=== PATIENT | female | born 1945 | race American Indian/Alaskan Native ===

== ENCOUNTER 2016-08-21 00:05 | Emergency (ER) | payer MEDICARE ==
[2016-08-21] MEDS ORDERED: TYLENOL PO ONE (00:46)
--- NOTE | 2016-08-21 03:08 | Emergency Department Report ---
HPI - General Chief Complaint: Rectal Pain Time Seen by Provider: 08/21/16 02:49 - HPI HPI: Room 7 The patient is a 70-year-old female presenting with a chief complaint of constipation. Patient presents the emergency department she has not had a bowel movement in 2-3 days. Patient denies nausea or vomiting. Patient does complain of right-sided abdominal pain. Approximately 2 weeks ago the patient was admitted to this Hospital and treated for colitis per the daughter. The patient was sent home on pain medication as well as antibiotics. Family cannot recall patient was placed on a stool softener with the pain medication. Location: Gastrointestinal system Duration: 2-3 days Quality: Pain Severity: Moderate Modifying factors: [see above] Context: [see above] Mode of transportation: [not driving] ED Past Medical Hx - Past Medical History Previous Medical History?: Yes Hx Hypertension: Yes Hx CVA: Yes Hx Heart Attack/AMI: Yes Hx Diabetes: Yes (NIDDM) Hx Renal Disease: Yes (ESRD) Hx Headaches / Migraines: Yes Additional medical history: gastroparesis - Surgical History Hx Coronary Stent: Yes Additional Surgical History: Right AKA - Family History Family history: no significant - Social History Smoking Status: Former Smoker (none for over 10 years) Substance Use Type: None (denies illicit drug use) - Medications Home Medications: Home Medications Medication Instructions Recorded Confirmed Last Taken Type Clopidogrel [Plavix] 75 mg PO QDAY 04/21/13 08/03/16 10/06/14 08:00 History amLODIPine [Norvasc] 5 mg PO DAILY 04/21/13 08/03/16 10/06/14 08:00 History Labetalol HCl [Trandate TAB] 300 mg PO DAILY 06/03/13 08/03/16 10/06/14 21:00 History Cyanocobalamin (Vitamin B-12) 1,000 mcg PO QDAY 12/09/13 08/03/16 10/06/14 20: 00 History [Vitamin B-12] Escitalopram [Lexapro] 10 mg PO DAILY 03/16/14 08/03/16 09/07/14 History Lisinopril 20 mg PO DAILY 03/16/14 08/03/16 10/06/14 08:00 History Sevelamer Carbonate [Renvela] 1,600 mg PO TIDWM 09/05/14 08/03/1615 17: 00 History Famotidine [Pepcid] 20 mg PO BID 09/07/14 08/03/16 10/06/14 17:00 History AtorvaSTATin [Lipitor] 20 mg PO DAILY 09/28/14 08/03/16 10/06/14 20:00 History Renal Cap 1 tab PO DAILY 09/28/14 08/03/16 10/06/14 08:00 History Ferrous Gluconate [Fergon 325 MG 324 mg PO BID 08/03/16 08/03/16 Unknown History tab] Ferrous Gluconate [Fergon 325 MG 324 mg PO BID #60 tablet 08/06/16 Unknown Rx tab] Folic Acid/Vit B Comp W-C [Renal 1 cap PO QDAY capsule 08/06/16 Unknown Rx Caps] Levofloxacin [Levaquin TAB] 250 mg PO Q24HR #7 tablet 08/06/16 Unknown Rx metroNIDAZOLE [Flagyl TAB] 500 mg PO Q8HR #20 tablet 08/06/16 Unknown Rx traMADol [Ultram 50 MG tab] 50 mg PO Q6HR PRN #30 tablet 08/06/16 Unknown Rx Docusate Sodium [Colace] 100 mg PO BID #60 capsule 08/21/16 Unknown Rx Lactulose [Cephulac] 20 gm PO QDAY PRN #90 ml 08/21/16 Unknown Rx ED Review of Systems ROS: Stated complaint: CONSTITPATION Other details as noted in HPI Comment: All other systems reviewed and negative Constitutional: denies: chills, fever Eyes: denies: eye pain, eye discharge, vision change ENT: denies: ear pain, throat pain Respiratory: denies: cough, shortness of breath, wheezing Cardiovascular: denies: chest pain, palpitations Endocrine: no symptoms reported Gastrointestinal: abdominal pain, constipation. denies: nausea, vomiting, diarrhea Genitourinary: denies: urgency, dysuria, discharge Musculoskeletal: denies: back pain, joint swelling, arthralgia Skin: denies: rash, lesions Neurological: denies: headache, weakness, paresthesias Psychiatric: denies: anxiety, depression Hematological/Lymphatic: denies: easy bleeding, easy bruising Physical Exam - Physical Exam Vital Signs: Vital Signs 08/21/16 00:38 Temperature 98 F Pulse Rate 79 Respiratory 20 Rate Blood Pressure 169/59 O2 Sat by Pulse 96 Oximetry Physical Exam: GENERAL: The patient is well-developed well-nourished female lying on stretcher appearing to be in moderate discomfort. [] HEENT: Normocephalic. Atraumatic. Extraocular motions are intact. Patient has moist mucous membranes. NECK: Supple. Trachea midline CHEST/LUNGS: Clear to auscultation. There is no respiratory distress noted. HEART/CARDIOVASCULAR: Regular. There is no tachycardia. There is no gallop rub or murmur. ABDOMEN: Abdomen is soft, with mild discomfort to palpation in the right abdomen. There is no tenderness palpation in the left abdomen. There is no rebound or guarding. Patient has normal bowel sounds. There is no abdominal distention. SKIN: There is no rash. There is no edema. There is no diaphoresis. NEURO: The patient is awake, alert, and oriented. The patient is cooperative. The patient has normal speech MUSCULOSKELETAL: There is no evidence of acute injury. RECTAL: MODERATE to large SIZEd GLOBUS OF BROWN STOOL IN THE PATIENT'S DIAPER ED Course Vital Signs 08/21/16 00:38 Temperature 98 F Pulse Rate 79 Respiratory 20 Rate Blood Pressure 169/59 O2 Sat by Pulse 96 Oximetry - Reevaluation(s) Reevaluation #1: 08/21/16 04:33 Patient states she feels better after having had a bowel movement. Patient denies any pain at this time ED Medical Decision Making - Radiology Data Radiology results: report reviewed (CT abdomen and pelvis), image reviewed (CT abdomen and pelvis) CT abdomen and pelvis (read by radiologist)-there is no evidence of intestinal or urinary tract instruction. No ileus or enteritis. There is significant fecal debris throughout the colon including the rectum. Some bowel wall thickening of the of the distal descending colon and rectum is noted. Slight inflammatory change in this region is possible. Fecal impaction is suspected. - Differential Diagnosis constipation, SBO, Critical care attestation.: If time is entered above; I have spent that time in minutes in the direct care of this critically ill patient, excluding procedure time. ED Disposition Clinical Impression: Constipation Disposition: DC-01 TO HOME OR SELFCARE Is pt being admited?: No Does the pt Need Aspirin: No Condition: Stable Instructions: Constipation (ED) Additional Instructions: Return to the emergency department immediately should you develop worsening symptoms, fever, inability to tolerate food or liquid or any other concerns. Prescriptions: Docusate Sodium [Colace] 100 mg PO BID #60 capsule Lactulose [Cephulac] 20 gm PO QDAY PRN #90 ml PRN Reason: Constipation Referrals: PRIMARY CARE, [Primary Care Provider] - 3-5 Days ARTUR BLOOM MD [Staff Physician] - 3-5 Days (Dr. Bloom is a nutrition services assistant. Please follow up with him for further evaluation) Time of Disposition: 04:41
--- NOTE | 2016-08-21 03:36 | Cat Scan Report ---
FINAL REPORT PROCEDURE: CT ABDOMEN PELVIS WO CON TECHNIQUE: Computerized axial tomography of the abdomen and pelvis was performed without intravenous contrast. This study is performed without intravascular contrast material and its sensitivity for abdominal and pelvic pathology, including neoplasms, inflammation, abscess, free fluid, thrombosis, arterial dissection and infarction, is reduced compared with a contrast enhanced study. HISTORY: right-sided abdominal pain, constipation COMPARISON: No prior studies are available for comparison. FINDINGS: Visualized lower thorax: Slight left lower lung infiltrate/atelectasis with mild bilateral lower lung effusions.. Liver: The liver size is normal. There are few small calcifications within the liver.. Spleen: The spleen size is normal. The attenuation is normal. Single small calcification in the upper spleen is identified. Granulomatous change is suspected.. Gallbladder and biliary system: The gallbladder is absent. No dilatation of the biliary ductal system. Pancreas: Normal. Adrenals: Normal. Kidneys: Both kidneys have a normal size. No hydronephrosis. There is a 3 millimeters stone in the lateral left renal cortex.. GI tract: The stomach is normal. The small bowel has a normal appearance. A small hiatal hernia is noted. No ileus or enteritis. The cecum and appendix region are normal. Moderate fecal debris throughout the colon. There is moderate fecal debris within the rectum. Fecal impaction is suspected. There is some thickening of the bowel wall involving the distal sigmoid colon is well as the rectum. This may be related to inflammatory change in this region. Recheck imaging after clinical therapy for this acute process is recommended.. Lymph nodes and mesentery: Normal. Vasculature: Moderate atherosclerosis of the aorta and all branching vessels.. Bladder: Normal. Reproductive organs: Normal. Peritoneum: No free fluid. Musculoskeletal structures: Moderate degenerative changes of the lower lumbar spine.. Other: None. IMPRESSION: There is no evidence of intestinal or urinary tract obstruction. No ileus or enteritis. There is significant fecal debris throughout the colon including the rectum. Some bowel wall thickening of the distal descending colon and rectum is noted. Slight inflammatory change in this region is possible. Fecal impaction is suspected..
[2016-08-21] MEDS ORDERED: CEPHULAC PO ONE (04:29)
[2016-08-21 04:42] VITALS: BP 142/56
[2016-08-21] MEDS ORDERED: ZOFRAN ONE (04:57)
[2016-08-21] MEDS ORDERED: ZOFRAN IV ONE (05:05)
== END 2016-08-21 06:31 | disposition home or self-care (01) ==
LOC: ED 00:05
DX: K59.00 Constipation, unspecified (principal); I12.0 Hypertensive chronic kidney disease with stage 5 chronic kidney disease or end stage renal disease; E11.22 Type 2 diabetes mellitus with diabetic chronic kidney disease; N18.6 End stage renal disease; G43.909 Migraine, unspecified, not intractable, without status migrainosus; I25.2 Old myocardial infarction; Z86.73 Personal history of transient ischemic attack (TIA), and cerebral infarction without residual deficits; Z95.1 Presence of aortocoronary bypass graft; Z87.891 Personal history of nicotine dependence; Z79.02 Long term (current) use of antithrombotics/antiplatelets
CPT/HCPCS: 74176; 96374; 99284; J2405

== ENCOUNTER 2017-09-30 06:04 | Emergency (ER) | payer MEDICARE ==
--- NOTE | 2017-09-30 07:20 | Emergency Department Report ---
ED General Adult HPI - General Chief complaint: Extremity Injury, Upper Stated complaint: HYPERTENSION Time Seen by Provider: 09/30/17 07:10 Source: patient, EMS (ems notes not available at time of chart dictation), RN notes reviewed, old records reviewed Mode of arrival: Stretcher Limitations: Physical Limitation - History of Present Illness Initial comments: Nephrology: [facility] nephrology Past medical history: Peripheral vascular disease, right above-knee amputation, hypertension, dyslipidemia, stroke with right-sided deficits, heart disease with stents 2, end-stage renal disease on dialysis, type 2 diabetes, typically in a wheelchair This is a 71-year-old female, right-hand dominant, unknown to this provider previously, who presents to the ER with a complaint of nontraumatic left hand pain and wrist pain. She indicates the pain started yesterday. She indicates she gets worse when she wheels her wheelchair around. The pain does not radiate anywhere. It is achy and sharp. She is due for dialysis today. She denies headache, neck pain, chest pain, abdominal pain, shortness of breath. She also denies abdominal pain -: Sudden Location: left, upper extremity Radiation: non-radiation Quality: aching Consistency: other Improves with: other Worsens with: other Associated Symptoms: malaise, weakness (chronic). denies: confusion, chest pain , cough, diaphoresis, fever/chills, headaches, loss of appetite, nausea/vomiting , rash, seizure, shortness of breath, syncope - Related Data Home Medications Medication Instructions Recorded Confirmed Last Taken Clopidogrel [Plavix] 75 mg PO QDAY 04/21/13 08/03/16 10/06/14 08:00 amLODIPine [Norvasc] 5 mg PO DAILY 04/21/13 08/03/16 10/06/14 08:00 Labetalol HCl [Trandate TAB] 300 mg PO DAILY 06/03/13 08/03/16 10/06/14 21:00 Cyanocobalamin (Vitamin B-12) 1,000 mcg PO QDAY 12/09/13 08/03/16 10/06/14 20:00 [Vitamin B-12] Escitalopram [Lexapro] 10 mg PO DAILY 03/16/14 08/03/16 09/07/14 Lisinopril 20 mg PO DAILY 03/16/14 08/03/1610/06/15 08:00 Sevelamer Carbonate [Renvela] 1,600 mg PO TIDWM 09/05/14 08/03/16 10/06/14 17:00 Famotidine [Pepcid] 20 mg PO BID 09/07/14 08/03/16 10/06/14 17:00 AtorvaSTATin [Lipitor] 20 mg PO DAILY 09/28/14 08/03/16 10/06/14 20:00 Renal Cap 1 tab PO DAILY 09/28/14 08/03/16 10/06/14 08:00 Ferrous Gluconate [Fergon 325 MG 324 mg PO BID 08/03/16 08/03/16 Unknown tab] Previous Rx's Medication Instructions Recorded Last Taken Type Ferrous Gluconate [Fergon 325 MG 324 mg PO BID #60 tablet 08/06/16 Unknown Rx tab] Folic Acid/Vit B Comp W-C [Renal 1 cap PO QDAY capsule 08/06/16 Unknown Rx Caps] Levofloxacin [Levaquin TAB] 250 mg PO Q24HR #7 tablet 08/06/16 Unknown Rx metroNIDAZOLE [Flagyl TAB] 500 mg PO Q8HR #20 tablet 08/06/16 Unknown Rx traMADol [Ultram 50 MG tab] 50 mg PO Q6HR PRN #30 tablet 08/06/16 Unknown Rx Docusate Sodium [Colace] 100 mg PO BID #60 capsule 08/21/16 Unknown Rx Lactulose [Cephulac] 20 gm PO QDAY PRN #90 ml 08/21/16 Unknown Rx Ondansetron [Zofran Odt] 4 mg PO Q8HR #12 tab.rapdis 08/21/16 Unknown Rx Acetaminophen [Tylenol Arthritis] 650 mg PO Q6HR PRN #30 tablet.er 09/30/17 Unknown Rx Allergies Allergy/AdvReac Type Severity Reaction Status Date / Time No Known Allergies Allergy Verified 06/14/13 10:48 ED Review of Systems ROS: Stated complaint: HYPERTENSION Other details as noted in HPI Constitutional: denies: fever Eyes: denies: eye discharge ENT: denies: epistaxis Respiratory: denies: cough Cardiovascular: denies: chest pain Gastrointestinal: denies: abdominal pain Genitourinary: denies: dysuria Musculoskeletal: arthralgia, myalgia Neurological: weakness ED Past Medical Hx - Past Medical History Previous Medical History?: Yes Hx Hypertension: Yes Hx CVA: Yes Hx Heart Attack/AMI: Yes Hx Congestive Heart Failure: No Hx Diabetes: Yes (NIDDM) Hx Deep Vein Thrombosis: No Hx Pulmonary Embolism: No Hx GERD: No Hx Liver Disease: No Hx Renal Disease: Yes (ESRD) Hx Sickle Cell Disease: No Hx Arthritis: No Hx Headaches / Migraines: Yes Hx Seizures: No Hx Kidney Stones: No Hx Psychiatric Treatment: No Hx Asthma: No Hx COPD: No Hx Tuberculosis: No Hx Dementia: No Hx HIV: No Additional medical history: gastroparesis - Surgical History Hx Coronary Stent: Yes Hx Open Heart Surgery: No Hx Pacemaker: No Hx Internal Defibrillator: No Hx Cholecystectomy: No Hx Appendectomy: No Hx Breast Surgery: No Additional Surgical History: Right AKA - Social History Smoking Status: Former Smoker Substance Use Type: None - Medications Home Medications: Home Medications Medication Instructions Recorded Confirmed Last Taken Type Clopidogrel [Plavix] 75 mg PO QDAY 04/21/13 08/03/16 10/06/14 08:00 History amLODIPine [Norvasc] 5 mg PO DAILY 04/21/13 08/03/16 10/06/14 08:00 History Labetalol HCl [Trandate TAB] 300 mg PO DAILY 06/03/13 08/03/16 10/06/14 21:00 History Cyanocobalamin (Vitamin B-12) 1,000 mcg PO QDAY 12/09/13 08/03/16 10/06/14 20: 00 History [Vitamin B-12] Escitalopram [Lexapro] 10 mg PO DAILY 03/16/14 08/03/16 09/07/14 History Lisinopril 20 mg PO DAILY 03/16/14 08/03/16 10/06/14 08:00 History Sevelamer Carbonate [Renvela] 1,600 mg PO TIDWM 09/05/14 08/03/16 10/06/14 17: 00 History Famotidine [Pepcid] 20 mg PO BID 09/07/14 08/03/16 10/06/14 17:00 History AtorvaSTATin [Lipitor] 20 mg PO DAILY 09/28/14 08/03/16 10/06/14 20:00 History Renal Cap 1 tab PO DAILY 09/28/14 08/03/16 10/06/14 08:00 History Ferrous Gluconate [Fergon 325 MG 324 mg PO BID 08/03/16 08/03/16 Unknown History tab] Ferrous Gluconate [Fergon 325 MG 324 mg PO BID #60 tablet 08/06/16 Unknown Rx tab] Folic Acid/Vit B Comp W-C [Renal 1 cap PO QDAY capsule 08/06/16 Unknown Rx Caps] Levofloxacin [Levaquin TAB] 250 mg PO Q24HR #7 tablet 08/06/16 Unknown Rx metroNIDAZOLE [Flagyl TAB] 500 mg PO Q8HR #20 tablet 08/06/16 Unknown Rx traMADol [Ultram 50 MG tab] 50 mg PO Q6HR PRN #30 tablet 08/06/16 Unknown Rx Docusate Sodium [Colace] 100 mg PO BID #60 capsule 08/21/16 Unknown Rx Lactulose [Cephulac] 20 gm PO QDAY PRN #90 ml 08/21/16 Unknown Rx Ondansetron [Zofran Odt] 4 mg PO Q8HR #12 tab.rapdis 08/21/16 Unknown Rx Acetaminophen [Tylenol Arthritis] 650 mg PO Q6HR PRN #30 tablet.er 09/30/17 Unknown Rx ED Physical Exam - General Limitations: Physical Limitation General appearance: alert, in no apparent distress - Head Head exam: Present: atraumatic, normocephalic - Eye Eye exam: Present: normal appearance, EOMI - ENT ENT exam: Present: normal exam, normal orophraynx, mucous membranes moist, normal external ear exam - Neck Neck exam: Present: normal inspection, full ROM. Absent: tenderness, meningismus - Respiratory Respiratory exam: Present: normal lung sounds bilaterally. Absent: respiratory distress - Cardiovascular Cardiovascular Exam: Present: regular rate, normal rhythm, normal heart sounds. Absent: bradycardia, tachycardia, irregular rhythm, systolic murmur, diastolic murmur, rubs, gallop - GI/Abdominal GI/Abdominal exam: Present: soft. Absent: distended, tenderness, guarding, rebound, rigid, pulsatile mass - Extremities Exam Extremities exam: Present: normal inspection, tenderness (sensation is intact to light touch in the bilateral deltoid, median, radial, ulnar distribution. There is no humerus tenderness, there is no elbow tenderness, and there is no forearm tenderness. The volar aspect of the left wrist is tender. There is pain with passive range of motion of the left wrist. Thumb opposition is intact , limited medical function is intact, finger flexors, finger extensors are intact.), other (2+ pulses noted in the bilateral upper extremities. There is an upper extremity AV fistula, with no redness, pus, streaking. The right lower extremity is status post above-knee application. The left lower extremity has 2+ edema in the lower extremity.). Absent: calf tenderness - Back Exam Back exam: Present: normal inspection. Absent: tenderness, CVA tenderness (R), paraspinal tenderness, vertebral tenderness - Neurological Exam Neurological exam: Present: alert, other (there is no facial droop. The tongue is midline. Extraocular movements are intact bilaterally. 5 out of 5 strength bilateral upper extremities, left lower extremity, right lower extremity stump also has 5 out of 5 strength.) - Psychiatric Psychiatric exam: Present: normal affect, normal mood - Skin Skin exam: Present: warm, dry, intact, normal color. Absent: rash ED Course Vital Signs 09/30/17 09/30/17 09/30/17 06:10 06:12 06:15 Temperature 98.2 F Pulse Rate 64 Respiratory 18 Rate Blood Pressure 169/55 169/55 Blood Pressure [Left] O2 Sat by Pulse 94 95 94 Oximetry 09/30/17 09/30/17 09/30/17 06:26 08:13 09:15 Temperature Pulse Rate 66 Respiratory 18 16 16 Rate Blood Pressure Blood Pressure 152/57 [Left] O2 Sat by Pulse 95 97 Oximetry - Reevaluation(s) Reevaluation #1: 09/30/17 07:55 Differential diagnosis, including but not limited to: Arthritis, tendinitis, fracture, dislocation, overuse syndrome, end-stage renal disease, hyperkalemia Assessment and plan: 71-year-old female, [id number] presenting with left wrist tenderness, and the context of wheelchair use. This is most likely a tendinitis. She is due for dialysis today. She has no other complaints. She is afebrile with reassuring vital signs. We will give her pain medication, obtain plain films of the wrist and hand, and obtain a basic metabolic panel to check potassium. We will reassess. Reevaluation #2: 09/30/17 09:53 X-ray of the wrist and hand negative for acute disease/fracture. Soft tissue swelling is noted. The physical examination is not consistent with compartment syndrome or cellulitis. I have discussed this with her private rn document improvement specialist, Dr. Romero, who indicates the patient can follow up for outpatient dialysis later on today, he will call the dialysis center and get her on the list for dialysis. ED Medical Decision Making - Lab Data Result diagrams: 09/30/17 08:12 Critical care attestation.: If time is entered above; I have spent that time in minutes in the direct care of this critically ill patient, excluding procedure time. ED Disposition Clinical Impression: End stage renal disease on dialysis, Left wrist pain Disposition: TO HOME OR SELFCARE Is pt being admited?: No Does the pt Need Aspirin: No Condition: Stable Instructions: Chronic Kidney Disease (ED) Additional Instructions: Keep the left wrist in a splint. Apply range of motion to the left upper extremity as tolerated. The patient should use the left hand as she can physically tolerated. Rest, and avoid heavy lifting and avoid strenuous physical activity. Follow-up with the primary care doctor or orthopedist within the next 2 weeks for the left hand and wrist pain. Continue outpatient medications and outpatient dialysis. Return to the ER right away with new pain , worsened pain, migration of pain, fevers, chills, lethargy, irritability, projectile vomiting, change in mental status, confusion, inability to tolerate feeds. Referrals: PRIMARY CARE, [Primary Care Provider] - 3-5 Days LANCE MONCADA MD [Staff Physician] - 3-5 Days MICHELA ROMERO MD [Staff Physician] - 3-5 Days
[2017-09-30] MEDS ORDERED: TYLENOL PO ONE (07:56)
--- NOTE | 2017-09-30 08:52 | XRay Report ---
LEFT WRIST, 2 VIEWS: LEFT HAND, 2 VIEWS: HISTORY: Hand pain, wrist pain. Osteopenia is evident. No evidence for fracture, dislocation or erosive joint pathology. Minor osteoarthritic changes are noted. There is mild soft tissue swelling at the level of the wrist. IMPRESSION: Osteopenia. Soft tissue swelling. Minor degenerative changes.
[2017-09-30 09:11] LABS: Calcium 8.6 mg/dL (8.4-10.2)
[2017-09-30 11:43] VITALS: BP 158/86
== END 2017-09-30 10:45 | disposition home or self-care (01) ==
LOC: ED 06:04
DX: M25.532 Pain in left wrist (principal); I13.11 Hypertensive heart and chronic kidney disease without heart failure, with stage 5 chronic kidney disease, or end stage renal disease; N18.6 End stage renal disease; E11.22 Type 2 diabetes mellitus with diabetic chronic kidney disease; Z99.2 Dependence on renal dialysis; G43.909 Migraine, unspecified, not intractable, without status migrainosus; E78.5 Hyperlipidemia, unspecified; Z89.611 Acquired absence of right leg above knee; Z87.891 Personal history of nicotine dependence
CPT/HCPCS: 36415; 80048; 99284

== ENCOUNTER 2017-10-09 11:44 | Inpatient (IN) | payer MEDICARE ==
[2017-10-09 12:58] LABS: Basophils # (Auto) 0.1 K/mm3 (0.0-0.1); Basophils % (Auto) 1.2 % (0.0-1.8); Eosinophils # (Auto) 0.1 K/mm3 (0.0-0.4); Eosinophils % (Auto) 1.5 % (0.0-4.3); Hematocrit 32.3 % (30.3-42.9); Hemoglobin 10.9 gm/dl (10.1-14.3); Lymphocytes # (Auto) 0.7 K/mm3 (1.2-5.4); Lymphocytes % (Auto) 15.9 % (13.4-35.0); Mean Corpuscular HGB Conc 34 % (30-34); Mean Corpuscular Hemoglobin 32 pg (28-32); Mean Corpuscular Volume 93 fl (79-97); Monocytes # (Auto) 0.4 K/mm3 (0.0-0.8); Monocytes % (Auto) 8.4 % (0.0-7.3); Platelet Count 147 K/mm3 (140-440); Red Blood Count 3.46 M/mm3 (3.65-5.03); Red Cell Distribution Width 15.9 % (13.2-15.2)
[2017-10-09 13:08] LABS: INR 0.99 (0.87-1.13)
[2017-10-09 13:23] LABS: Albumin 3.8 g/dL (3.9-5); Calcium 8.9 mg/dL (8.4-10.2)
[2017-10-09 13:49] LABS: Chol/HDL Ratio 1.83 %
--- NOTE | 2017-10-09 14:03 | Cat Scan Report ---
CT head without contrast: Weakness. Axial images demonstrates an area of diffuse encephalomalacia extending from the left frontal area to the posterior parietal region. There is mild enlargement of the peripheral sulci. The intracranial findings are otherwise unremarkable. The visualized bony structures are unremarkable. A small right ethmoid polyp is identified. The visualized sinuses are otherwise unremarkable. These findings are all unchanged compared to exams dating back to August 2014. Impression: Left encephalomalacia consistent with prior infarction. No acute findings.
--- NOTE | 2017-10-09 14:11 | Emergency Department Report ---
ED General Adult HPI - General Chief complaint: Weakness Stated complaint: NAUSEA/WEAK Time Seen by Provider: 10/09/17 12:11 Source: patient, EMS (ems notes not available at time of chart dictation), RN notes reviewed, old records reviewed Mode of arrival: Stretcher Limitations: Altered Mental Status, Physical Limitation - History of Present Illness Initial comments: This is a 71-year-old female. Please see my note detailing the patient's past medical history from 09/30/2017. She is sent to the ER from her dialysis clinic for evaluation of nausea and vomiting. As per verbal report from Elizabeth nurse practitioner director of sports performance, patient was plugged up to dialysis, vomited 2, given Phenergan, did not stop vomiting, and was sent to the ER for further evaluation. Upon arrival to the ER, the patient is sleepy, and only complains of having a dry mouth. She has no other complaints. She cannot tell me her last known well time, exacerbating or relieving factors, or radiation. -: unknown Severity scale (0 -10): 0 Quality: other Consistency: other Improves with: other Worsens with: other Associated Symptoms: confusion, nausea/vomiting, weakness, other - Related Data Home Medications Medication Instructions Recorded Confirmed Last Taken Clopidogrel [Plavix] 75 mg PO QDAY 04/21/13 10/09/17 10/06/14 08:00 Cyanocobalamin (Vitamin B-12) 1,000 mcg PO QDAY 12/09/13 10/09/17 10/06/14 20:00 [Vitamin B-12] Escitalopram [Lexapro] 10 mg PO DAILY 03/16/14 10/09/17 09/07/14 Sevelamer Carbonate [Renvela] 800 mg PO TIDWM 09/05/14 10/09/17 10/06/14 17:00 Famotidine [Pepcid] 20 mg PO BID 09/07/14 10/09/17 10/06/14 17:00 AtorvaSTATin [Lipitor] 20 mg PO DAILY 09/28/14 10/09/17 10/06/14 20:00 B Complex 11/Folic/C/Biot/Zinc 1 each PO DAILY 10/09/17 10/09/17 Unknown [Dialyvite with Zinc Tablet] Cinacalcet [Sensipar] 30 mg PO HS 10/09/17 10/09/17 Unknown Ergocalciferol [Vitamin D2] 1 cap PO QWEEK 10/09/17 10/09/17 Unknown HYDROcodone/APAP 7.5-325 [Staples 1 each PO Q6HR PRN 10/09/17 10/09/17 Unknown 7.5/325] Lisinopril [Zestril] 10 mg PO QDAY 10/09/17 10/09/17 Unknown Nephrocaps Softgel 1 each PO DAILY 10/09/17 10/09/17 Unknown Ondansetron [Zofran TAB] 4 mg PO Q6H PRN 10/09/17 10/09/17 Unknown Polyethylene Glycol 3350 17 gm PO PRN PRN 10/09/17 10/09/17 Unknown [Smoothlax] traMADol [Ultram 50 MG tab] 50 mg PO Q4H PRN 10/09/17 10/09/17 Unknown Previous Rx's Medication Instructions Recorded Last Taken Type Acetaminophen [Tylenol Arthritis] 650 mg PO Q6HR PRN #30 tablet.er 09/30/17 Unknown Rx Allergies Allergy/AdvReac Type Severity Reaction Status Date / Time No Known Allergies Allergy Verified 06/14/13 10:48 ED Review of Systems ROS: Stated complaint: NAUSEA/WEAK Other details as noted in HPI Comment: Unobtainable due to pts medical conditions ED Past Medical Hx - Past Medical History Hx Hypertension: Yes Hx CVA: Yes Hx Heart Attack/AMI: Yes Hx Congestive Heart Failure: No Hx Diabetes: Yes (NIDDM) Hx Deep Vein Thrombosis: No Hx Pulmonary Embolism: No Hx GERD: No Hx Liver Disease: No Hx Renal Disease: Yes (ESRD) Hx Sickle Cell Disease: No Hx Arthritis: No Hx Headaches / Migraines: Yes Hx Seizures: No Hx Kidney Stones: No Hx Psychiatric Treatment: No Hx Asthma: No Hx COPD: No Hx Tuberculosis: No Hx Dementia: No Hx HIV: No Additional medical history: gastroparesis - Surgical History Hx Coronary Stent: Yes Hx Open Heart Surgery: No Hx Pacemaker: No Hx Internal Defibrillator: No Hx Cholecystectomy: No Hx Appendectomy: No Hx Breast Surgery: No Additional Surgical History: Right AKA - Social History Smoking Status: Former Smoker Substance Use Type: None - Medications Home Medications: Home Medications Medication Instructions Recorded Confirmed Last Taken Type Clopidogrel [Plavix] 75 mg PO QDAY 04/21/13 10/09/17 10/06/14 08:00 History Cyanocobalamin (Vitamin B-12) 1,000 mcg PO QDAY 12/09/13 10/09/17 10/06/14 20: 00 History [Vitamin B-12] Escitalopram [Lexapro] 10 mg PO DAILY 03/16/14 10/09/17 09/07/14 History Sevelamer Carbonate [Renvela] 800 mg PO TIDWM 09/05/14 10/09/17 10/06/14 17:00 History Famotidine [Pepcid] 20 mg PO BID 09/07/14 10/09/17 10/06/14 17:00 History AtorvaSTATin [Lipitor] 20 mg PO DAILY 09/28/14 10/09/17 10/06/14 20:00 History Acetaminophen [Tylenol Arthritis] 650 mg PO Q6HR PRN #30 tablet.er 09/30/17 Unknown Rx B Complex 11/Folic/C/Biot/Zinc 1 each PO DAILY 10/09/17 10/09/17 Unknown History [Dialyvite with Zinc Tablet] Cinacalcet [Sensipar] 30 mg PO HS 10/09/17 10/09/17 Unknown History Ergocalciferol [Vitamin D2] 1 cap PO QWEEK 10/09/17 10/09/17 Unknown History HYDROcodone/APAP 7.5-325 [Staples 1 each PO Q6HR PRN 10/09/17 10/09/17 Unknown History 7.5/325] Lisinopril [Zestril] 10 mg PO QDAY 10/09/17 10/09/17 Unknown History Nephrocaps Softgel 1 each PO DAILY 10/09/17 10/09/17 Unknown History Ondansetron [Zofran TAB] 4 mg PO Q6H PRN 10/09/17 10/09/17 Unknown History Polyethylene Glycol 3350 17 gm PO PRN PRN 10/09/17 10/09/17 Unknown History [Smoothlax] traMADol [Ultram 50 MG tab] 50 mg PO Q4H PRN 10/09/17 10/09/17 Unknown History ED Physical Exam - General Limitations: Altered Mental Status General appearance: lethargic - Head Head exam: Present: atraumatic, normocephalic - Eye Eye exam: Present: normal appearance, EOMI - ENT ENT exam: Present: normal exam, normal orophraynx, mucous membranes moist, normal external ear exam - Neck Neck exam: Present: normal inspection, full ROM. Absent: tenderness, meningismus - Respiratory Respiratory exam: Present: decreased breath sounds. Absent: respiratory distress, wheezes, rales, rhonchi, stridor - Cardiovascular Cardiovascular Exam: Present: regular rate, normal rhythm, normal heart sounds, systolic murmur. Absent: bradycardia, tachycardia, irregular rhythm, diastolic murmur, rubs, gallop - GI/Abdominal GI/Abdominal exam: Present: soft. Absent: distended, tenderness, guarding, rebound, rigid, pulsatile mass - Extremities Exam Extremities exam: Present: normal inspection, pedal edema, other (2+ pulses noted in the bilateral upper, lower extremities. There is an upper extremity AV graft with no redness, pus or streaking and an appropriate thrill. Right lower extremity is status post above amputation). Absent: tenderness, calf tenderness - Back Exam Back exam: Present: normal inspection. Absent: tenderness, paraspinal tenderness - Neurological Exam Neurological exam: Present: altered, other (patient moves 4 extremities to command. Sensation is intact to light touch in the bilateral upper, lower extremities. Remainder of neurologic examination is limited secondary to patient's inability to cooperate with the exam.) - Psychiatric Psychiatric exam: Present: normal affect, normal mood - Skin Skin exam: Present: warm, dry, intact, normal color. Absent: rash ED Course Vital Signs 10/09/17 10/09/17 10/09/17 12:06 12:15 12:30 Temperature 98.6 F Pulse Rate 71 Respiratory 20 Rate Blood Pressure 180/65 184/64 Blood Pressure 185/54 [Left] O2 Sat by Pulse 97 95 96 Oximetry 10/09/17 10/09/17 10/09/17 13:01 13:24 13:26 Temperature 98.3 F 98.3 F Pulse Rate Respiratory Rate Blood Pressure 182/62 Blood Pressure [Left] O2 Sat by Pulse 96 Oximetry 10/09/17 10/09/17 10/09/17 13:57 14:01 14:15 Temperature Pulse Rate Respiratory Rate Blood Pressure 182/62 162/59 162/59 Blood Pressure [Left] O2 Sat by Pulse 97 98 93 Oximetry 10/09/17 10/09/17 10/09/17 16:02 16:15 16:31 Temperature Pulse Rate Respiratory Rate Blood Pressure 162/59 143/54 153/55 Blood Pressure [Left] O2 Sat by Pulse 100 94 94 Oximetry 10/09/17 10/09/17 10/09/17 16:45 17:01 17:15 Temperature Pulse Rate Respiratory Rate Blood Pressure 150/52 165/52 165/53 Blood Pressure [Left] O2 Sat by Pulse 95 95 96 Oximetry 10/09/17 10/09/17 17:23 17:25 Temperature 98.6 F Pulse Rate Respiratory 18 Rate Blood Pressure Blood Pressure [Left] O2 Sat by Pulse 100 Oximetry - Reevaluation(s) Reevaluation #1: 10/09/17 14:12 Differential diagnosis, including but not limited to: Intracranial lesion, pneumonia, urinary tract infection, intra-abdominal lesion, medication side effects Assessment and plan: 71-year-old female currently with altered mental status, who was sent to the ER for antecedent nausea and vomiting during dialysis. She is alert to name, place and month but is very sleepy. Her mental status has dramatically changed from my prior evaluation of this patient [address] scan of the brain is negative, urinalysis is pending, x-ray of the chest is unremarkable. Noncontrast CT scan of the abdomen and pelvis is pending. Nephrology on board, have discussed with Elizabeth, whose nurse practitioner working with Dr. Romero. I highly suspect that the primary etiology of the patient's somnolence is the Phenergan that was given to her prior to my arrival. A noncontrast CT scan of the abdomen and pelvis is pending, elevated troponin is appreciated, it is at baseline when compared to prior values, it is most likely secondary to her underlying renal insufficiency. The EKG is morphologically unchanged from prior. Reevaluation #2: 10/09/17 15:43 Patient was still sleepy but arousable. Her CT scan does not demonstrate any significant disease or pathology. Chronic findings noted. Suspect toxic encephalopathy from Phenergan versus dialysis disequilibrium syndrome. Dr. Feliz accepted the patient to the medical service for persistent encephalopathy. Patient was on a charcoal candidate as we do not know when she had the Phenergan, and she is very sleepy and therefore an aspiration risk. ED Medical Decision Making - Lab Data Result diagrams: 10/09/17 12:39 10/09/17 12:39 Vital Signs 10/09/17 10/09/17 10/09/17 12:06 12:15 12:30 Temperature 98.6 F Pulse Rate 71 Respiratory 20 Rate Blood Pressure 180/65 184/64 Blood Pressure 185/54 [Left] O2 Sat by Pulse 97 95 96 Oximetry 10/09/17 10/09/17 10/09/17 13:01 13:24 13:26 Temperature 98.3 F 98.3 F Pulse Rate Respiratory Rate Blood Pressure 182/62 Blood Pressure [Left] O2 Sat by Pulse 96 Oximetry Lab Results 10/09/17 10/09/17 10/09/17 Range/Units 12:39 12:39 12:39 WBC 4.7 (4.5-11.0) K/mm3 RBC 3.46 L (3.65-5.03) M/mm3 Hgb 10.9 (10.1-14.3) gm/dl Hct 32.3 (30.3-42.9) % MCV 93 (79-97) fl MCH 32 (28-32) pg MCHC 34 (30-34) % RDW 15.9 H (13.2-15.2) % Plt Count 147 (140-440) K/mm3 Lymph % (Auto) 15.9 (13.4-35.0) % [place] % (Auto) 8.4 H (0.0-7.3) % Eos % (Auto) 1.5 (0.0-4.3) % Baso % (Auto) 1.2 (0.0-1.8) % Lymph # 0.7 L (1.2-5.4) K/mm3 [place] # 0.4 (0.0-0.8) K/mm3 Eos # 0.1 (0.0-0.4) K/mm3 Baso # 0.1 (0.0-0.1) K/mm3 Seg Neutrophils % 73.0 H (40.0-70.0) % Seg Neutrophils # 3.4 (1.8-7.7) K/mm3 PT 13.6 (12.2-14.9) Sec. INR 0.99 (0.87-1.13) Sodium 136 L (137-145) mmol/L Potassium 4.2 (3.6-5.0) mmol/L Chloride 97.9 L (98-107) mmol/L Carbon Dioxide 20 L (22-30) mmol/L Anion Gap 22 mmol/L BUN 20 H (7-17) mg/dL Creatinine 4.8 H (0.7-1.2) mg/dL Estimated GFR 11 ml/min BUN/Creatinine Ratio 4 % Glucose 91 (65-100) mg/dL Calcium 8.9 (8.4-10.2) mg/dL Magnesium 2.00 (1.7-2.3) mg/dL Total Bilirubin 0.40 (0.1-1.2) mg/dL AST 18 (5-40) units/L ALT 11 (7-56) units/L Alkaline Phosphatase 261 H (35-129) units/L Total Creatine Kinase 91 (30-135) units/L Troponin T 0.215 H* (0.00-0.029) ng/mL Total Protein 6.9 (6.3-8.2) g/dL Albumin 3.8 L (3.9-5) g/dL Albumin/Globulin Ratio 1.2 % Triglycerides 101 (2-149) mg/dL Cholesterol 123 (50-199) mg/dL LDL Cholesterol Direct 44 L (50-130) mg/dL HDL Cholesterol 67 H (40-59) mg/dL Cholesterol/HDL Ratio 1.83 % TSH (0.270-4.200) mlU/mL 10/09/17 Range/Units 12:39 WBC (4.5-11.0) K/mm3 RBC (3.65-5.03) M/mm3 Hgb (10.1-14.3) gm/dl Hct (30.3-42.9) % MCV (79-97) fl MCH (28-32) pg MCHC (30-34) % RDW (13.2-15.2) % Plt Count (140-440) K/mm3 Lymph % (Auto) (13.4-35.0) % [place] % (Auto) (0.0-7.3) % Eos % (Auto) (0.0-4.3) % Baso % (Auto) (0.0-1.8) % Lymph # (1.2-5.4) K/mm3 [place] # (0.0-0.8) K/mm3 Eos # (0.0-0.4) K/mm3 Baso # (0.0-0.1) K/mm3 Seg Neutrophils % (40.0-70.0) % Seg Neutrophils # (1.8-7.7) K/mm3 PT (12.2-14.9) Sec. INR (0.87-1.13) Sodium (137-145) mmol/L Potassium (3.6-5.0) mmol/L Chloride (98-107) mmol/L Carbon Dioxide (22-30) mmol/L Anion Gap mmol/L BUN (7-17) mg/dL Creatinine (0.7-1.2) mg/dL Estimated GFR ml/min BUN/Creatinine Ratio % Glucose (65-100) mg/dL Calcium (8.4-10.2) mg/dL Magnesium (1.7-2.3) mg/dL Total Bilirubin (0.1-1.2) mg/dL AST (5-40) units/L ALT (7-56) units/L Alkaline Phosphatase (35-129) units/L Total Creatine Kinase (30-135) units/L Troponin T (0.00-0.029) ng/mL Total Protein (6.3-8.2) g/dL Albumin (3.9-5) g/dL Albumin/Globulin Ratio % Triglycerides (2-149) mg/dL Cholesterol (50-199) mg/dL LDL Cholesterol Direct (50-130) mg/dL HDL Cholesterol (40-59) mg/dL Cholesterol/HDL Ratio % TSH 0.921 (0.270-4.200) mlU/mL - EKG Data -: EKG Interpreted by Me EKG shows normal: sinus rhythm - EKG Data When compared to previous EKG there are: no significant change 10/09/17 14:11 Sinus, 72 bpm, left axis deviation, QTC within normal limits, prolonged IL interval, poor R-wave progression, abnormal EKG, not an ST elevation myocardial infarction, appears unchanged from prior from July 2016 - Radiology Data Radiology results: report reviewed, image reviewed interpreted by me: X-ray of the chest shows cardiomegaly and pulmonary vascular congestion. May be related to portable technique. No obvious infiltrate Noncontrast CT scan of the brain shows prior infarction with no acute findings Patient: SAVI ARROYO MR#: [id number] : 1945 Acct:[id number] Age/Sex: 71 / F ADM Date: 10/09/17 Loc: ED Attending Dr: Ordering Physician: FRANCISCO JAVIER RESENDIZ MD Date of Service: 10/09/17 Procedure(s): CT abdomen pelvis wo con Accession Number(s): [id number] cc: FRANCISCO JAVIER RESENDIZ MD CT chest and abdomen without contrast: Nausea vomiting, confusion. Transverse images are obtained of the low chest to the ischium. Coronal and sagittal reformatted images included. Comparison made to prior exam in August 2016. Patchy opacities are identified at both lung bases with small bilateral effusions. These findings are similar to prior exam. Scattered calcifications are present in the liver and spleen. The splenic length is 12.4 cm and the overall volume appears somewhat increased. No focal lesion noted. Splenic length may be slightly greater than previous study. The pancreatic head is difficult to fully assess but appears grossly normal. The gallbladder has been removed. Extensive vascular calcification is noted in the aorta, mesenteric and pancreatic vasculature. The renal arteries appear generally spared. A small calculus is noted in the inferior right kidney which moved from the superior to the lower pole compared to prior exam. Small calculus is noted in the inferior left kidney. There is no evidence of hydronephrosis and no renal masses. There is a small umbilical hernia containing mesenteric fat. The unopacified small bowel is generally unremarkable. Scattered fecal matter is present throughout the non-distended colon. The rectum however is gaseously distended. The renae-rectal thickening noted on prior examination is less prevalent on the current study. No focal inflammatory changes or abnormal fluid collections are identified. The reproductive organs are been removed. There are no destructive bone lesions noted however the bones are demineralized with diffuse discogenic narrowing at multiple levels with collapse at L4-5. Impressions: 1. Chronic effusion/patchy bibasilar opacities. 2. Evidence of prior granulomatous infection of the liver and spleen. Mild splenic enlargement of the spleen. 3. No evidence of bowel obstruction or inflammation. Gaseous distention of the rectum. 4. Nonobstructing tiny renal calculi. Critical care attestation.: If time is entered above; I have spent that time in minutes in the direct care of this critically ill patient, excluding procedure time. ED Disposition Clinical Impression: End stage renal disease on dialysis, Dialysis disequilibrium syndrome Disposition: OP ADMIT IP TO THIS HOSP Is pt being admited?: Yes Condition: Fair
--- NOTE | 2017-10-09 14:41 | XRay Report ---
FINAL REPORT EXAM: XR CHEST 1V AP HISTORY: Weakness, NAUSEA, SOB TECHNIQUE: Frontal portable examination of the chest PRIORS: None FINDINGS: Nonspecific slight elevation of left diaphragm. Atherosclerotic calcification in aorta. Degenerative change in the regional skeleton. No pneumothorax. Cardiac silhouette size slightly enlarged possibly with mild vascular congestion. Bilateral lateral lung base pleural thickening may be scar or small effusions. Slight patchy opacity in lower left lung may be scar, tracking fluid, edema, or pneumonitis. IMPRESSION: Slight cardiomegaly possibly with mild vascular congestion Pleural thickening may be scar or small bilateral pleural effusions Lower left lung opacity may be scar, tracking fluid, or mild edema. Differential includes pneumonitis
--- NOTE | 2017-10-09 15:22 | Cat Scan Report ---
CT chest and abdomen without contrast: Nausea vomiting, confusion. Transverse images are obtained of the low chest to the ischium. Coronal and sagittal reformatted images included. Comparison made to prior exam in August 2016. Patchy opacities are identified at both lung bases with small bilateral effusions. These findings are similar to prior exam. Scattered calcifications are present in the liver and spleen. The splenic length is 12.4 cm and the overall volume appears somewhat increased. No focal lesion noted. Splenic length may be slightly greater than previous study. The pancreatic head is difficult to fully assess but appears grossly normal. The gallbladder has been removed. Extensive vascular calcification is noted in the aorta, mesenteric and pancreatic vasculature. The renal arteries appear generally spared. A small calculus is noted in the inferior right kidney which moved from the superior to the lower pole compared to prior exam. Small calculus is noted in the inferior left kidney. There is no evidence of hydronephrosis and no renal masses. There is a small umbilical hernia containing mesenteric fat. The unopacified small bowel is generally unremarkable. Scattered fecal matter is present throughout the non-distended colon. The rectum however is gaseously distended. The renae-rectal thickening noted on prior examination is less prevalent on the current study. No focal inflammatory changes or abnormal fluid collections are identified. The reproductive organs are been removed. There are no destructive bone lesions noted however the bones are demineralized with diffuse discogenic narrowing at multiple levels with collapse at L4-5. Impressions: 1. Chronic effusion/patchy bibasilar opacities. 2. Evidence of prior granulomatous infection of the liver and spleen. Mild splenic enlargement of the spleen. 3. No evidence of bowel obstruction or inflammation. Gaseous distention of the rectum. 4. Nonobstructing tiny renal calculi.
--- NOTE | 2017-10-09 16:01 | History and Physical Report ---
History of Present Illness Chief complaint: Confusion History of present illness: 71 YO Female with ESRD on HD(M,W,F), CVA, VT, DM, Migraine QUINONEZ, CAD S/P Stent Placement, HTN, Gastroparesis presents to ED for evaluation. Pt is unable to provide detailed history. Pt history provided by EMS, as well as dialysis clinic staff. Pt was in her usual state of health upon waking from sleep this morning. Pt went to her scheduled dialysis appointment. Pt experienced acute onset of confusion, nausea, and vomiting, after dialysis. EMS was notified, and upon arrival the patient was found to be lethargic. Pt transported to [facility] for further evaluation. Pt seen and evaluated in ED and found to have Encephalopathy as well as Dialysis Disequilibrium Syndrome. Pt admitted to medical floor. No reports of fever, chills, CP, palpitations, trauma, BRBPR, unintentional weight loss, night sweats, or recent ill contacts. Past History Past Medical History: acute VT, CAD, diabetes, ESRD, hyperlipidemia, migraines, stroke Past Surgical History: Other (Jeremias Kline) Social history: single Family history: diabetes. denies: hypertension Medications and Allergies Allergies Allergy/AdvReac Type Severity Reaction Status Date / Time No Known Allergies Allergy Verified 06/14/13 10:48 Home Medications Medication Instructions Recorded Confirmed Last Taken Type Clopidogrel [Plavix] 75 mg PO QDAY 04/21/13 08/03/16 10/06/14 08:00 History amLODIPine [Norvasc] 5 mg PO DAILY 04/21/13 08/03/16 10/06/14 08:00 History Labetalol HCl [Trandate TAB] 300 mg PO DAILY 06/03/13 08/03/16 10/06/14 21:00 History Cyanocobalamin (Vitamin B-12) 1,000 mcg PO QDAY 12/09/13 08/03/16 10/06/14 20: 00 History [Vitamin B-12] Escitalopram [Lexapro] 10 mg PO DAILY 03/16/14 08/03/16 09/07/14 History Lisinopril 20 mg PO DAILY 03/16/14 08/03/16 10/06/14 08:00 History Sevelamer Carbonate [Renvela] 1,600 mg PO TIDWM 09/05/14 08/03/16 10/06/14 17: 00 History Famotidine [Pepcid] 20 mg PO BID 09/07/14 08/03/16 10/06/14 17:00 History AtorvaSTATin [Lipitor] 20 mg PO DAILY 09/28/14 08/03/16 10/06/14 20:00 History Renal Cap 1 tab PO DAILY 09/28/14 08/03/16 10/06/14 08:00 History Ferrous Gluconate [Fergon 325 MG 324 mg PO BID 08/03/16 08/03/16 Unknown History tab] Ferrous Gluconate [Fergon 325 MG 324 mg PO BID #60 tablet 08/06/16 Unknown Rx tab] Folic Acid/Vit B Comp W-C [Renal 1 cap PO QDAY capsule 08/06/16 Unknown Rx Caps] levoFLOXacin [Levaquin TAB] 250 mg PO Q24HR #7 tablet 08/06/16 Unknown Rx metroNIDAZOLE [Flagyl TAB] 500 mg PO Q8HR #20 tablet 08/06/16 Unknown Rx traMADol [Ultram 50 MG tab] 50 mg PO Q6HR PRN #30 tablet 08/06/16 Unknown Rx Docusate Sodium [Colace] 100 mg PO BID #60 capsule 08/21/16 Unknown Rx Lactulose [Cephulac] 20 gm PO QDAY PRN #90 ml 08/21/16 Unknown Rx Ondansetron [Zofran Odt] 4 mg PO Q8HR #12 tab.rapdis 08/21/16 Unknown Rx Acetaminophen [Tylenol Arthritis] 650 mg PO Q6HR PRN #30 tablet.er 09/30/17 Unknown Rx Review of Systems ROS unobtainable: due to mental status Exam - Constitutional Vitals: Temp Pulse Resp BP Pulse Ox 98.3 F 71 20 182/62 96 10/09/17 13:26 10/09/17 12:06 10/09/17 12:06 10/09/17 13:01 10/09/17 13:01 General appearance: Present: mild distress, obese - EENT Eyes: Present: PERRL, miosis ENT: hearing intact, clear oral mucosa - Neck Neck: Present: supple, normal ROM - Respiratory Respiratory effort: normal Respiratory: bilateral: CTA - Cardiovascular Heart Sounds: Present: S1 & S2. Absent: rub, click - Extremities Extremities: pulses symmetrical, No edema - Abdominal General gastrointestinal: Present: soft, non-tender, non-distended, normal bowel sounds Female genitourinary: Present: normal - Integumentary Integumentary: Present: clear, warm, dry - Musculoskeletal Musculoskeletal: generalized weakness - Psychiatric Psychiatric: no intact judgment & insight, no memory intact - Neurologic Neurologic: no gait normal Results - Labs CBC & Chem 7: 10/09/17 12:39 10/09/17 12:39 Labs: Abnormal lab results 10/09/17 10/09/17 10/09/17 Range/Units 12:39 12:39 14:09 RBC 3.46 L (3.65-5.03) M/mm3 RDW 15.9 H (13.2-15.2) % [place] % (Auto) 8.4 H (0.0-7.3) % Lymph # 0.7 L (1.2-5.4) K/mm3 Seg Neutrophils % 73.0 H (40.0-70.0) % Sodium 136 L (137-145) mmol/L Chloride 97.9 L (98-107) mmol/L Carbon Dioxide 20 L (22-30) mmol/L BUN 20 H (7-17) mg/dL Creatinine 4.8 H (0.7-1.2) mg/dL Alkaline Phosphatase 261 H (35-129) units/L Troponin T 0.215 H* (0.00-0.029) ng/mL Albumin 3.8 L (3.9-5) g/dL LDL Cholesterol Direct 44 L (50-130) mg/dL HDL Cholesterol 67 H (40-59) mg/dL Salicylates < 0.3 L (2.8-20.0) mg/dL Acetaminophen (10.0-30.0) ug/mL 10/09/17 Range/Units 14:09 RBC (3.65-5.03) M/mm3 RDW (13.2-15.2) % [place] % (Auto) (0.0-7.3) % Lymph # (1.2-5.4) K/mm3 Seg Neutrophils % (40.0-70.0) % Sodium (137-145) mmol/L Chloride (98-107) mmol/L Carbon Dioxide (22-30) mmol/L BUN (7-17) mg/dL Creatinine (0.7-1.2) mg/dL Alkaline Phosphatase (35-129) units/L Troponin T (0.00-0.029) ng/mL Albumin (3.9-5) g/dL LDL Cholesterol Direct (50-130) mg/dL HDL Cholesterol (40-59) mg/dL Salicylates (2.8-20.0) mg/dL Acetaminophen < 5.0 L (10.0-30.0) ug/mL Assessment and Plan - Patient Problems (1) ESRD (end stage renal disease) on dialysis Current Visit: Yes Status: Acute Plan to address problem: Nephrology consulted, avoid nephrotoxic agents, monitor uop q shift, CMP, dialysis as per renal team. (2) Dialysis disequilibrium syndrome Current Visit: Yes Status: Acute Plan to address problem: Nephrology consulted in ED, dialysis as per renal team, supportive care. (3) Diabetes Current Visit: Yes Status: Acute Plan to address problem: ADA diet, insulin, accu check (4) HTN (hypertension) Current Visit: Yes Status: Acute Qualifiers: Hypertension type: essential hypertension Qualified Code(s): I10 - Essential (primary) hypertension Plan to address problem: monitor bp q shift, continue medical management. (5) DVT prophylaxis Current Visit: Yes Status: Acute Plan to address problem: SCD to BLE while in bed.
[2017-10-09] MEDS ORDERED: PROVENTIL IH PRN (16:21)
[2017-10-09] MEDS ORDERED: TYLENOL PO PRN (16:21)
[2017-10-09] MEDS ORDERED: ZOFRAN IV PRN (16:21)
[2017-10-09] MEDS ORDERED: SODIUM CHLORIDE FLUSH SYRINGE 10 ML IV PRN (16:21)
[2017-10-09] MEDS: SODIUM CHLORIDE FLUSH SYRINGE 10 ML IV SCH (22:49)
--- NOTE | 2017-10-10 09:26 | Consultation ---
History of Present Illness - Reason for Consult Consult date: 10/10/17 end stage renal disease - History of Present Illness Mrs. Skinner is a 71yo female with ESRD on HD MWF who presented to the ED from dialysis with intractable nausea/vomiting. Patient intially [place] [facility] [place] However, appx 1.5h into treatment, patient began vomiting, change in mental status noted. Treatment was discontinued. EMS was called and patient was transferred to ED. Presently, she has no complaints. She tolerated po intake this AM. She denies abdominal pain, diarrhea, fever. Past History Past Medical History: acute PA, CAD, diabetes, ESRD, hyperlipidemia, migraines, stroke Past Surgical History: Other (Jeremias Kline) Social history: single Family history: diabetes. denies: hypertension Medications and Allergies Allergies Allergy/AdvReac Type Severity Reaction Status Date / Time No Known Allergies Allergy Verified 06/14/13 10:48 Home Medications Medication Instructions Recorded Confirmed Last Taken Type Clopidogrel [Plavix] 75 mg PO QDAY 04/21/13 10/09/17 10/06/14 08:00 History Cyanocobalamin (Vitamin B-12) 1,000 mcg PO QDAY 12/09/13 10/09/17 10/06/14 20: 00 History [Vitamin B-12] Escitalopram [Lexapro] 10 mg PO DAILY 03/16/14 10/09/17 09/07/14 History Sevelamer Carbonate [Renvela] 800 mg PO TIDWM 09/05/14 10/09/17 10/06/14 17:00 History Famotidine [Pepcid] 20 mg PO BID 09/07/14 10/09/17 10/06/14 17:00 History AtorvaSTATin [Lipitor] 20 mg PO DAILY 09/28/14 10/09/17 10/06/14 20:00 History Acetaminophen [Tylenol Arthritis] 650 mg PO Q6HR PRN #30 tablet.er 09/30/17 Unknown Rx B Complex 11/Folic/C/Biot/Zinc 1 each PO DAILY 10/09/17 10/09/17 Unknown History [Dialyvite with Zinc Tablet] Cinacalcet [Sensipar] 30 mg PO HS 10/09/17 10/09/17 Unknown History Ergocalciferol [Vitamin D2] 1 cap PO QWEEK 10/09/17 10/09/17 Unknown History HYDROcodone/APAP 7.5-325 [[place] 1 each PO Q6HR PRN 10/09/17 10/09/17 Unknown History 7.5/325] Lisinopril [Zestril] 10 mg PO QDAY 10/09/17 10/09/17 Unknown History Nephrocaps Softgel 1 each PO DAILY 10/09/17 10/09/17 Unknown History Ondansetron [Zofran TAB] 4 mg PO Q6H PRN 10/09/17 10/09/17 Unknown History Polyethylene Glycol 3350 17 gm PO PRN PRN 10/09/17 10/09/17 Unknown History [Smoothlax] traMADol [Ultram 50 MG tab] 50 mg PO Q4H PRN 10/09/17 10/09/17 Unknown History Active Meds: Active Medications Acetaminophen (Tylenol) 650 mg PO Q4H PRN PRN Reason: Pain MILD(1-3)/Fever >100.5/QUINONEZ Albuterol (Proventil) 2.5 mg IH Q4HRT PRN PRN Reason: Shortness Of Breath Ondansetron HCl (Zofran) 4 mg IV Q8H PRN PRN Reason: Nausea And Vomiting Sodium Chloride (Sodium Chloride Flush Syringe 10 Ml) 10 ml IV BID ANNI Last Admin: 10/09/17 22:49 Dose: 10 ml Sodium Chloride (Sodium Chloride Flush Syringe 10 Ml) 10 ml IV PRN PRN PRN Reason: LINE FLUSH Exam - Vital Signs Vital signs: Vital Signs Temp Pulse Resp BP Pulse Ox 98.6 F 71 20 185/54 97 10/09/17 12:06 10/09/17 12:06 10/09/17 12:06 10/09/17 12:06 10/09/17 12:06 - General Appearance General appearance: well-developed, well-nourished EENT: ATNC Respiratory: Decreased Breath Sounds Heart: regular, S1S2 Gastrointestinal: Present: normal. Absent: tenderness, distended Integumentary: warm and dry Neurologic: other (alert, oriented) Musculoskeletal: Present: other (no edema to LLE) Psychiatric: cooperative Results - Lab Results 10/09/17 12:39 10/09/17 12:39 Most recent lab results Calcium 8.9 mg/dL (8.4-10.2) 10/09/17 12:39 Magnesium 2.00 mg/dL (1.7-2.3) 10/09/17 12:39 Assessment and Plan Impression: * End stage renal disease * Nausea/vomiting - resolved * Type II DM * Hypertension * Anemia secondary to ESRD * Secondary hyperparathyroidism Plan: * Hemodialysis today as patient only completed a partial treatment yesterday- UF as tolerated * Resume MWF schedule tomorrow * Symptomatic management * Renal diet * Epogen TIW prn * Stable for d/c from a renal standpoint after HD today
[2017-10-10] MEDS: SODIUM CHLORIDE FLUSH SYRINGE 10 ML IV SCH ×2 (09:47→22:26)
[2017-10-10] MEDS ORDERED: ZOFRAN PO PRN (09:53)
[2017-10-10] MEDS ORDERED: NON-FORMULARY (Acetaminophen [Tylenol Arthritis] 650 MG) PO PRN (09:53)
[2017-10-10] MEDS ORDERED: MIRALAX 3350 PO PRN ×2 (09:53→11:41)
[2017-10-10] MEDS ORDERED: NORCO 7.5/325 PO PRN (09:53)
--- NOTE | 2017-10-10 09:53 | Progress Note ---
Assessment and Plan /Delirium - likely from dehydration, mental status at baseline now /End stage renal disease - HD per renal /Nausea/vomiting [place] viral gastroenteritis- resolved /Type II DM - SSI as needed /Hypertension, cont to monitor BP /Anemia secondary to ESRD - stable H and h Radiological study; CT head brain: Left encephalomalacia consistent with prior infarction. No acute findings. CT abdomen/pelvis: 1. Chronic effusion/patchy bibasilar opacities. 2. Evidence of prior granulomatous infection of the liver and spleen. Mild splenic enlargement of the spleen. 3. No evidence of bowel obstruction or inflammation. Gaseous distention of the rectum. 4. Nonobstructing tiny renal calculi. CXR: Slight cardiomegaly possibly with mild vascular congestion. Pleural thickening may be scar or small bilateral pleural effusions. Lower left lung opacity may be scar, tracking fluid, or mild edema. Differential includes pneumonitis Subjective Date of service: 10/10/17 Interval history: Pt seen and examined at HD denies any chest pain SOB, no further N/V appears lethargic Objective - Constitutional Vitals: Vital Signs - 12hr 10/09/17 10/09/17 10/09/17 22:00 22:01 22:11 Temperature Pulse Rate 66 79 77 Respiratory 17 16 Rate Respiratory 18 Rate [denies pain] Blood Pressure 128/76 128/76 O2 Sat by Pulse Oximetry 10/10/17 10/10/17 10/10/17 00:27 00:31 02:15 Temperature 98.4 F Pulse Rate 100 H 68 Respiratory 17 16 Rate Respiratory Rate [denies pain] Blood Pressure 161/54 O2 Sat by Pulse 100 97 95 Oximetry 10/10/17 07:38 Temperature 98.5 F Pulse Rate 68 Respiratory 20 Rate Respiratory Rate [denies pain] Blood Pressure 183/58 O2 Sat by Pulse 95 Oximetry General appearance: Present: no acute distress, well-nourished - EENT Eyes: PERRL, EOM intact ENT: hearing intact, clear oral mucosa Ears: bilateral: normal - Neck Neck: supple, normal ROM - Respiratory Respiratory effort: normal Respiratory: bilateral: CTA - Cardiovascular Rhythm: regular Heart Sounds: Present: S1 & S2. Absent: gallop, rub Extremities: pulses intact, No edema, Full ROM - Gastrointestinal General gastrointestinal: Present: soft, non-tender, non-distended, normal bowel sounds - Integumentary Integumentary: clear, warm, dry - Musculoskeletal Musculoskeletal: other (right AKA) - Neurologic Neurologic: moves all extremities - Psychiatric Psychiatric: cooperative - Labs CBC & Chem 7: 10/10/17 18:13 10/10/17 18:13 Labs: Abnormal lab results 10/09/17 10/09/17 10/09/17 Range/Units 12:39 12:39 14:09 RBC 3.46 L (3.65-5.03) M/mm3 RDW 15.9 H (13.2-15.2) % [place] % (Auto) 8.4 H (0.0-7.3) % Lymph # 0.7 L (1.2-5.4) K/mm3 Seg Neutrophils % 73.0 H (40.0-70.0) % Sodium 136 L (137-145) mmol/L Chloride 97.9 L (98-107) mmol/L Carbon Dioxide 20 L (22-30) mmol/L BUN 20 H (7-17) mg/dL Creatinine 4.8 H (0.7-1.2) mg/dL Alkaline Phosphatase 261 H (35-129) units/L Troponin T 0.215 H* (0.00-0.029) ng/mL Albumin 3.8 L (3.9-5) g/dL LDL Cholesterol Direct 44 L (50-130) mg/dL HDL Cholesterol 67 H (40-59) mg/dL Salicylates < 0.3 L (2.8-20.0) mg/dL Acetaminophen (10.0-30.0) ug/mL 10/09/17 Range/Units 14:09 RBC (3.65-5.03) M/mm3 RDW (13.2-15.2) % [place] % (Auto) (0.0-7.3) % Lymph # (1.2-5.4) K/mm3 Seg Neutrophils % (40.0-70.0) % Sodium (137-145) mmol/L Chloride (98-107) mmol/L Carbon Dioxide (22-30) mmol/L BUN (7-17) mg/dL Creatinine (0.7-1.2) mg/dL Alkaline Phosphatase (35-129) units/L Troponin T (0.00-0.029) ng/mL Albumin (3.9-5) g/dL LDL Cholesterol Direct (50-130) mg/dL HDL Cholesterol (40-59) mg/dL Salicylates (2.8-20.0) mg/dL Acetaminophen < 5.0 L (10.0-30.0) ug/mL
[2017-10-10] MEDS ORDERED: NACL 0.9% 100 ML IV PRN (09:57)
[2017-10-10] MEDS ORDERED: NON-FORMULARY (Cyanocobalamin (Vitamin B-12) [Vitamin B-12] 1,000 MCG) PO SCH (10:00)
[2017-10-10] MEDS ORDERED: NON-FORMULARY (B Complex 11/Folic/C/Biot/Zinc [Dialyvite With Zinc Tablet] 1 EACH) PO SCH (10:00)
[2017-10-10] MEDS ORDERED: NEPHROCAPS PO SCH (10:00)
[2017-10-10] MEDS ORDERED: VANCOMYCIN 1,750 MG in NACL 0.9% 500 ML 500 ML IV ONE (12:30)
[2017-10-10] MEDS ORDERED: VANCOMYCIN/NS 1 GM/250 ML 1 GM/250 ML BAG IV SCH (13:00)
[2017-10-10] MEDS: Renal Caps PO SCH (15:33)
[2017-10-10] MEDS: APRESOLINE PO SCH ×2 (15:33→22:26)
[2017-10-10] MEDS: PLAVIX PO SCH (15:33)
[2017-10-10] MEDS: RENVELA PO SCH ×2 (15:34→17:15)
[2017-10-10] MEDS: PEPCID PO SCH (15:34)
[2017-10-10] MEDS: LEXAPRO PO SCH (15:34)
[2017-10-10] MEDS ORDERED: NACL 0.9 (PRIMING MACHINE ONLY DIALYSIS) MC ONE (16:14)
[2017-10-10 19:01] LABS: Hematocrit 31.4 % (30.3-42.9); Hemoglobin 10.8 gm/dl (10.1-14.3); Mean Corpuscular HGB Conc 35 % (30-34); Mean Corpuscular Hemoglobin 32 pg (28-32); Mean Corpuscular Volume 93 fl (79-97); Platelet Count 152 K/mm3 (140-440); Red Blood Count 3.38 M/mm3 (3.65-5.03); Red Cell Distribution Width 15.9 % (13.2-15.2)
[2017-10-10 19:22] LABS: Calcium 8.5 mg/dL (8.4-10.2)
[2017-10-10] MEDS ORDERED: LOVENOX SUB-Q SCH ×2 (22:00)
[2017-10-10] MEDS ORDERED: SENSIPAR PO SCH (22:00)
[2017-10-11] MEDS: APRESOLINE PO SCH ×3 (05:24→14:05)
[2017-10-11] MEDS ORDERED: APRESOLINE PO SCH (07:38)
[2017-10-11] MEDS ORDERED: ALBURX 25% (ALBUMIN) IV PRN (07:45)
[2017-10-11] MEDS ORDERED: HEPARIN 10,000 UNITS/10 ML IV PRN (07:45)
[2017-10-11] MEDS ORDERED: NACL 0.9% 100 ML IV PRN (07:45)
--- NOTE | 2017-10-11 07:45 | Progress Note ---
Assessment and Plan Impression: * End stage renal disease * Nausea/vomiting - resolved * Type II DM * Hypertension * Anemia secondary to ESRD * Secondary hyperparathyroidism Plan: * Patient is s/p partial treatment yesterday * Resume MWF schedule today - UF as tolerated * Symptomatic management * Renal diet * Epogen TIW prn * Stable for d/c from a renal standpoint after HD today Subjective Date of service: 10/11/17 Interval history: Patient has no complaints today. Eating breakfast. Objective - Vital Signs Vital signs: Vital Signs - 12hr 10/10/17 10/10/17 10/11/17 20:42 22:00 02:54 Temperature 98.7 F 99.0 F Pulse Rate 70 72 Respiratory 20 20 20 Rate Respiratory Rate [Right Arm ] Blood Pressure 175/55 181/56 O2 Sat by Pulse 94 96 Oximetry 10/11/17 10/11/17 10/11/17 04:29 05:24 05:25 Temperature Pulse Rate 73 Respiratory 0 L Rate Respiratory 20 Rate [Right Arm ] Blood Pressure O2 Sat by Pulse Oximetry 10/11/17 06:24 Temperature Pulse Rate Respiratory 20 Rate Respiratory Rate [Right Arm ] Blood Pressure O2 Sat by Pulse Oximetry - General Appearance General appearance: well-developed, well-nourished Respiratory: Present: Clear to Ascultation Cardiology: regular, S1S2 Gastrointestinal: normal, no tenderness, no distended Integumentary: no rash, warm and dry Musculoskeletal: other (no edema) Psychiatric: cooperative - Lab 10/10/17 18:13 10/10/17 18:13 Most recent lab results Calcium 8.5 mg/dL (8.4-10.2) 10/10/17 18:13 Magnesium 2.00 mg/dL (1.7-2.3) 10/09/17 12:39
[2017-10-11] MEDS: LEXAPRO PO SCH ×2 (08:35→10:00)
[2017-10-11] MEDS: PLAVIX PO SCH ×2 (08:35→10:00)
[2017-10-11] MEDS: RENVELA PO SCH ×3 (08:35→16:58)
[2017-10-11] MEDS: VITAMIN B-12 PO SCH ×2 (08:35→10:00)
[2017-10-11] MEDS: Renal Caps PO SCH ×2 (08:35→10:00)
[2017-10-11] MEDS: SODIUM CHLORIDE FLUSH SYRINGE 10 ML IV SCH ×2 (08:36→10:00)
[2017-10-11] MEDS: ALLBEE WITH C PO SCH ×2 (08:36→10:00)
[2017-10-11] MEDS: PEPCID PO SCH ×2 (08:36→10:00)
[2017-10-11] MEDS ORDERED: NORVASC PO SCH (10:00)
--- NOTE | 2017-10-11 13:56 | Discharge Summary ---
Providers - Providers Date of Admission: 10/09/17 16:21 Attending physician: GUERA MIKE 10/09/17 Consult to Physician [CONS] Stat Comment: CHET NOTIFIED 1400 Consulting Provider: MICHELA JONES Physician Instructions: Reason For Exam: Weakness Primary care physician: SODA FOUNTAIN MANAGER Hospitalization Condition: Fair Hospital course: Mrs. Skinner is a 71yo female with ESRD on HD MWF who presented to the ED from dialysis with intractable nausea/vomiting. [place] [facility] [place], appx 1.5h into treatment, patient began vomiting, change in mental status noted. Treatment was discontinued. EMS was called and patient was transferred to ED. Discharge diagnosis: /Delirium - likely from dehydration, mental status at baseline now /End stage renal disease - HD per renal /Nausea/vomiting [place] viral gastroenteritis- resolved /Type II DM - SSI as needed /Hypertension, cont to monitor BP /Anemia secondary to ESRD - stable H and h Radiological study; CT head brain: Left encephalomalacia consistent with prior infarction. No acute findings. CT abdomen/pelvis: 1. Chronic effusion/patchy bibasilar opacities. 2. Evidence of prior granulomatous infection of the liver and spleen. Mild splenic enlargement of the spleen. 3. No evidence of bowel obstruction or inflammation. Gaseous distention of the rectum. 4. Nonobstructing tiny renal calculi. CXR: Slight cardiomegaly possibly with mild vascular congestion. Pleural thickening may be scar or small bilateral pleural effusions. Lower left lung opacity may be scar, tracking fluid, or mild edema. Differential includes pneumonitis Physical exam; General appearance: Present: no acute distress, well-nourished - EENT Eyes: PERRL, EOM intact ENT: hearing intact, clear oral mucosa Ears: bilateral: normal - Neck Neck: supple, normal ROM - Respiratory Respiratory effort: normal Respiratory: bilateral: CTA - Cardiovascular Rhythm: regular Heart Sounds: Present: S1 & S2. Absent: gallop, rub Extremities: pulses intact, No edema, Full ROM - Gastrointestinal General gastrointestinal: Present: soft, non-tender, non-distended, normal bowel sounds - Integumentary Integumentary: clear, warm, dry - Musculoskeletal Musculoskeletal: other (right AKA) - Neurologic Neurologic: moves all extremities - Psychiatric Psychiatric: cooperative Disposition: DC/TX-06 HOME UNDER HOME [facility] Time spent for discharge: 34 minutes Exam - Constitutional Vitals: Temp Pulse Resp BP Pulse Ox 98.4 F 67 18 121/53 93 10/11/17 09:28 10/11/17 13:00 10/11/17 09:28 10/11/17 13:00 10/11/17 07:41 Plan Activity: up only with assistance Weight Bearing Status: Non-Weight Bearing Diet: renal Follow up with: PRIMARY CARE, [Primary Care Provider] - 3-5 Days Prescriptions: amLODIPine [Norvasc] 10 mg PO QDAY #30 tablet
[2017-10-11 16:05] VITALS: BP 164/61
--- NOTE | 2017-10-14 15:13 | Query-Infection ---
"Vivi Ernandez___Ayan Date:__10/14/2017 Jewelry Engraver/CDS:__Krystina/Kristen Phone#:_[phone] Exercise your independent professional judgment when responding to this query. Questions asked do not imply a particular answer is desired or expected. We greatly appreciate your clarification on this issue. Clinical Documentation States: 72 Year old female was admitted on 10/09/2017 for acute onset of confusion, nausea, and vomiting, after dialysis. EMS was notified, and upon arrival the patient was found to be lethargic. Pt transported to [facility] for further evaluation. Pt seen and evaluated in ED and found to have Encephalopathy as well as Dialysis Disequilibrium Syndrome. Clinical findings show: (please check applicable parameters) WBC (10/10): 3.9 Temp (10/10): 100.3 [place] (10/10): 100 RR (10/09): 25 Infection, known /suspected, with some of the following indicators; Specify the infection: 3 General parameters [ ] Fever (core temp >38.30C or 100.40F) [ ] Hypothermia (core temp <36C) [X] Heart rate >90 bpm [X] Tachypnea: >20 bpm or pCO2 < 32 mmHg [X] Altered mental status [ ] Significant edema / +ve fluid balance (>20 ml/kg 24 h) [ ] Hyperglycemia (Bl. glucose >110 mg/dl) w/o diabetes Inflammatory parameters [ ] Leukocytosis (white blood cell count >12,000/l) [X] Leukopenia (white blood cell count <4,000/l) [ ] Bandemia (immature WBC > 10%) [ ] Leucocyte Left Shift [ ] Plasma procalcitonin>2 SD above the normal value Hemodynamic and tissue perfusion parameters [ ] Arterial hypotension(SBP <90 mmHg, MAP <70 mmHg,or a SBP drop >40 mmHg in adults) [ ] Hyperlactatemia (>3 mmol/l) [ ] Anion Gap (> 11mEG/l) [ ] Decreased capillary refill or mottling Organ dysfunction parameters [ ] Arterial hypoxemia (PaO2/FIO2 <300) [ ] Creatinine increase =0.5 mg/dl [ ] Acute oliguria (urine output <0.5 ml | kg |h or 45 mM/l for at least 2 hrs) [ ] Coagulation abnormalities (INR >1.5 or activated partial thromboplastin time >60 s) [ ] Ileus (absent cordell wel sounds) [ ] Thrombocytopenia (platelet count <100,000/l) [ ] Hyperbilirubinemia (plasma total bilirubin >4 mg/dl) According to the clinical indications above, can Bacteremia be further specified? If so, please indicate below and in your Progress Notes and/ or Discharge Summary. Indicate if the condition was present on admission. PHYSICIAN RESPONSE: [ ] Sepsis [ ] Severe Sepsis [ ] Septic Shock [ ] Septicemia [ ] Sepsis now resolved [ x] SIRS due to non-infectious cause with organ dysfunction [ ] SIRS due to non-infectious cause without organ dysfunction [ ] Other: [ ] Comment/Explanation: Present on Admission: [x ] Yes (Y) [ ] Clinically undeterminable (W) [ ] No (N) [ ] Ruled Out Please also document response in your Progress Notes and/or Discharge Summary and indicate if the condition was present on admission Notes: SIRS/ SIRS WITH ORGAN DYSFUNCTION Systemic inflammatory response syndrome (SIRS) generally refers to the systemic response to trauma/means or other insult such as Acute Myocardial Infarction, Acute Pancreatitis, and Major Surgery with symptoms including fever, tachycardia , tachypnea, and leukocytosis (1). BACTEREMIA Presence of viable bacteria in the circulating blood (2). This term is reserved for patients that do not manifest above SIRS response. SEPTICEMIA Generally refers to a systemic disease associated with the presence of pathological microorganisms or toxins in the blood, which can include bacteria, viruses, fungi or other organisms (1). SEPSIS Generally refers to SIRS due infection (1). SEVERE SEPSIS Generally refers to sepsis associated with acute organ dysfunction (1). SEPTIC SHOCK Generally refers to circulatory failure associated with severe sepsis (2), and defined as hypotension or hypoperfusion despite adequate fluid resuscitation (1 hour) (3). REFERENCES: 1. [place] [employer]/Society of Critical Care Medicine Consensus Conference. Definitions for sepsis and organ failure and guidelines for the use of innovative therapies in sepsis. Critical Care Med 1992;20:864 - 74. 2. Constantine y MM, Mahsa MP, Corey LINDSAY, Memo E, Goran D, Lit D, Gómez J, [place] SM , Justen JL, Carolee G; International Sepsis Definitions Conference. 2001 SCCM/ESICM/ACCP/ATS/SIS International Sepsis Definitions Conference. Intensive Care Med. 2002;29(4):530-8. Epub 2002May 15. Review. PubMed PMID:[id number] 3. ICD-9-CM Official Guidelines for Coding and Reporting 4. Medscape Drugs, Diseases and Procedures references 5. [employer] Textbook of Internal Medicine. 18th Edition MTDD"
[2017-10-17] MEDS ORDERED: VITAMIN D2 PO SCH (10:00)
== END 2017-10-11 19:30 | disposition home health service (06) | DRG 391 ==
LOC: ED 11:44 → 2B-ACE 16:21
PROVIDERS: ADMIT Internal Medicine; ATTEND Internal Medicine
PROC: 5A1D70Z Performance of Urinary Filtration, Intermittent, Less than 6 Hours Per Day (ICD-10-PCS; principal; 2017-10-10)
PROC: 5A1D70Z Performance of Urinary Filtration, Intermittent, Less than 6 Hours Per Day (ICD-10-PCS; 2017-10-11)
DX: A08.4 Viral intestinal infection, unspecified (principal); N18.6 End stage renal disease; N25.81 Secondary hyperparathyroidism of renal origin; I12.0 Hypertensive chronic kidney disease with stage 5 chronic kidney disease or end stage renal disease; E87.8 Other disorders of electrolyte and fluid balance, not elsewhere classified; R41.0 Disorientation, unspecified; E86.0 Dehydration; I25.10 Atherosclerotic heart disease of native coronary artery without angina pectoris; G43.909 Migraine, unspecified, not intractable, without status migrainosus; D63.1 Anemia in chronic kidney disease; E11.22 Type 2 diabetes mellitus with diabetic chronic kidney disease; I25.2 Old myocardial infarction; Z89.611 Acquired absence of right leg above knee; Z83.3 Family history of diabetes mellitus; Z79.899 Other long term (current) drug therapy; Z95.5 Presence of coronary angioplasty implant and graft; I69.398 Other sequelae of cerebral infarction; G93.89 Other specified disorders of brain
CPT/HCPCS: 36415; 51701; 70450; 71045; 74176; 80048; 80053; 80061; 80320; 82140; 82550; 82962; 83735; 84443; 84484; 85025; 85027; 85610; 87040; 93005; 93010; A9270-GY; G0480; J1650; J2405; J3370; J7030; J7040

== ENCOUNTER 2018-04-18 06:00 | Inpatient (IN) | payer MEDICARE, OTHER ==
[2018-04-18] MEDS ORDERED: NITRO-BID 2% TP ONE (06:40)
[2018-04-18 07:12] LABS: Basophils % (Auto) 0.5 % (0.0-1.8); Eosinophils # (Auto) 0.2 K/mm3 (0.0-0.4); Eosinophils % (Auto) 4.5 % (0.0-4.3); Hematocrit 36.8 % (30.3-42.9); Hemoglobin 12.4 gm/dl (10.1-14.3); Lymphocytes # (Auto) 1.3 K/mm3 (1.2-5.4); Lymphocytes % (Auto) 28.8 % (13.4-35.0); Mean Corpuscular HGB Conc 34 % (30-34); Mean Corpuscular Volume 94 fl (79-97); Monocytes # (Auto) 0.4 K/mm3 (0.0-0.8); Platelet Count 134 K/mm3 (140-440); Red Blood Count 3.92 M/mm3 (3.65-5.03); Red Cell Distribution Width 17.4 % (13.2-15.2)
--- NOTE | 2018-04-18 07:14 | XRay Report ---
PROCEDURE: XR CHEST 1V AP TECHNIQUE: A portable upright view the chest was obtained. HISTORY: Shortness of breath COMPARISONS: None FINDINGS: The heart size is at the upper limits of normal. The lungs are not overtly congested. There is inters titial prominence in both lungs which may be on a chronic basis. There are no localizable infiltrates or effusions. The skeletal structures revealed generalized osteoporosis with a dextroscoliosis of th e dorsal spine. IMPRESSION: Chronic lung changes. No acute process in the chest.. This document is electronically signed by Shahzad Kirkland MD., April 18 2018 07:12:17 AM ET
[2018-04-18 07:22] LABS: INR 0.98 (0.87-1.13); Partial Thromboplastin Time 24.7 Sec. (24.2-36.6)
[2018-04-18 07:28] LABS: Calcium 9.3 mg/dL (8.4-10.2)
[2018-04-18 07:28] LABS: Creatine Kinase MB 2.7 ng/mL (0.0-4.0)
[2018-04-18 07:30] LABS: Alanine Aminotransferase 6 units/L (7-56); Albumin 3.8 g/dL (3.9-5)
[2018-04-18 07:59] LABS: Bilirubin,Direct < 0.2 mg/dL (0-0.2)
--- NOTE | 2018-04-18 08:17 | Emergency Department Report ---
ED General Adult HPI - General Chief complaint: Upper Respiratory Infection Stated complaint: DIFFICULTY IN BREATHING Time Seen by Provider: 04/18/18 06:28 Source: patient, EMS Mode of arrival: Stretcher Limitations: Physical Limitation - History of Present Illness Initial comments: This is a 72-year-old female who has been coughing for the past few weeks. She went to her primary care physician. According to a family member that there was "a little something" on a chest x-ray resulting in a prescription for doxycycline. The patient continues. She does not complain of chest pain. There is been no documented fever. She does not complain of chills. Today is her dialysis day. She is a rather poor historian. She knows that she is in the hospital today but doesn't know why she came. The family member also is a poor historian. -: week(s) Consistency: intermittent Improves with: none Worsens with: none Associated Symptoms: denies other symptoms - Related Data Home Medications Medication Instructions Recorded Confirmed Last Taken Clopidogrel [Plavix] 75 mg PO QDAY 04/21/13 10/25/17 10/06/14 08:00 Cyanocobalamin (Vitamin B-12) 1,000 mcg PO QDAY 12/09/13 10/25/17 10/06/14 20:00 [Vitamin B-12] Escitalopram [Lexapro] 10 mg PO DAILY 03/16/14 10/25/17 09/07/14 Sevelamer Carbonate [Renvela] 800 mg PO TIDWM 09/05/14 10/25/17 10/06/14 17:00 Famotidine [Pepcid] 20 mg PO BID 09/07/14 10/25/17 10/06/14 17:00 AtorvaSTATin [Lipitor] 20 mg PO DAILY 09/28/14 10/25/17 10/06/14 20:00 B Complex 11/Folic/C/Biot/Zinc 1 each PO DAILY 10/09/17 10/25/17 Unknown [Dialyvite with Zinc Tablet] Cinacalcet [Sensipar] 30 mg PO HS 10/09/17 10/25/17 Unknown Ergocalciferol [Vitamin D2] 1 cap PO QWEEK 10/09/17 10/25/17 Unknown HYDROcodone/APAP 7.5-325 [[place] 1 each PO Q6HR PRN 10/09/17 10/25/17 Unknown 7.5-325 mg TAB] Nephrocaps Softgel 1 each PO DAILY 10/09/17 10/25/17 Unknown Ondansetron [Zofran TAB] 4 mg PO Q6H PRN 10/09/17 10/25/17 Unknown Polyethylene Glycol 3350 17 gm PO PRN PRN 10/09/17 10/25/17 Unknown [Smoothlax] Previous Rx's Medication Instructions Recorded Last Taken Type Acetaminophen [Tylenol Arthritis] 650 mg PO Q6HR PRN #30 tablet.er 09/30/17 Unknown Rx amLODIPine [Norvasc] 10 mg PO QDAY #30 tablet 10/11/17 Unknown Rx cephALEXin [Keflex] 500 mg PO Q12HR #14 cap 10/28/17 Unknown Rx Allergies Allergy/AdvReac Type Severity Reaction Status Date / Time No Known Allergies Allergy Verified 06/14/13 10:48 ED Review of Systems ROS: Stated complaint: DIFFICULTY IN BREATHING Other details as noted in HPI Comment: All other systems reviewed and negative (patient is however a poor historian) ED Past Medical Hx - Past Medical History Hx Hypertension: Yes Hx CVA: Yes Hx Heart Attack/AMI: Yes Hx Congestive Heart Failure: No Hx Diabetes: Yes (NIDDM, not currently on medication) Hx Deep Vein Thrombosis: No Hx Pulmonary Embolism: No Hx GERD: No Hx Liver Disease: No Hx Renal Disease: Yes (ESRD) Hx Sickle Cell Disease: No Hx Arthritis: No Hx Headaches / Migraines: Yes Hx Seizures: No Hx Kidney Stones: No Hx Psychiatric Treatment: No Hx Asthma: No Hx COPD: No Hx Tuberculosis: No Hx Dementia: No Hx HIV: No Additional medical history: gastroparesis - Surgical History Past Surgical History?: Yes Hx Coronary Stent: Yes Hx Open Heart Surgery: No Hx Pacemaker: No Hx Internal Defibrillator: No Hx Cholecystectomy: No Hx Appendectomy: No Hx Breast Surgery: No Additional Surgical History: Right AKA - Social History Smoking Status: Former Smoker Substance Use Type: Alcohol - Medications Home Medications: Home Medications Medication Instructions Recorded Confirmed Last Taken Type Clopidogrel [Plavix] 75 mg PO QDAY 04/21/13 10/25/17 10/06/14 08:00 History Cyanocobalamin (Vitamin B-12) 1,000 mcg PO QDAY 12/09/13 10/25/1715 20:00 History [Vitamin B-12] Escitalopram [Lexapro] 10 mg PO DAILY 03/16/14 10/25/17 09/07/14 History Sevelamer Carbonate [Renvela] 800 mg PO TIDWM 09/05/14 10/25/17 10/06/14 17:00 History Famotidine [Pepcid] 20 mg PO BID 09/07/14 10/25/17 10/06/14 17:00 History AtorvaSTATin [Lipitor] 20 mg PO DAILY 09/28/14 10/25/17 10/06/14 20:00 History Acetaminophen [Tylenol Arthritis] 650 mg PO Q6HR PRN #30 tablet.er 09/30/17 10/25/17 Unknown Rx B Complex 11/Folic/C/Biot/Zinc 1 each PO DAILY 10/09/17 10/25/17 Unknown History [Dialyvite with Zinc Tablet] Cinacalcet [Sensipar] 30 mg PO HS 10/09/17 10/25/17 Unknown History Ergocalciferol [Vitamin D2] 1 cap PO QWEEK 10/09/17 10/25/17 Unknown History HYDROcodone/APAP 7.5-325 [[place] 1 each PO Q6HR PRN 10/09/17 10/25/17 Unknown History 7.5-325 mg TAB] Nephrocaps Softgel 1 each PO DAILY 10/09/17 10/25/17 Unknown History Ondansetron [Zofran TAB] 4 mg PO Q6H PRN 10/09/17 10/25/17 Unknown History Polyethylene Glycol 3350 17 gm PO PRN PRN 10/09/17 10/25/17 Unknown History [Smoothlax] amLODIPine [Norvasc] 10 mg PO QDAY #30 tablet 10/11/17 10/25/17 Unknown Rx cephALEXin [Keflex] 500 mg PO Q12HR #14 cap 10/28/17 Unknown Rx ED Physical Exam - General Limitations: Physical Limitation General appearance: other (somewhat chronically ill-appearing) - Head Head exam: Present: atraumatic, normocephalic - Eye Eye exam: Present: normal appearance. Absent: scleral icterus - ENT ENT exam: Present: mucous membranes moist - Neck Neck exam: Present: normal inspection - Respiratory Respiratory exam: Present: normal lung sounds bilaterally. Absent: respiratory distress - Cardiovascular Cardiovascular Exam: Present: regular rate, normal rhythm. Absent: systolic murmur, diastolic murmur, rubs, gallop - GI/Abdominal GI/Abdominal exam: Present: soft, normal bowel sounds. Absent: distended, tenderness, guarding, rebound, rigid - Extremities Exam Extremities exam: Present: other (right AKA). Absent: pedal edema, calf tenderness - Back Exam Back exam: Present: normal inspection - Neurological Exam Neurological exam: Present: alert, oriented X3, CN II-XII intact. Absent: motor sensory deficit - Psychiatric Psychiatric exam: Present: normal affect, normal mood - Skin Skin exam: Present: warm, dry, intact, normal color. Absent: rash ED Course Vital Signs 04/18/18 04/18/18 04/18/18 06:06 06:15 06:36 Temperature 98.4 F 98.4 F Pulse Rate 88 80 Respiratory 18 15 16 Rate Blood Pressure 179/61 Blood Pressure 224/73 [Left] O2 Sat by Pulse 100 95 96 Oximetry 04/18/18 07:08 Temperature Pulse Rate 74 Respiratory Rate Blood Pressure 182/59 Blood Pressure [Left] O2 Sat by Pulse Oximetry - Reevaluation(s) Reevaluation #1: Patient with a potassium 5.5 and poorly controlled hypertension. She will be a dmitted for further management by the hospitalist service. Nephrology paged. I don't think she needs acute chemical reduction of this potassium at this time. Dialysis would be preferred. 04/18/18 08:22 ED Medical Decision Making - Lab Data Result diagrams: 04/18/18 06:39 04/18/18 06:39 Laboratory Results - last 24 hr 04/18/18 04/18/18 04/18/18 06:39 06:39 06:49 WBC 4.6 RBC 3.92 Hgb 12.4 Hct 36.8 MCV 94 MCH 32 MCHC 34 RDW 17.4 H Plt Count 134 L Lymph % (Auto) 28.8 [place] % (Auto) 9.0 H Eos % (Auto) 4.5 H Baso % (Auto) 0.5 Lymph # 1.3 [place] # 0.4 Eos # 0.2 Baso # 0.0 Seg Neutrophils % 57.2 Seg Neutrophils # 2.6 PT 13.6 INR 0.98 APTT 24.7 Sodium 135 L Potassium 5.5 H Chloride 96.1 L Carbon Dioxide 22 Anion Gap 22 BUN 52 H Creatinine 7.4 H Estimated GFR 7 BUN/Creatinine Ratio 7 Glucose 88 POC Glucose Lactic Acid Calcium 9.3 Phosphorus Magnesium Total Bilirubin Direct Bilirubin Indirect Bilirubin AST ALT Alkaline Phosphatase Total Creatine Kinase CK-MB (CK-2) CK-MB (CK-2) Rel Index Troponin T Total Protein Albumin Albumin/Globulin Ratio 04/18/18 04/18/18 04/18/18 06:49 06:49 06:49 WBC RBC Hgb Hct MCV MCH MCHC RDW Plt Count Lymph % (Auto) [place] % (Auto) Eos % (Auto) Baso % (Auto) Lymph # [place] # Eos # Baso # Seg Neutrophils % Seg Neutrophils # PT INR APTT Sodium Potassium Chloride Carbon Dioxide Anion Gap BUN Creatinine Estimated GFR BUN/Creatinine Ratio Glucose POC Glucose Lactic Acid 0.80 Calcium Phosphorus Magnesium 2.10 Total Bilirubin 0.30 Direct Bilirubin < 0.2 Indirect Bilirubin 0.1 AST 9 ALT 6 L Alkaline Phosphatase 185 H Total Creatine Kinase 77 CK-MB (CK-2) 2.7 CK-MB (CK-2) Rel Index 3.5 Troponin T 0.182 H* Total Protein 6.9 Albumin 3.8 L Albumin/Globulin Ratio 1.2 04/18/18 04/18/18 06:49 07:06 WBC RBC Hgb Hct MCV MCH MCHC RDW Plt Count Lymph % (Auto) [place] % (Auto) Eos % (Auto) Baso % (Auto) Lymph # [place] # Eos # Baso # Seg Neutrophils % Seg Neutrophils # PT INR APTT Sodium Potassium Chloride Carbon Dioxide Anion Gap BUN Creatinine Estimated GFR BUN/Creatinine Ratio Glucose POC Glucose 82 Lactic Acid Calcium Phosphorus 6.30 H Magnesium Total Bilirubin Direct Bilirubin Indirect Bilirubin AST ALT Alkaline Phosphatase Total Creatine Kinase CK-MB (CK-2) CK-MB (CK-2) Rel Index Troponin T Total Protein Albumin Albumin/Globulin Ratio - EKG Data -: EKG Interpreted by Ct EKG shows normal: sinus rhythm - EKG Data Interpretation: other (T wave is peaked but not severe. Left axis deviation. Poor R-wave progression.) - Radiology Data Radiology results: report reviewed (chest x-ray shows chronic changes no acute process) Critical care attestation.: If time is entered above; I have spent that time in minutes in the direct care of this critically ill patient, excluding procedure time. ED Disposition Clinical Impression: End-stage renal disease needing dialysis, Hyperkalemia, Cough Cardiomyopathy Qualifiers: Cardiomyopathy type: unspecified Qualified Code(s): I42.9 - Cardiomyopathy, unspecified Disposition: 09 OP ADMIT IP TO THIS HOSP Is pt being admited?: Yes Does the pt Need Aspirin: Yes Condition: Stable Referrals: NAMAN PHILLIPS MD [Primary Care Provider] - 3-5 Days Time of Disposition: 08:25
[2018-04-18 08:18] LABS: Chol/HDL Ratio 1.88 %
[2018-04-18] MEDS ORDERED: BABY ASPIRIN PO ONE (08:25)
--- NOTE | 2018-04-18 09:37 | History and Physical Report ---
History of Present Illness Date of examination: 04/18/18 Chief complaint: Cough History of present illness: Patient is a 72 yo woman from [facility] with a plethora of severe co-morbidities including ESRD on HD MWF, malfunctioning HD access, syncope, type 2 DM, AOCD, colitis, p. Afb, peripheral vascular disease status post right AKA, hypertension, dyslipidemia, stroke with a right-sided deficits, coronary artery disease status post cardiac stent 2 years ago, kitchen tolic heart failure and chronically elevated troponin (usually around 0.2) who presents to [facility] ED with unproductive cough x 1 week, report of being seen at [facility]. Patient is a poor historian and doesn't know why she is here and doesn't know the current year. She will answers some questions. No family present at this time. The cough started about 2 weeks ago, she went to doctor and was given Doxycycline. The cough is documented as intermittent, without aggravating, relieving factors. PMH: as hpi, also migraine headaches, gastroparesis PSH: Multiple Fistulograms, RUE AV fistula, Cardiac stent>10 years ago, R AKA, SH: former smoker/quit >1year ago, no ETOH, no illegal drugs FH: DM, hypertension ROS: Constitutional: denies: fever ENT: denies: throat or neck pain Respiratory: denies: shortness of breath, +cough Cardiovascular: denies: chest pain Endocrine: denies unexplained weight loss or gain Gastrointestinal: denies: abdominal pain, nausea Genitourinary: denies: dysuria Rectal: denies no incontinence, no bleeding, no itching, no discharge Musculoskeletal: denies swelling, myaglia, muscle weakness Skin: denies: rash Neurological: denies: headache Hematological/Lymphatic: denies: easy bleeding or easy bruising Allergic/Immunologic: no urticaria, no allergic rhinitis, no anaphylaxis Psych: denies sadness or hopelessness, SI/HI Medications and Allergies Allergies Allergy/AdvReac Type Severity Reaction Status Date / Time No Known Allergies Allergy Verified 06/14/13 10:48 Home Medications Medication Instructions Recorded Confirmed Last Taken Type Clopidogrel [Plavix] 75 mg PO QDAY 04/21/13 04/18/18 04/17/18 09:00 History Escitalopram [Lexapro] 10 mg PO DAILY 01/04/18/18 04/17/18 09:00 History Sevelamer Carbonate [Renvela] 800 mg PO TIDWM 09/05/14 04/18/18 04/17/18 09:00 History AtorvaSTATin [Lipitor] 20 mg PO DAILY 09/28/14 04/18/18 04/17/18 09:00 History Ergocalciferol [Vitamin D2] 1 cap PO QWEEK 10/09/17 04/18/18 04/17/18 09:00 History Nephrocaps Softgel 1 each PO DAILY 10/09/17 04/18/18 04/17/18 09:00 History Docusate Sodium [Colace CAP] 100 mg PO BID 04/18/18 04/18/18 04/17/18 09:00 History Ferrous Gluconate 324 mg PO DAILY 04/18/18 04/18/18 04/17/18 09:00 History Labetalol HCl 300 mg PO DAILY 04/18/18 04/18/18 04/17/18 09:00 History Loratadine 10 mg PO DAILY 04/18/18 04/18/18 04/17/18 09:00 History Olmesartan (Nf) [Benicar (Nf)] 20 mg PO QDAY 04/18/18 04/18/18 04/17/18 09:00 History amLODIPine [Norvasc] 5 mg PO QDAY 04/18/18 04/18/18 04/17/18 09:00 History guaiFENesin [Guaifenesin] 1,200 mg PO Q12HR PRN 04/18/18 04/18/18 04/17/18 09:00 History Exam - Physical Exam Narrative exam: Gen: chronic disable, NAD, Awake, Orientated x 2, knows that she is in the hospital, knows name but told me she was 62yo (she is 72 yo), did not know the year HEENT: NCAT, EOMI, PERRL, OP Clear Neck: supple, no adenopathy, no thyromegaly, no JVD CVS/Heart: RRR, normal S1S2, pulses present bilaterally Chest/Lungs: CTA B, Symmetrical chest expansion, good air entry bilaterally GI/Abdomen: soft, NTND, good bowel sounds, no guarding or rebound /Bladder: no suprapubic tenderness, no CVA or paraspinal tenderness Extermity/Skin: right AKA, no left leg edema MSK: FROM x 2, right sided weakness Neuro: CN 2-12 grossly intact, no new focal deficits Psych: calm but confused - Constitutional Vitals: Temp Pulse Resp BP Pulse Ox 98.4 F 74 16 182/59 96 04/18/18 06:15 04/18/18 07:08 04/18/18 06:36 04/18/18 07:08 04/18/18 06:36 Results - Labs CBC & Chem 7: 04/18/18 06:39 04/18/18 06:39 Labs: Abnormal lab results 04/18/18 04/18/18 04/18/18 Range/Units 06:39 06:39 06:49 RDW 17.4 H (13.2-15.2) % Plt Count 134 L (140-440) K/mm3 [place] % (Auto) 9.0 H (0.0-7.3) % Eos % (Auto) 4.5 H (0.0-4.3) % Sodium 135 L (137-145) mmol/L Potassium 5.5 H (3.6-5.0) mmol/L Chloride 96.1 L (98-107) mmol/L BUN 52 H (7-17) mg/dL Creatinine 7.4 H (0.7-1.2) mg/dL Phosphorus (2.5-4.5) mg/dL ALT 6 L (7-56) units/L Alkaline Phosphatase 185 H (35-129) units/L Troponin T (0.00-0.029) ng/mL NT-Pro-B Natriuret Pep 24949 H (0-900) pg/mL Albumin 3.8 L (3.9-5) g/dL LDL Cholesterol Direct (50-130) mg/dL HDL Cholesterol (40-59) mg/dL 04/18/18 04/18/18 Range/Units 06:49 06:49 RDW (13.2-15.2) % Plt Count (140-440) K/mm3 [place] % (Auto) (0.0-7.3) % Eos % (Auto) (0.0-4.3) % Sodium (137-145) mmol/L Potassium (3.6-5.0) mmol/L Chloride (98-107) mmol/L BUN (7-17) mg/dL Creatinine (0.7-1.2) mg/dL Phosphorus 6.30 H (2.5-4.5) mg/dL ALT (7-56) units/L Alkaline Phosphatase (35-129) units/L Troponin T 0.182 H* (0.00-0.029) ng/mL NT-Pro-B Natriuret Pep (0-900) pg/mL Albumin (3.9-5) g/dL LDL Cholesterol Direct 44 L (50-130) mg/dL HDL Cholesterol 62 H (40-59) mg/dL Assessment and Plan Patient is a 72 yo woman with a plethora of severe co-morbidities including ESRD on HD MWF, malfunctioning HD access, syncope, C.diffe, type 2 DM, AOCD, co litis, p. Afb, peripheral vascular disease status post right AKA, hypertension, dyslipidemia, stroke with a right-sided deficits, coronary artery disease status post cardiac stent 2 years ago, diastolic heart failure and chronically elevated troponin (usually around 0.2) who presents to [facility] ED with severe unproductive cough x 1 week, report of being seen at [facility]. Patient is a poor historian and doesn't know why she is here and doesn't know the current year. No family present at this time. The cough started about 2 weeks ago, she went to doctor and was given Doxycycline. The cough is documented as intermittent, without aggravating, relieving factors. I spoke with daughter, Denise [phone]. The cough started 1 month ago, she went to see PCP in [facility] practice, thought it was the Lisinopril causing cough but the cough remained and got worse/more repetitive, Denise was sick 2.5 weeks ago (patient lives with daugther), They were back to see PCP and was given Doxycyline and Tessalon pearles on 04/08/18, flonase did not work, tessalon pearles did not help, she was given something for GERD which did not help the cough which throughout the day. She went back PCP, April 11, 2018 and maybe something on cxr, then sent to [facility] ED and gave her hydroc odone cough med that helped but the albuterol that was given did NOT. Patient [facility] but no reported illness there per daughter. * plt 134, na 135, k 5.5, Cr 7.4, Troponin 0.182, pro-BNP 11290 * pCXR Impression: Chronic lung changes, no acute process in the chest -URI: treat with Claritin and Flonase, antussive, consulted Pulmonology -ESRD: needs Hemodialysis, consult Nephrology -AMS, I do not know her baseline mental status, acute unspecified encephalopathy -Malignant Hypertension 224/73: treat with IV hydralazine -Hyperkalemia, mild K 5.5: treat with HD -DM type 2: ssi, ada diet -Chronic diastolic heart failure: treat with ultrafiltration during HD -Mild thrombocytopenia: monitor cbc closely -DVT prophylaxis: scd and sq heparin, watch plt count closely
[2018-04-18] MEDS ORDERED: D50W (25GM) Syringe IV PRN (10:10)
[2018-04-18] MEDS ORDERED: ROBITUSSIN AC PO PRN (10:11)
[2018-04-18] MEDS ORDERED: ZOFRAN IV PRN (10:13)
[2018-04-18] MEDS ORDERED: TYLENOL PO PRN (10:13)
[2018-04-18] MEDS: PROTONIX PO SCH (11:55)
[2018-04-18] MEDS: CLARITIN PO SCH (11:55)
[2018-04-18] MEDS: HumaLOG SUB-Q SCH ×3 (12:00→23:18)
[2018-04-18] MEDS: FLONASE NS SCH (12:00)
[2018-04-18] MEDS ORDERED: NACL 0.9% 100 ML IV PRN (13:11)
--- NOTE | 2018-04-18 13:11 | Consultation ---
History of Present Illness - History of Present Illness Thank you for the consultation ! Patient was evaluated today My assessment and plan are as follows; End-stage renal disease: Currently on maintenance hemodialysis, patient will r eceive her hemodialysis treatment today Anemia and end-stage renal disease: To monitor and follow, hemoglobin currently stable at 12.4 Hypertension. Needs close monitoring. Follow-up hemodialysis Secondary hyperparathyroidism: Check phosphorus and PTH level periodically Mild thrombocytopenia. Platelet count 234,000, to monitor and follow Mild hyponatremia, likely resulting from volume overload Mild hyperkalemia. Patient will require renal replacement therapy Multiple underlying comorbidities including end-stage renal disease, syncope, diabetes, colitis, atrial fibrillation, peripheral vascular disease, status post right AKA, hypertension, hyperlipidemia, stroke, right-sided weakness, cardiac stent, diastolic heart failure Admitted with nonproductive cough also seen and supervised on hemodialysis We will continue to follow and make recommendations from renal standpoint. Thank you for the consultation Author: Sachin Romero M.D. [facility] ([facility]3] Nephrology, [address] [place] [address] Tel; [phone] Source of information: From current chart, old records Patient very poor historian History of present illness Patient is a 72-year-old -[place] female who has been admitted here, with dry cough which has been present for past few weeks and was seen by primary care physician, and was given prescription of doxycycline, patient has no history of any fever chills nausea vomiting. She is also due for her dialysis today she is an extremely poor historian Most of the information was often from patient's current chart Past medical history significant for End-stage renal disease Anemia and end-stage renal disease Secondary hyperparathyroidism Constipation Vitamin D deficiency Cardiomyopathy Syncope Above-knee amputation Stroke Right-sided deficit Former tobacco abuse Current allergies: Reviewed Home medication/ present medication: Reviewed Social history/family history: Reviewed Review of systems Limited patient being very poor historian does complain of cough without any fever chills nausea vomiting Physical examination Vitals: Reviewed General: No acute distress HEENT: Oral mucosa moist no pallor or icterus Neck: Supple without any JVD thyromegaly or nodular mass Chest: Clear to auscultation Heart: Regular rate and rhythm S1-S2 heard no S3-S4 Abdomen: Soft nontender, bowel sounds present no renal bruit no suprapubic masses no CVA tenderness noted Extremity: Minimal edema dry skin no peripheral cyanosis Endocrine: Thyroid not enlarged Psychiatric: No agitation and aggression noted Musculoskeletal: No joint effusion noted Labs and x-rays: Reviewed from this admission Medications and Allergies Allergies Allergy/AdvReac Type Severity Reaction Status Date / Time No Known Allergies Allergy Verified 06/14/13 10:48 Home Medications Medication Instructions Recorded Confirmed Last Taken Type Clopidogrel [Plavix] 75 mg PO QDAY 04/21/13 04/18/18 04/17/18 09:00 History Escitalopram [Lexapro] 10 mg PO DAILY 03/16/14 04/18/18 04/17/18 09:00 History Sevelamer Carbonate [Renvela] 800 mg PO TIDWM 09/05/14 04/18/18 04/17/18 09:00 History AtorvaSTATin [Lipitor] 20 mg PO DAILY 09/28/14 04/18/18 04/17/18 09:00 History Ergocalciferol [Vitamin D2] 1 cap PO QWEEK 10/09/17 04/18/18 04/17/18 09:00 History Nephrocaps Softgel 1 each PO DAILY 10/09/17 04/18/18 04/17/18 09:00 History Docusate Sodium [Colace CAP] 100 mg PO BID 04/18/18 04/18/18 04/17/18 09:00 History Ferrous Gluconate 324 mg PO DAILY 04/18/18 04/18/18 04/17/18 09:00 History Labetalol HCl 300 mg PO DAILY 04/18/18 04/18/18 04/17/18 09:00 History Loratadine 10 mg PO DAILY 04/18/18 04/18/18 04/17/18 09:00 History Olmesartan (Nf) [Benicar (Nf)] 20 mg PO QDAY 04/18/18 04/18/18 04/17/18 09:00 History amLODIPine [Norvasc] 5 mg PO QDAY 04/18/18 04/18/18 04/17/18 09:00 History guaiFENesin [Guaifenesin] 1,200 mg PO Q12HR PRN 04/18/18 04/18/18 04/17/18 09:00 History Active Meds: Active Medications Acetaminophen (Tylenol) 650 mg PO Q6H PRN PRN Reason: Non Cardiac Pain or Temp>100.5 Benzonatate (Tessalon Perles) 100 mg PO Q8HR [facility] Dextrose (D50w (25gm) Syringe) 50 ml IV PRN PRN PRN Reason: Hypoglycemia Fluticasone Propionate (Flonase) 100 mcg NS QDAY [facility] Last Admin: 04/18/18 12:00 Dose: 100 mcg Documented by: Heparin Sodium (Porcine) (Heparin) 5,000 unit SUB-Q Q12HR [facility] Insulin Human Lispro (Humalog) 0 unit SUB-Q ACHS [facility]; Protocol Loratadine (Claritin) 10 mg PO QDAY [facility] Last Admin: 04/18/18 11:55 Dose: 10 mg Documented by: Ondansetron HCl (Zofran) 4 mg IV Q4H PRN PRN Reason: Nausea And Vomiting Pantoprazole Sodium (Protonix) 40 mg PO QDAY [facility] Last Admin: 04/18/18 11:55 Dose: 40 mg Documented by: Pseudoephedrine/Acetam/Chlorphenir (Robitussin Ac) 10 ml PO Q4H PRN PRN Reason: Cough Exam - Vital Signs Vital signs: Vital Signs Temp Pulse Resp BP Pulse Ox 98.4 F 88 18 224/73 100 04/18/18 06:06 04/18/18 06:06 04/18/18 06:06 04/18/18 06:06 04/18/18 06:06 Results - Lab Results 04/18/18 06:39 04/18/18 06:39 Most recent lab results Calcium 9.3 mg/dL (8.4-10.2) 04/18/18 06:39 Phosphorus 6.30 mg/dL (2.5-4.5) H 04/18/18 06:49 Magnesium 2.10 mg/dL (1.7-2.3) 04/18/18 06:49
[2018-04-18] MEDS: TESSALON PERLES PO SCH ×2 (13:41→21:09)
--- NOTE | 2018-04-18 17:22 | Consultation ---
History of Present Illness Consult date: 04/18/18 Requesting physician: AVRIL ACOSTA Reason for consult: cough History of present illness: All history obtained from chart. 72 y/o female with ESRD on HD who has had a cough for approximately 1 month. Not productive per report. Most of history was obtained from daughter who the attending spoke to. Patient has been treated for acid reflux, post nasal drip and attempt was made at treating cough variant asthma but only albuterol was given and no inhaled steroid. Admitted now for cough. CXR is stable. No fever. Medications have been reviewed and patient was on an jere inhibitor but this was stopped as well. Still no improvement in the cough. Past History Past Medical History: other (Please see HPI) Past Surgical History: Other (Please see HPI) Medications and Allergies Allergies Allergy/AdvReac Type Severity Reaction Status Date / Time No Known Allergies Allergy Verified 06/14/13 10:48 Home Medications Medication Instructions Recorded Confirmed Last Taken Type Clopidogrel [Plavix] 75 mg PO QDAY 04/21/13 04/18/18 04/17/18 09:00 History Escitalopram [Lexapro] 10 mg PO DAILY 03/16/14 04/18/18 04/17/18 09:00 History Sevelamer Carbonate [Renvela] 800 mg PO TIDWM 09/05/14 04/18/18 04/17/18 09:00 History AtorvaSTATin [Lipitor] 20 mg PO DAILY 09/28/14 04/18/18 04/17/18 09:00 History Ergocalciferol [Vitamin D2] 1 cap PO QWEEK 10/09/17 04/18/18 04/17/18 09:00 History Nephrocaps Softgel 1 each PO DAILY 10/09/17 04/18/18 04/17/18 09:00 History Docusate Sodium [Colace CAP] 100 mg PO BID 04/18/18 04/18/18 04/17/18 09:00 History Ferrous Gluconate 324 mg PO DAILY 04/18/18 04/18/18 04/17/18 09:00 History Labetalol HCl 300 mg PO DAILY 04/18/18 04/18/18 04/17/18 09:00 History Loratadine 10 mg PO DAILY 04/18/18 04/18/18 04/17/18 09:00 History Olmesartan (Nf) [Benicar (Nf)] 20 mg PO QDAY 04/18/18 04/18/18 04/17/18 09:00 History amLODIPine [Norvasc] 5 mg PO QDAY 04/18/18 04/18/18 04/17/18 09:00 History guaiFENesin [Guaifenesin] 1,200 mg PO Q12HR PRN 04/18/18 04/18/18 04/17/18 09:00 History Active Meds: Active Medications Acetaminophen (Tylenol) 650 mg PO Q6H PRN PRN Reason: Non Cardiac Pain or Temp>100.5 Benzonatate (Tessalon Perles) 100 mg PO Q8HR [facility] Last Admin: 04/18/18 13:41 Dose: Not Given Documented by: Dextrose (D50w (25gm) Syringe) 50 ml IV PRN PRN PRN Reason: Hypoglycemia Fluticasone Propionate (Flonase) 100 mcg NS QDAY [facility] Last Admin: 04/18/18 12:00 Dose: 100 mcg Documented by: Heparin Sodium (Porcine) (Heparin) 5,000 unit SUB-Q Q12HR [facility] Sodium Chloride (Nacl 0.9%) 100 mls @ 999 mls/hr IV JUAN CARLOS PRN PRN Reason: Hypotension Insulin Human Lispro (Humalog) 0 unit SUB-Q [facility]; Protocol Last Admin: 04/18/18 17:09 Dose: Not Given Documented by: Loratadine (Claritin) 10 mg PO QDAY [facility] Last Admin: 04/18/18 11:55 Dose: 10 mg Documented by: Ondansetron HCl (Zofran) 4 mg IV Q4H PRN PRN Reason: Nausea And Vomiting Pantoprazole Sodium (Protonix) 40 mg PO QDAY [facility] Last Admin: 04/18/18 11:55 Dose: 40 mg Documented by: Pseudoephedrine/Acetam/Chlorphenir (Robitussin Ac) 10 ml PO Q4H PRN PRN Reason: Cough Review of Systems All systems: negative Physical Examination Vital signs: Vital Signs Temp Pulse Resp BP Pulse Ox 98.4 F 88 18 224/73 100 04/18/18 06:06 04/18/18 06:06 04/18/18 06:06 04/18/18 06:06 04/18/18 06:06 General appearance: no acute distress, alert Ascultation: Bilateral: clear Results - Laboratory Findings CBC and BMP: 04/18/18 06:39 04/18/18 06:39 PT/INR, D-dimer PT 13.6 Sec. (12.2-14.9) 04/18/18 06:49 INR 0.98 (0.87-1.13) 04/18/18 06:49 Abnormal lab findings: Abnormal Labs 04/18/18 04/18/18 04/18/18 06:39 06:39 06:49 RDW 17.4 H Plt Count 134 L [place] % (Auto) 9.0 H Eos % (Auto) 4.5 H Sodium 135 L Potassium 5.5 H Chloride 96.1 L BUN 52 H Creatinine 7.4 H Phosphorus ALT 6 L Alkaline Phosphatase 185 H Troponin T NT-Pro-B Natriuret Pep 27722 H Albumin 3.8 L LDL Cholesterol Direct HDL Cholesterol 04/18/18 04/18/18 06:49 06:49 RDW Plt Count [place] % (Auto) Eos % (Auto) Sodium Potassium Chloride BUN Creatinine Phosphorus 6.30 H ALT Alkaline Phosphatase Troponin T 0.182 H* NT-Pro-B Natriuret Pep Albumin LDL Cholesterol Direct 44 L HDL Cholesterol 62 H - Diagnostic Findings Chest x-ray: image reviewed (as stated in hPI) Assessment and Plan 72 y/o female with cough. Chronic cough usually last more than 6 weeks so she is just at the cusp of this. She was exposed to some one with a URI and may have had one herself and sometimes it can take that cough about 6 weeks to go away. I agree with the current outpatient regimens that were tried with the exception of the cough vari ant asthma, but I wonder the duration of each therapy. With GERD and Post Nasal Drip as well as Cough variant asthma, you need at least 2 solid weeks of therapy in order to determine if failure from those meds. In the interim would suggest the following. 1. Place back on PPI therapy orally, 40mg PO BID. Discharge on this. 2. Resume flonase therapy but would do one spray each nostril BID and discharge on this. 3. Would start patient on Symbicort 80 2 puffs BID and discharge patient on this. 4. She should abstain from Mint candies, chocolate, coffee and spicy foods if she endulges in any of these things. 5. She should complete the above regimen for 2 weeks and follow up in our office to see if cough has improved or has gone away completely. 6. If no improvement, could consider a short course of oral steroid vs bronchoscopy vs both. Thanks for the consult. Will set up follow up in our office for post discharge. The above medical therapies can be started now or at discharge. Symbicort is not on formulary but Pulmicort and Brovana BID would suffice. Will sign off, call if questions.
[2018-04-18 20:45] LABS: Hepatitis B Surface Antigen Non-Reactive (Negative); Hepatitis C Virus Antibody Non-Reactive (NonReactive)
[2018-04-19] MEDS: TESSALON PERLES PO SCH ×2 (05:31→14:01)
[2018-04-19 08:19] VITALS: BP 181/63
--- NOTE | 2018-04-19 10:00 | Progress Note ---
Assessment and Plan Assessment and plan: Patient is a 72 yo woman with a plethora of severe co-morbidities including ESRD on HD MWF, malfunctioning HD access, syncope, C.diffe, type 2 DM, AOCD, colitis, p. Afb, peripheral vascular disease status post right AKA, hypertension, dyslipidemia, stroke with a right-sided deficits, coronary artery disease status post cardiac stent 2 years ago, diastolic heart failure and chronically elevated troponin (usually around 0.2) who presents to [facility] ED with severe unproductive cough x 1 week, report of being seen at [facility]. Patient is a poor historian and doesn't know why she is here and doesn't know the current year. No family present at this time. The cough started about 2 weeks ago, she went to doctor and was given Doxycycline. The cough is documented as intermittent, without aggravating, relieving factors. I spoke with daughter, Denise [phone]. The cough started 1 month ago, she went to see PCP in [facility], thought it was the Lisinopril causing cough but the cough remained and got worse/more repetitive, Denise was sick 2.5 weeks ago (patient lives with michellether), They were back to see PCP and was given Doxycyline and Tessalon pearles on 04/08/18, flonase did not work, tessalon pearles did not help, she was given something for GERD which did not help the cough which throughout the day. She went back PCP, April 11, 2018 and maybe something on cxr, then sent to [facility] ED and gave her hydrocodone cough med that helped but the albuterol that was given did NOT. [facility] but no reported illness there per daught er. * plt 134, na 135, k 5.5, Cr 7.4, Troponin 0.182, pro-BNP 92944 * pCXR Impression: Chronic lung changes, no acute process in the chest -URI: treat with Claritin and Flonase, antussive, consulted Pulmonology -ESRD: needs Hemodialysis, consult Nephrology -AMS, I do not know her baseline mental status, acute unspecified e ncephalopathy, poa -Malignant Hypertension 224/73: treat with IV hydralazine -Hyperkalemia, mild K 5.5: treat with HD -DM type 2: ssi, ada diet -Chronic diastolic heart failure: treat with ultrafiltration during HD -Mild thrombocytopenia: monitor cbc closely -DVT prophylaxis: scd and sq heparin, watch plt count closely Home today with the following Dr. Lopez, pulmonary recommendations: "Chronic cough usually last more than 6 weeks so she is just at the cusp of this. She was exposed to some one with a URI and may have had one herself and sometimes it can take that cough about 6 weeks to go away. I agree with the current outpatient regimens that were tried with the exception of the cough variant asthma, but I wonder the duration of each therapy. With GERD and Post Nasal Drip as well as Cough variant asthma, you need at least 2 solid weeks of therapy in order to determine if failure from those meds. In the interim would suggest the following. 1. Place back on PPI therapy orally, 40mg PO BID. Discharge on this. 2. Resume flonase therapy but would do one spray each nostril BID and discharge on this. 3. Would start patient on Symbicort 80 2 puffs BID and discharge patient on this. 4. She should abstain from Mint candies, chocolate, coffee and spicy foods if she endulges in any of these things. 5. She should complete the above regimen for 2 weeks and follow up in our office to see if cough has improved or has gone away completely. 6. If no improvement, could consider a short course of oral steroid vs bronchoscopy vs both. Thanks for the consult. Will set up follow up in our office for post discharge. The above medical therapies can be started now or at discharge. Symbicort is not on formulary but Pulmicort and Brovana BID would suffice. Will sign off, call if questions." History Interval history: Patient was seen and examined. Follow-up on current diagnosis of cough and AMS, which has resolved. Overnight uneventful. Patient denies any chest pain, shortness breath, nausea/vomiting or severe headaches. Imaging, nursing note, chart, labs and old chart reviewed. Discussed with patient. Hospitalist Physical - Physical exam Narrative exam: Gen: chronic disable, NAD, Awake, Orientated x 3 HEENT: NCAT, EOMI, PERRL, OP Clear Neck: supple, no adenopathy, no thyromegaly, no JVD CVS/Heart: RRR, normal S1S2, pulses present bilaterally Chest/Lungs: CTA B, Symmetrical chest expansion, good air entry bilaterally GI/Abdomen: soft, NTND, good bowel sounds, no guarding or rebound /Bladder: no suprapubic tenderness, no CVA or paraspinal tenderness Extermity/Skin: right AKA, no left leg edema MSK: FROM x 2, right sided weakness Neuro: CN 2-12 grossly intact, no new focal deficits Psych: calm - Constitutional Vitals: Temp Pulse Resp BP Pulse Ox 97.7 F 69 20 181/63 98 04/19/18 07:11 04/19/18 07:11 04/19/18 08:38 04/19/18 07:11 04/19/18 08:38 Results - Labs CBC & Chem 7: 04/18/18 06:39 04/18/18 06:39 Labs: Laboratory Last Values WBC 4.6 K/mm3 (4.5-11.0) 04/18/18 06:39 RBC 3.92 M/mm3 (3.65-5.03) 04/18/18 06:39 Hgb 12.4 gm/dl (10.1-14.3) 04/18/18 06:39 Hct 36.8 % (30.3-42.9) 04/18/18 06:39 MCV 94 fl (79-97) 04/18/18 06:39 MCH 32 pg (28-32) 04/18/18 06:39 MCHC 34 % (30-34) 04/18/18 06:39 RDW 17.4 % (13.2-15.2) H 04/18/18 06:39 Plt Count 134 K/mm3 (140-440) L 04/18/18 06:39 Lymph % (Auto) 28.8 % (13.4-35.0) 04/18/18 06:39 [place] % (Auto) 9.0 % (0.0-7.3) H 04/18/18 06:39 Eos % (Auto) 4.5 % (0.0-4.3) H 04/18/18 06:39 Baso % (Auto) 0.5 % (0.0-1.8) 04/18/18 06:39 Lymph # 1.3 K/mm3 (1.2-5.4) 04/18/18 06:39 [place] # 0.4 K/mm3 (0.0-0.8) 04/18/18 06:39 Eos # 0.2 K/mm3 (0.0-0.4) 04/18/18 06:39 Baso # 0.0 K/mm3 (0.0-0.1) 04/18/18 06:39 Seg Neutrophils % 57.2 % (40.0-70.0) 04/18/18 06:39 Seg Neutrophils # 2.6 K/mm3 (1.8-7.7) 04/18/18 06:39 PT 13.6 Sec. (12.2-14.9) 04/18/18 06:49 INR 0.98 (0.87-1.13) 04/18/18 06:49 APTT 24.7 Sec. (24.2-36.6) 04/18/18 06:49 Sodium 135 mmol/L (137-145) L 04/18/18 06:39 Potassium 5.5 mmol/L (3.6-5.0) H 04/18/18 06:39 Chloride 96.1 mmol/L (98-107) L 04/18/18 06:39 Carbon Dioxide 22 mmol/L (22-30) 04/18/18 06:39 Anion Gap 22 mmol/L 04/18/18 06:39 BUN 52 mg/dL (7-17) H 04/18/18 06:39 Creatinine 7.4 mg/dL (0.7-1.2) H 04/18/18 06:39 Estimated GFR 7 ml/min 04/18/18 06:39 BUN/Creatinine Ratio 7 % 04/18/18 06:39 Glucose 88 mg/dL (65-100) 04/18/18 06:39 POC Glucose 70 (70-105) 04/19/18 07:15 Hemoglobin A1c 5.0 % (4-6) 04/19/18 04:52 Lactic Acid 0.80 mmol/L (0.7-2.0) 04/18/18 06:49 Calcium 9.3 mg/dL (8.4-10.2) 04/18/18 06:39 Phosphorus 6.30 mg/dL (2.5-4.5) H 04/18/18 06:49 Magnesium 2.10 mg/dL (1.7-2.3) 04/18/18 06:49 Total Bilirubin 0.30 mg/dL (0.1-1.2) 04/18/18 06:49 Direct Bilirubin < 0.2 mg/dL (0-0.2) 04/18/18 06:49 Indirect Bilirubin 0.1 mg/dL 04/18/18 06:49 AST 9 units/L (5-40) 04/18/18 06:49 ALT 6 units/L (7-56) L 04/18/18 06:49 Alkaline Phosphatase 185 units/L (35-129) H 04/18/18 06:49 Total Creatine Kinase 77 units/L (30-135) 04/18/18 06:49 CK-MB (CK-2) 2.7 ng/mL (0.0-4.0) 04/18/18 06:49 CK-MB (CK-2) Rel Index 3.5 (0-4) 04/18/18 06:49 Troponin T 0.182 ng/mL (0.00-0.029) H* 04/18/18 06:49 NT-Pro-B Natriuret Pep 33597 pg/mL (0-900) H 04/18/18 06:49 Total Protein 6.9 g/dL (6.3-8.2) 04/18/18 06:49 Albumin 3.8 g/dL (3.9-5) L 04/18/18 06:49 Albumin/Globulin Ratio 1.2 % 04/18/18 06:49 Triglycerides 76 mg/dL (2-149) 04/18/18 06:49 Cholesterol 117 mg/dL (50-199) 04/18/18 06:49 LDL Cholesterol Direct 44 mg/dL (50-130) L 04/18/18 06:49 HDL Cholesterol 62 mg/dL (40-59) H 04/18/18 06:49 Cholesterol/HDL Ratio 1.88 % 04/18/18 06:49 Hepatitis A IgM Ab Non-reactive (NonReactive) 04/18/18 19:21 Hep Bs Antigen Non-reactive (Negative) 04/18/18 19:21 Hep B Core IgM Ab Non-reactive (NonReactive) 04/18/18 19:21 Hepatitis C Antibody Non-reactive (NonReactive) 04/18/18 19:21 Blood Type O POSITIVE 04/18/18 06:49 Antibody Screen Negative 04/18/18 06:49
--- NOTE | 2018-04-19 10:06 | Discharge Summary ---
Providers - Providers Date of Admission: 04/18/18 08:26 Date of discharge: 04/19/18 Attending physician: AVRIL ACOSTA 04/18/18 08:27 Consult to Physician [CONS] Urgent Comment: Consulting Provider: MIRYAM ARIZA Physician Instructions: Reason For Exam: end-stage renal needs dialysis 04/18/18 09:52 Consult to Physician [CONS] Routine Comment: Consulting Provider: MIRYAM ARIZA Physician Instructions: Reason For Exam: ESRD needs HD today, pt known to you Primary care physician: NAMAN PHILLIPS Hospitalization Condition: Stable Hospital course: Patient is a 72 yo woman with a plethora of severe co-morbidities including ESRD on HD MWF, malfunctioning HD access, syncope, C.diffe, type 2 DM, AOCD, colitis, p. Afb, peripheral vascular disease status post right AKA, hypertension, dyslipidemia, stroke with a right-sided deficits, coronary artery disease status post cardiac stent 2 years ago, diastolic heart failure and chronically elevated troponin (usually around 0.2) who presents to [facility] ED with severe unproductive cough x 1 week, report of being seen at [facility]. Patient is a poor historian and doesn't know why she is here and doesn't know the current year. No family present at this time. The cough started about 2 weeks ago, she went to doctor and was given Doxycycline. The cough is documented as intermittent, without aggravating, relieving factors. I spoke with daughter, Denise [phone]. The cough started 1 month ago, she went to see PCP in [facility] practice, thought it was the Lisinopril causing cough but the cough remained and got worse/more repetitive, Denise was sick 2.5 weeks ago (patient lives with daugther), They were back to see PCP and was given Doxycyline and Tessalon pearles on 04/08/18, flonase did not work, tessalon pearles did not help, she was given something for GERD which did not help the cough which throughout the day. She went back PCP, April 11, 2018 and maybe something on cxr, then sent to [facility] ED and gave her hydrocodone cough med that helped but the albuterol that was given did NOT. Patient [facility] to [facility] but no reported illness there per daughter. * plt 134, na 135, k 5.5, Cr 7.4, Troponin 0.182, pro-BNP 12426 * pCXR Impression: Chronic lung changes, no acute process in the chest -URI: treat with Claritin and Flonase, antussive, consulted Pulmonology -ESRD: needs Hemodialysis, consult Nephrology -AMS, I do not know her baseline mental status, acute unspecified encephalopathy, poa -Malignant Hypertension 224/73: treat with IV hydralazine -Hyperkalemia, mild K 5.5: treat with HD -DM type 2: ssi, ada diet -Chronic diastolic heart failure: treat with ultrafiltration during HD -Mild thrombocytopenia: monitor cbc closely -DVT prophylaxis: scd and sq heparin, watch plt count closely Home today with the following Dr. Lopez, pulmonary recommendations: "Chronic cough usually last more than 6 weeks so she is just at the cusp of this. She was exposed to some one with a URI and may have had one herself and sometimes it can take that cough about 6 weeks to go away. I agree with the current outpatient regimens that were tried with the exception of the cough variant asthma, but I wonder the duration of each therapy. With GERD and Post Nasal Drip as well as Cough variant asthma, you need at least 2 solid weeks of therapy in order to determine if failure from those meds. In the interim would suggest the following. 1. Place back on PPI therapy orally, 40mg PO BID. Discharge on this. 2. Resume flonase therapy but would do one spray each nostril BID and discharge on this. 3. Would start patient on Symbicort 80 2 puffs BID and discharge patient on this. 4. She should abstain from Mint candies, chocolate, coffee and spicy foods if she endulges in any of these things. 5. She should complete the above regimen for 2 weeks and follow up in our office to see if cough has improved or has gone away completely. 6. If no improvement, could consider a short course of oral steroid vs bronchoscopy vs both. Thanks for the consult. Will set up follow up in our office for post discharge. The above medical therapies can be started now or at discharge. Symbicort is not on formulary but Pulmicort and Brovana BID would suffice. Will sign off, call if questions." Disposition: DC-01 TO HOME OR SELFCARE Time spent for discharge: 34 minutes Core Measure Documentation - Palliative Care Palliative Care/ Comfort Measures: Not Applicable - Core Measures Any of the following diagnoses?: none - VTE Discharge Requirements Deep Vein Thrombosis/Pulmonary Embolism Present on Admission: No Has pt received <5 days of overlap therapy or INR<2.0: No Anticoagulant overlap therapy prescribed at discharge: No Contraindication No Overlap Therapy order at DC: Not Indicated Exam - Physical Exam Narrative exam: Gen: chronic disable, NAD, Awake, Orientated x 3 HEENT: NCAT, EOMI, PERRL, OP Clear Neck: supple, no adenopathy, no thyromegaly, no JVD CVS/Heart: RRR, normal S1S2, pulses present bilaterally Chest/Lungs: CTA B, Symmetrical chest expansion, good air entry bilaterally GI/Abdomen: soft, NTND, good bowel sounds, no guarding or rebound /Bladder: no suprapubic tenderness, no CVA or paraspinal tenderness Extermity/Skin: right AKA, no left leg edema MSK: FROM x 2, right sided weakness Neuro: CN 2-12 grossly intact, no new focal deficits Psych: calm - Constitutional Vitals: Temp Pulse Resp BP Pulse Ox 97.7 F 69 20 181/63 98 04/19/18 07:11 04/19/18 07:11 04/19/18 08:38 04/19/18 07:11 04/19/18 08:38 Plan Activity: other (no strenous activity unless cleared by PCP) Diet: renal Follow up with: NAMAN PHILLIPS MD [Primary Care Provider] - 3-5 Days MIRYAM ARIZA MD [Staff Physician] - 7 Days KATHRYN ANDERSEN MD [Staff Physician] - 14 Days Forms: Accompanied Note Prescriptions: Arformoterol Nebu [Brovana Nebu] 15 mcg IH Q12HR #30 neb Budesonide [Pulmicort Flexhaler] 1 puff IH BID #1 aer.pow.ba Fluticasone [Flonase] 1 inhalation NS BID 15 Days #1 bottle guaiFENesin/CODEINE [Robitussin AC] 10 ml PO Q4H PRN 5 Days #15 oral.liqd PRN Reason: Cough Loratadine [Claritin] 10 mg PO QDAY #15 tablet Pantoprazole [Protonix TAB] 40 mg PO BID 15 Days #30 tablet
[2018-04-19] MEDS ORDERED: HEPARIN SUB-Q SCH (11:00)
[2018-04-19] MEDS: FLONASE NS SCH (11:07)
[2018-04-19] MEDS: HumaLOG SUB-Q SCH ×2 (11:07→14:02)
[2018-04-19] MEDS: PROTONIX PO SCH (11:07)
[2018-04-19] MEDS: CLARITIN PO SCH (11:07)
[2018-04-19 11:51] LABS: Calcium 9.3 mg/dL (8.4-10.2)
[2018-04-19] MEDS ORDERED: PNEUMOVAX 23 IM ONE (12:00)
--- NOTE | 2018-04-19 12:30 | Progress Note ---
Assessment and Plan Impression * End-stage renal disease on maintenance hemodialysis * Cough * Hypertension * Peripheral vascular disease * Anemia secondary to ESRD * Dementia Recommendations * Patient had uneventful hemodialysis yesterday * Continue dialysis on MWF scheduled for now * Agree with keeping her off JULI inhibitor due to cough * Procrit with dialysis per protocol * Binders with meals * Adjust diet and meds for ESRD state * No IV, BP already punctured her access arm * Patient stable for discharge from renal standpoint Subjective Date of service: 04/19/18 Interval history: Patient is comfortable this morning. Denies any shortness of breath. No nausea or vomiting. Objective - Vital Signs Vital signs: Vital Signs - 12hr 04/19/18 04/19/18 04/19/18 02:52 07:11 08:38 Temperature 98.7 F 97.7 F Pulse Rate 67 69 Respiratory 20 20 20 Rate Blood Pressure 138/47 181/63 O2 Sat by Pulse 99 100 98 Oximetry - General Appearance General appearance: well-developed, well-nourished, appears stated age EENT: PERRL, mucous membranes moist Neck: no JVD, no thyromegaly, no carotid bruit, supple Respiratory: Present: Clear to Ascultation Cardiology: regular, normal heart rate, S1S2, no murmurs Gastrointestinal: normal, normoactive bowel sounds Integumentary: other (right above-knee amputation. AV fistula right upper arm. Good bruit and thrill.) - Lab 04/18/18 06:39 04/19/18 10:50 Most recent lab results Calcium 9.3 mg/dL (8.4-10.2) 04/19/18 10:50 Phosphorus 6.30 mg/dL (2.5-4.5) H 04/18/18 06:49 Magnesium 2.10 mg/dL (1.7-2.3) 04/18/18 06:49 Medications & Allergies - Medications Allergies/Adverse Reactions: Allergies No Known Allergies Allergy (Verified 06/14/13 10:48) Home Medications: Home Medications Medication Instructions Recorded Confirmed Last Taken Type Clopidogrel [Plavix] 75 mg PO QDAY 04/21/13 04/18/18 04/17/18 09:00 History Escitalopram [Lexapro] 10 mg PO DAILY 03/16/14 04/18/18 04/17/18 09:00 History Sevelamer Carbonate [Renvela] 800 mg PO TIDWM 09/05/14 04/18/18 04/17/18 09:00 History AtorvaSTATin [Lipitor] 20 mg PO DAILY 09/28/14 04/18/18 04/17/18 09:00 History Ergocalciferol [Vitamin D2] 1 cap PO QWEEK 10/09/17 04/18/18 04/17/18 09:00 History Nephrocaps Softgel 1 each PO DAILY 10/09/17 04/18/18 04/17/18 09:00 History Docusate Sodium [Colace CAP] 100 mg PO BID 04/18/18 04/18/18 04/17/18 09:00 History Ferrous Gluconate 324 mg PO DAILY 04/18/18 04/18/18 04/17/18 09:00 History Labetalol HCl 300 mg PO DAILY 04/18/18 04/18/18 04/17/18 09:00 History Loratadine 10 mg PO DAILY 04/18/18 04/18/18 04/17/18 09:00 History Olmesartan (Nf) [Benicar] 20 mg PO QDAY 04/18/18 04/18/18 04/17/18 09:00 History amLODIPine [Norvasc] 5 mg PO QDAY 04/18/18 04/18/18 04/17/18 09:00 History guaiFENesin [Guaifenesin ER] 1,200 mg PO Q12HR PRN 04/18/18 04/18/18 04/17/18 09:00 History Acetaminophen [Acetaminophen TAB] 650 mg PO Q6H PRN #10 tablet 04/19/18 Unknown Rx Arformoterol Nebu [Brovana Nebu] 15 mcg IH Q12HR #30 neb 04/19/18 Unknown Rx Budesonide [Pulmicort Flexhaler] 1 puff IH BID #1 aer.pow.[email or web address] 04/19/18 Unknown Rx Fluticasone [Flonase] 1 inhalation NS BID 15 Days #1 04/19/18 Unknown Rx bottle Loratadine [Claritin] 10 mg PO QDAY #15 tablet 04/19/18 Unknown Rx Pantoprazole [Protonix TAB] 40 mg PO BID 15 Days #30 tablet 04/19/18 Unknown Rx guaiFENesin/CODEINE [Robitussin AC] 10 ml PO Q4H PRN 5 Days #15 04/19/18 Unknown Rx oral.liqd Active Medications: Generic Name Dose Route Start Last Admin Trade Name Freq PRN Reason Stop Dose Admin Acetaminophen 650 mg 04/18/18 10:13 04/18/18 19:40 Tylenol PO 650 mg Q6H PRN Administration Non Cardiac Pain or Temp>100.5 Benzonatate 100 mg 04/18/18 14:00 04/19/18 05:31 Tessalon Perles PO 100 mg Q8HR ANNI Administration Dextrose 50 ml 04/18/18 10:10 D50w (25gm) Syringe IV PRN PRN Hypoglycemia Fluticasone Propionate 100 mcg 04/18/18 11:00 04/19/18 11:07 Flonase NS 100 mcg QDAY ANNI Administration Heparin Sodium (Porcine) 5,000 unit 04/19/18 11:00 04/19/18 11:08 Heparin SUB-Q 5,000 unit Q12HR ANNI Administration Sodium Chloride 100 mls @ 999 mls/hr 04/18/18 13:11 Nacl 0.9% IV JUAN CARLOS PRN Hypotension Insulin Human Lispro 0 unit 04/18/18 11:30 04/19/18 11:07 Humalog SUB-Q Not Given ACHS [facility] Protocol Loratadine 10 mg 04/18/18 11:00 04/19/18 11:07 Claritin PO 10 mg QDAY ANNI Administration Ondansetron HCl 4 mg 04/18/18 10:13 Zofran IV Q4H PRN Nausea And Vomiting Pantoprazole Sodium 40 mg 04/18/18 11:00 04/19/18 11:07 Protonix PO 40 mg QDAY ANNI Administration Pseudoephedrine/Acetam/Chlorphenir 10 ml 04/18/18 10:11 04/18/18 19:10 Robitussin Ac PO 10 ml Q4H PRN Administration Cough
== END 2018-04-19 16:30 | disposition home or self-care (01) | DRG 152 ==
LOC: ED 06:00 → 2B-ACE 08:26
PROVIDERS: ADMIT Internal Medicine; ATTEND Internal Medicine
PROC: 5A1D70Z Performance of Urinary Filtration, Intermittent, Less than 6 Hours Per Day (ICD-10-PCS; principal; 2018-04-18)
PROC: 3E0234Z Introduction of Serum, Toxoid and Vaccine into Muscle, Percutaneous Approach (ICD-10-PCS; 2018-04-19)
DX: J06.9 Acute upper respiratory infection, unspecified (principal); N18.6 End stage renal disease; I13.2 Hypertensive heart and chronic kidney disease with heart failure and with stage 5 chronic kidney disease, or end stage renal disease; G93.40 Encephalopathy, unspecified; I50.32 Chronic diastolic (congestive) heart failure; A04.72 Enterocolitis due to Clostridium difficile, not specified as recurrent; N25.81 Secondary hyperparathyroidism of renal origin; E87.1 Hypo-osmolality and hyponatremia; G81.91 Hemiplegia, unspecified affecting right dominant side; I42.9 Cardiomyopathy, unspecified; E87.5 Hyperkalemia; G43.909 Migraine, unspecified, not intractable, without status migrainosus; E11.43 Type 2 diabetes mellitus with diabetic autonomic (poly)neuropathy; K31.84 Gastroparesis; I48.0 Paroxysmal atrial fibrillation; E11.51 Type 2 diabetes mellitus with diabetic peripheral angiopathy without gangrene; E78.5 Hyperlipidemia, unspecified; R55 Syncope and collapse; I25.10 Atherosclerotic heart disease of native coronary artery without angina pectoris; D69.6 Thrombocytopenia, unspecified; E11.22 Type 2 diabetes mellitus with diabetic chronic kidney disease; K59.00 Constipation, unspecified; E55.9 Vitamin D deficiency, unspecified; J45.909 Unspecified asthma, uncomplicated; K21.9 Gastro-esophageal reflux disease without esophagitis; D63.1 Anemia in chronic kidney disease; F03.90 Unspecified dementia, unspecified severity, without behavioral disturbance, psychotic disturbance, mood disturbance, and anxiety; Z23 Encounter for immunization; Z89.611 Acquired absence of right leg above knee; Z87.891 Personal history of nicotine dependence; Z83.3 Family history of diabetes mellitus; Z82.49 Family history of ischemic heart disease and other diseases of the circulatory system; Z86.73 Personal history of transient ischemic attack (TIA), and cerebral infarction without residual deficits
CPT/HCPCS: 36415; 71045; 80048; 80061; 80074; 80076; 82140; 82550; 82553; 82962; 83036; 83735; 83880; 84100; 84484; 85025; 85610; 85730; 86850; 86900; 86901; 87040; 90732; 93005; 93010; G0378; J1644

== ENCOUNTER 2018-11-14 11:11 | Observation (INO) | payer MEDICARE ==
--- NOTE | 2018-11-14 11:35 | Emergency Department Report ---
HPI - General Chief Complaint: Syncope Time Seen by Provider: 11/14/18 11:31 - HPI HPI: 72-year-old -[place] female presents to the emergency department by EMS from her dialysis clinic after she had a syncopal episode after receiving about 1.5 hours of dialysis. She had some hypotension with EMS with a BP of 80/39 but it has improved. The patient is currently drowsy but arousable but is currently confused. She has a past medical history of CVA with residual right-sided deficits, coronary artery disease, CHF, end-stage renal disease on hemodialysis on Saturday/Saturday/Saturday, diabetes and hypertension. Unknown who her primary care physician or moving picture producer R at this time as the patient is a poor historian secondary to her current medical condition. ED Past Medical Hx - Past Medical History Previous Medical History?: Yes Hx Hypertension: Yes Hx CVA: Yes Hx Heart Attack/AMI: Yes Hx Congestive Heart Failure: No Hx Diabetes: Yes (NIDDM, not currently on medication) Hx Deep Vein Thrombosis: No Hx Pulmonary Embolism: No Hx GERD: No Hx Liver Disease: No Hx Renal Disease: Yes (ESRD) Hx Sickle Cell Disease: No Hx Arthritis: No Hx Headaches / Migraines: Yes Hx Seizures: No Hx Kidney Stones: No Hx Psychiatric Treatment: No Hx Asthma: No Hx COPD: No Hx Tuberculosis: No Hx Dementia: No Hx HIV: No Additional medical history: gastroparesis - Surgical History Past Surgical History?: Yes Hx Coronary Stent: Yes Hx Open Heart Surgery: No Hx Pacemaker: No Hx Internal Defibrillator: No Hx Cholecystectomy: No Hx Appendectomy: No Hx Breast Surgery: No Additional Surgical History: Right AKA - Social History Smoking Status: Current Every Day Smoker Substance Use Type: None - Medications Home Medications: Home Medications Medication Instructions Recorded Confirmed Last Taken Type Clopidogrel [Plavix] 75 mg PO QDAY 04/21/13 11/14/18 04/17/18 09:00 History Escitalopram [Lexapro] 10 mg PO DAILY 03/16/14 11/14/18 04/17/18 09:00 History Sevelamer Carbonate [Renvela] 1,600 mg PO TIDWM 09/05/14 11/14/18 04/17/18 09:00 History AtorvaSTATin [Lipitor] 20 mg PO DAILY 09/28/14 11/14/18 04/17/18 09:00 History Labetalol HCl [Labetalol 300mg TAB] 300 mg PO DAILY 04/18/18 11/14/18 04/17/18 09:00 History Pantoprazole [Protonix TAB] 40 mg PO BID 15 Days #30 tablet 04/19/18 11/14/18 Unknown Rx Losartan [Cozaar] 50 mg PO QDAY 07/03/18 11/14/18 Unknown History Amlodipine Besylate [Norvasc] 5 mg PO QDAY 11/14/18 11/14/18 Unknown History Gabapentin [Neurontin] 300 mg PO DAILY 11/14/18 11/14/18 Unknown History ED Review of Systems ROS: Stated complaint: SYNCOPY Other details as noted in HPI Comment: Unobtainable due to pts medical conditions Cardiovascular: syncope Physical Exam - Physical Exam Vital Signs: Vital Signs 11/14/18 11/14/18 11:22 11:25 Temperature 97.7 F Pulse Rate 64 Respiratory 15 Rate Blood Pressure 127/51 [Left] Physical Exam: GENERAL: The patient is well-developed well-nourished. HENT: Normocephalic. Atraumatic. Patient has moist mucous membranes. EYES: Extraocular motions are intact. Pupils equal reactive to light bilaterally. NECK: Supple. Trachea is midline. CHEST/LUNGS: Clear to auscultation. There is no respiratory distress noted. HEART/CARDIOVASCULAR: Regular. There is no tachycardia. There is no murmur. ABDOMEN: Abdomen is soft, nontender. Patient has normal bowel sounds. There is no abdominal distention. SKIN: Skin is warm and dry. NEURO: Patient is drowsy but is arousable. Once awake she is AAO [address] but not time. Normal speech. Cranial nerves II through XII intact. MUSCULOSKELETAL: There is no tenderness or deformity. There is no evidence of acute injury. ED Course Vital Signs 11/14/18 11/14/18 11:22 11:25 Temperature 97.7 F Pulse Rate 64 Respiratory 15 Rate Blood Pressure 127/51 [Left] ED Medical Decision Making - Lab Data Result diagrams: 11/14/18 12:07 11/14/18 12:07 - EKG Data -: EKG Interpreted by Ia EKG shows normal: sinus rhythm, axis (left axis deviation), intervals, QRS complexes (q waves to septal leads, LVH), ST-T waves Rate: normal - EKG Data When compared to previous EKG there are: no significant change Interpretation: unchanged when compared t (04/26/18) - Radiology Data Radiology results: report reviewed CT head without contrast INDICATION : Syncope, AMS. TECHNIQUE: Axial imaging performed from the skull apex through the skull base without the use of contrast. All CT scans at this location are performed using CT dose reduction for ALARA by means of automated exposure control. COMPARISON: 07/03/2018 FINDINGS: Parenchyma: No acute intracranial hemorrhage or parenchymal abnormality. Approximately 8.8 x 2.6 cm left posterior frontal-parietooccipital encephalomalacia again noted. Ventricles: Stable, age-appropriate. Soft tissues: Soft tissues including the orbits appear normal. Bilateral cataract surgery again noted. Bones: No acute osseous abnormality. Sinuses: Approximately 0.8 cm right ethmoid sinus polyp/retention cyst again noted, axial image 14. Diffuse bilateral mastoid air cell opacification with some fluid also again suspected in the left middle ear. IMPRESSION: No acute intracranial CT abnormality with age appropriate atrophy, left sided encephalomalacia, left otomastoiditis and right mastoiditis again noted, as described. - Medical Decision Making This patient presents after having a syncopal episode while getting dialysis. In the emergency department she is drowsy but is arousable. However when she is awake she is still confused at aao 2. CT of the head was done stat without contrast that does not show any bleed, shift, mass, ischemia, or any other acute process. Labs show the renal insufficiency/failure consistent with her end- stage renal disease but there is no hyperkalemia or other significant elec trolyte abnormalities. The rest of labs are unremarkable. EKG did not show any signs of ST elevation NH. Vital signs stable throughout her ED course thus far. However, the patient has been reevaluated multiple times over multiple hours and still remains drowsy and confused. For this reason the patient will be admitted to the hospital for further evaluation and treatment and was accepted for admission by the hospitalist, Dr. Galeas. - Differential Diagnosis CVA, TIA, Hyperammonemia, Seizure with post-ictal state Critical Care Time: No Critical care attestation.: If time is entered above; I have spent that time in minutes in the direct care of this critically ill patient, excluding procedure time. ED Disposition Clinical Impression: Unresponsive episode, End stage renal disease on dialysis Altered mental status Qualifiers: Altered mental status type: unspecified Qualified Code(s): R41.82 - Altered mental status, unspecified Hypertension Qualifiers: Hypertension type: essential hypertension Qualified Code(s): I10 - Essential (primary) hypertension Syncope Qualifiers: Syncope type: unspecified Qualified Code(s): R55 - Syncope and collapse Disposition: DC-09 OP ADMIT IP TO THIS HOSP Is pt being admited?: Yes Condition: Serious Time of Disposition: 13:21
[2018-11-14 12:36] LABS: Basophils # (Auto) 0.1 K/mm3 (0.0-0.1); Basophils % (Auto) 1.7 % (0.0-1.8); Eosinophils # (Auto) 0.1 K/mm3 (0.0-0.4); Eosinophils % (Auto) 3.4 % (0.0-4.3); Hematocrit 31.7 % (30.3-42.9); Hemoglobin 10.2 gm/dl (10.1-14.3); Lymphocytes # (Auto) 0.6 K/mm3 (1.2-5.4); Lymphocytes % (Auto) 17.6 % (13.4-35.0); Mean Corpuscular HGB Conc 32 % (30-34); Mean Corpuscular Volume 101 fl (79-97); Monocytes # (Auto) 0.4 K/mm3 (0.0-0.8); Monocytes % (Auto) 11.3 % (0.0-7.3); Platelet Count 137 K/mm3 (140-440); Red Blood Count 3.16 M/mm3 (3.65-5.03); Red Cell Distribution Width 17.1 % (13.2-15.2)
--- NOTE | 2018-11-14 12:37 | Cat Scan Report ---
CT head without contrast INDICATION : Syncope, AMS. TECHNIQUE: Axial imaging performed from the skull apex through the skull base without the use of con trast. All CT scans at this location are performed using CT dose reduction for ALARA by means of aut omated exposure control. COMPARISON: 07/03/2018 FINDINGS: Parenchyma: No acute intracranial hemorrhage or parenchymal abnormality. Approximately 8.8 x 2.6 cm left posterior frontal-parietooccipital encephalomalacia again noted. Ventricles: Stable, age-appropriate. Soft tissues: Soft tissues including the orbits appear normal. Bilateral cataract surgery again note d. Bones: No acute osseous abnormality. Sinuses: Approximately 0.8 cm right ethmoid sinus polyp/retention cyst again noted, axial image 14. Diffuse bilateral mastoid air cell opacification with some fluid also again suspected in the left mid dle ear. IMPRESSION: No acute intracranial CT abnormality with age appropriate atrophy, left sided encephaloma lacia, left otomastoiditis and right mastoiditis again noted, as described. Signer Name: Crystal Boyd Signed: 11/14/2018 12:32 PM Workstation Name: [id number]
[2018-11-14 12:56] LABS: Calcium 8.6 mg/dL (8.4-10.2)
[2018-11-14 13:24] LABS: Albumin 4.4 g/dL (3.9-5)
[2018-11-14 13:31] LABS: Alanine Aminotransferase < 5 units/L (7-56); Bilirubin,Direct < 0.2 mg/dL (0-0.2)
[2018-11-14] MEDS ORDERED: LABETALOL HCL 300 MG PO SCH (20:30)
[2018-11-14] MEDS ORDERED: ACETAMINOPHEN 325 MG TAB PO PRN (20:38)
[2018-11-14] MEDS ORDERED: ONDANSETRON 4 MG/2 ML INJ IV PRN (20:38)
[2018-11-14] MEDS ORDERED: HYDROmorphone 1 MG/1 ML INJ IV PRN (20:38)
[2018-11-14] MEDS ORDERED: FAMOTIDINE 10 MG TAB PO SCH (22:00)
[2018-11-14] MEDS: CLOPIDOGREL 75 MG TAB PO SCH (22:26)
[2018-11-14] MEDS: PANTOPRAZOLE 40 MG TAB PO SCH (22:27)
[2018-11-14] MEDS: LOSARTAN 50 MG TAB PO SCH (22:29)
--- NOTE | 2018-11-14 23:41 | XRay Report ---
PELVIS 1 VIEW(S) INDICATION / CLINICAL INFORMATION: hip pain COMPARISON: 10/25/17 FINDINGS: BONES / JOINT(S): No acute fracture or subluxation. Mild bilateral hip joint space narrowing is uncha nged. Patient is subjectively osteopenic. SOFT TISSUES: Soft tissue stranding over the lateral aspect of the right hip. ADDITIONAL FINDINGS: None. Signer Name: Pushpa Mirza MD Signed: 11/14/2018 11:37 PM Workstation Name: [id number]
--- NOTE | 2018-11-15 07:40 | Event Note ---
Date: 11/14/18 See H/p in reports Syncope ESRD
[2018-11-15 08:58] LABS: Hematocrit 30.2 % (30.3-42.9); Hemoglobin 9.7 gm/dl (10.1-14.3); Mean Corpuscular HGB Conc 32 % (30-34); Mean Corpuscular Volume 101 fl (79-97); Platelet Count 147 K/mm3 (140-440); Red Blood Count 2.99 M/mm3 (3.65-5.03)
[2018-11-15 09:00] LABS: BUN/Creatinine Ratio 5; Blood Urea Nitrogen 27 mg/dL (7-17); Calcium 8.4 mg/dL (8.4-10.2); Hemolysis Index 11
[2018-11-15 09:01] LABS: Alanine Aminotransferase < 5 units/L (7-56)
--- NOTE | 2018-11-15 09:04 | History and Physical Report ---
CHIEF COMPLAINT: Passed out after receiving 1-1/2 hours of dialysis. HISTORY OF PRESENT ILLNESS: A 72-year-old female sent from the dialysis clinic for passing out after 1-1/2 hours of dialysis. The patient also was bit hypotensive 80/39, but improved while in the Emergency Room. The patient is drowsy. The patient has had severe end-stage renal disease, coronary artery disease, CHF and the patient is on dialysis on Saturday, Saturday and Saturday. PAST MEDICAL HISTORY: Significant for diabetes, hypertension and end-stage renal disease. PAST SURGICAL HISTORY: Right AKA, coronary stents, AV fistula. SOCIAL HISTORY: Smokes a pack a day. CURRENT MEDICATIONS: On the chart. FAMILY HISTORY: Hypertension. REVIEW OF SYSTEMS: Significant for syncope. PHYSICAL EXAMINATION: GENERAL: Elderly female, cooperative during the examination. VITAL SIGNS: Blood pressure 118/43, temperature 98, pulse 68, respirations 18. HEENT: Unremarkable. Pupils equal and reactive. NECK: Supple, no lymphadenopathy, no thyromegaly. LUNGS: Clear to auscultation and percussion. Good air entry. CARDIOVASCULAR SYSTEM: S1, S2 heard. No gallop, no murmur, no rub. Apical impulse in left fifth intercostal space and midclavicular line. ABDOMEN: Soft and benign. No hepatosplenomegaly. No guarding, no rigidity. Hernial orifices are normal. EXTREMITIES: Good pedal pulses. No pedal edema. CENTRAL NERVOUS SYSTEM: No focal deficits. LABORATORY DATA: Significant for white count of 3500, H and H of 10.2 and 31.7, platelet count of 137,000. Sodium is 135, potassium is 4.0, chloride is 97.5, BUN and creatinine is 18 and 4.1. EKG shows sinus rhythm, heart rate of 67 per minute. Labs are mentioned already. Chest x-ray, no acute findings. Head CT shows no acute intracranial abnormalities. Left-sided encephalomalacia. Left otomastoiditis and right mastoiditis. ASSESSMENT AND PLAN: 1. Syncope. Syncope workup. Carotid duplex scan ordered. Also, echocardiogram ordered. 2. End-stage renal disease. Continue hemodialysis as per schedule. 3. Coronary artery disease. Continue Plavix. 4. Hyperlipidemia. Continue statins. 5. Hypertension. Continue antihypertensives. 6. Depression. Continue Lexapro. 7. Peripheral neuropathy. Continue gabapentin. 8. Deep venous thrombosis prophylaxis, heparin 5000 q. 12. In summary, the patient has syncope, end-stage renal disease, hypertension, GERD, peripheral neuropathy, depression and coronary artery disease. JOB# [id number] KLAUS/KAREN GALVEZ
[2018-11-15 10:30] LABS: Total Cells Counted 100
[2018-11-15 10:31] LABS: Ovalocytes Few; Platelet Estimate Consistent w Auto
--- NOTE | 2018-11-15 11:47 | Progress Note ---
Assessment and Plan - Patient Problems (1) Altered mental status Current Visit: Yes Status: Acute Qualifiers: Altered mental status type: unspecified Qualified Code(s): R41.82 - Altered mental status, unspecified Plan to address problem: Not sure baseline. Patient still appears to be slow to respond today. This could be secondary to previous syncopal episode. Hypotension. Blood pressure is only improving right now. We'll continue to hold antihypertensives and see how patient responds. (2) ESRD (end stage renal disease) on dialysis Current Visit: Yes Status: Acute Plan to address problem: We'll continue hemodialysis Saturday. (3) HTN (hypertension) Current Visit: Yes Status: Acute Qualifiers: Hypertension type: essential hypertension Qualified Code(s): I10 - Essential (primary) hypertension Plan to address problem: Continue to hold antihypertensives for now until patient's blood pressure returns to normal tension (4) Syncope Current Visit: Yes Status: Acute Qualifiers: Syncope type: unspecified Qualified Code(s): R55 - Syncope and collapse Plan to address problem: CT negative most likely response orthostatic hypotension vasovagal. From floor removal and blood pressure medications. Appears to be improving. (5) CAD (coronary artery disease) Current Visit: No Status: Acute Plan to address problem: She remains chest pain-free continue present medical management. (6) Diabetes Current Visit: No Status: Chronic Qualifiers: Diabetes mellitus type: type 2 Diabetes mellitus alf insulin use: without alf use Diabetes mellitus complication status: with kidney complications Diabetes mellitus complication detail: with chronic kidney disease Chronic kidney disease stage: on chronic dialysis Qualified Code(s): E11.22 - Type 2 diabetes mellitus with diabetic chronic kidney disease; N18.6 - End stage renal disease; Z99.2 - Dependence on renal dialysis Plan to address problem: Eric as optimal control blood pressure. Would not be too aggressive not eating as well. We'll discuss with family about her baseline. History Interval history: Patient 72-year-old female had episode of syncope at hemodialysis unit. Patient was hypotensive at the time. Upon presentation was also hypertensive. Patient has a past medical history of CVA, coronary disease, congestive heart failure, diabetes, hypertension and end-stage renal disease. Had CT scan upon presentation head that was negative also pulmonary x-ray no fluid no pneumonia. No evidence of infection. Patient today still appears somewhat slow to respond however states she feels okay. Not sure of her baseline. She to call family to see what patient's baseline is. Hospitalist Physical - Constitutional Vitals: Temp Pulse Resp BP Pulse Ox 98.2 F 63 20 126/41 99 11/15/18 07:59 11/15/18 07:59 11/15/18 07:59 11/15/18 07:59 11/15/18 07:59 General appearance: Present: no acute distress, well-nourished - EENT Eyes: Present: PERRL, EOM intact ENT: hearing intact, clear oral mucosa, dentition normal - Neck Neck: Present: supple, normal ROM - Respiratory Respiratory: bilateral: CTA - Cardiovascular Rhythm: regular Peripheral Pulses: within normal limits - Abdominal General gastrointestinal: soft, non-tender, non-distended, normal bowel sounds - Integumentary Integumentary: Present: clear, warm, dry - Psychiatric Psychiatric: appropriate mood/affect, other (memory memory appears to be intact difficult to determine if patient's cognition is stable. Slow to respond not sure baseline.) - Neurologic Neurologic: CNII-XII intact, moves all extremities Results - Labs CBC & Chem 7: 11/15/18 08:17 11/15/18 08:17 Labs: Laboratory Last Values WBC 3.1 K/mm3 (4.5-11.0) L 11/15/18 08:17 RBC 2.99 M/mm3 (3.65-5.03) L 11/15/18 08:17 Hgb 9.7 gm/dl (10.1-14.3) L 11/15/18 08:17 Hct 30.2 % (30.3-42.9) L 11/15/18 08:17 MCV 101 fl (79-97) H 11/15/18 08:17 MCH 33 pg (28-32) H 11/15/18 08:17 MCHC 32 % (30-34) 11/15/18 08:17 RDW 18.0 % (13.2-15.2) H 11/15/18 08:17 Plt Count 147 K/mm3 (140-440) 11/15/18 08:17 Lymph % (Auto) 17.6 % (13.4-35.0) 11/14/18 12:07 [place] % (Auto) 11.3 % (0.0-7.3) H 11/14/18 12:07 Eos % (Auto) 3.4 % (0.0-4.3) 11/14/18 12:07 Baso % (Auto) Risk Officer 11/15/18 08:17 Lymph # 0.6 K/mm3 (1.2-5.4) L 11/14/18 12:07 [place]ug[place] # 0.4 K/mm3 (0.0-0.8) 11/14/18 12:07 Eos # 0.1 K/mm3 (0.0-0.4) 11/14/18 12:07 Baso # 0.1 K/mm3 (0.0-0.1) 11/14/18 12:07 Add Manual Diff Complete 11/15/18 08:17 Total Counted 100 11/15/18 08:17 Seg Neutrophils % 66.0 % (40.0-70.0) 11/14/18 12:07 Seg Neuts % (Manual) 50.0 % (40.0-70.0) 11/15/18 08:17 0 % 11/15/18 08:17 34.0 % (13.4-35.0) 11/15/18 08:17 Reactive Lymphs % (Man) 0 % 11/15/18 08:17 8.0 % (0.0-7.3) H 11/15/18 08:17 4.0 % (0.0-4.3) 11/15/18 08:17 4.0 % (0.0-1.8) H 11/15/18 08:17 0 % 11/15/18 08:17 0 % 11/15/18 08:17 0 % 11/15/18 08:17 0 % 11/15/18 08:17 Nucleated RBC % Not Reportable 11/15/18 08:17 Seg Neutrophils # 2.3 K/mm3 (1.8-7.7) 11/14/18 12:07 Seg Neutrophils # Man 1.6 K/mm3 (1.8-7.7) L 11/15/18 08:17 Band Neutrophils # 0.0 K/mm3 11/15/18 08:17 1.1 K/mm3 (1.2-5.4) L 11/15/18 08:17 Abs React Lymphs (Man) 0.0 K/mm3 11/15/18 08:17 0.2 K/mm3 (0.0-0.8) 11/15/18 08:17 0.1 K/mm3 (0.0-0.4) 11/15/18 08:17 0.1 K/mm3 (0.0-0.1) 11/15/18 08:17 0.0 K/mm3 11/15/18 08:17 0.0 K/mm3 11/15/18 08:17 0.0 K/mm3 11/15/18 08:17 Blast Cells # 0.0 K/mm3 11/15/18 08:17 WBC Morphology Not Reportable 11/15/18 08:17 Hypersegmented Neuts Not Reportable 11/15/18 08:17 Hyposegmented Neuts Not Reportable 11/15/18 08:17 Hypogranular Neuts Not Reportable 11/15/18 08:17 Not Reportable 11/15/18 08:17 Not Reportable 11/15/18 08:17 Not Reportable 11/15/18 08:17 Not Reportable 11/15/18 08:17 Not Reportable 11/15/18 08:17 Not Reportable 11/15/18 08:17 Consistent w auto 11/15/18 08:17 Not Reportable 11/15/18 08:17 Plt Clumps, EDTA Not Reportable 11/15/18 08:17 Not Reportable 11/15/18 08:17 Not Reportable 11/15/18 08:17 Not Reportable 11/15/18 08:17 Plt Morphology Comment Not Reportable 11/15/18 08:17 RBC Morphology Not Reportable 11/15/18 08:17 Dimorphic RBCs Not Reportable 11/15/18 08:17 Few 11/15/18 08:17 Not Reportable 11/15/18 08:17 Not Reportable 11/15/18 08:17 Not Reportable 11/15/18 08:17 Not Reportable 11/15/18 08:17 Not Reportable 11/15/18 08:17 Not Reportable 11/15/18 08:17 Not Reportable 11/15/18 08:17 Not Reportable 11/15/18 08:17 Not Reportable 11/15/18 08:17 Not Reportable 11/15/18 08:17 Few 11/15/18 08:17 Not Reportable 11/15/18 08:17 Not Reportable 11/15/18 08:17 Not Reportable 11/15/18 08:17 Not Reportable 11/15/18 08:17 Not Reportable 11/15/18 08:17 Not Reportable 11/15/18 08:17 Not Reportable 11/15/18 08:17 Acanthocytes (Spur) Not Reportable 11/15/18 08:17 Rouleaux Not Reportable 11/15/18 08:17 Not Reportable 11/15/18 08:17 Not Reportable 11/15/18 08:17 Not Reportable 11/15/18 08:17 Not Reportable 11/15/18 08:17 Hem Pathologist Commnt No 11/15/18 08:17 Sodium 136 mmol/L (137-145) L 11/15/18 08:17 Potassium 4.7 mmol/L (3.6-5.0) 11/15/18 08:17 Chloride 98.3 mmol/L (98-107) 11/15/18 08:17 Carbon Dioxide 22 mmol/L (22-30) 11/15/18 08:17 20 mmol/L 11/15/18 08:17 BUN 27 mg/dL (7-17) H 11/15/18 08:17 5.6 mg/dL (0.7-1.2) H 11/15/18 08:17 Estimated GFR 9 ml/min 11/15/18 08:17 5 % 11/15/18 08:17 Glucose 87 mg/dL (65-100) 11/15/18 08:17 POC Glucose 88 (70-105) 11/14/18 17:23 4.9 % (4-6) 11/14/18 12:07 Calcium 8.4 mg/dL (8.4-10.2) 11/15/18 08:17 0.30 mg/dL (0.1-1.2) 11/15/18 08:17 < 0.2 mg/dL (0-0.2) 11/14/18 12:07 0.2 mg/dL 11/14/18 12:07 AST 10 units/L (5-40) 09/28/19 08:17 ALT < 5 units/L (7-56) L 11/15/18 08:17 169 units/L (35-129) H 11/15/18 08:17 32.0 umol/L (25-60) 11/14/18 12:07 7.0 g/dL (6.3-8.2) 11/15/18 08:17 4.0 g/dL (3.9-5) 11/15/18 08:17 1.3 % 11/15/18 08:17 TSH 3.660 mlU/mL (0.270-4.200) 11/14/18 12:07 Plasma/Serum Alcohol < 0.01 % (0-0.07) 11/14/18 12:07 Active Medications - Current Medications Current Medications: Generic Name Dose Route Start Last Admin Trade Name Freq PRN Reason Stop Dose Admin Acetaminophen 650 mg 11/14/18 20:38 11/14/18 22:27 Tylenol PO 650 mg Q4H PRN Administration Pain MILD(1-3)/Fever >100.5/QUINONEZ Amlodipine Besylate 5 mg 11/15/18 10:00 Norvasc PO QDAY [facility] Atorvastatin Calcium 20 mg 11/14/18 22:00 11/14/18 22:27 Lipitor PO 20 mg HS ANNI Administration Clopidogrel Bisulfate 75 mg 11/14/18 22:00 11/14/18 22:26 Plavix PO 75 mg QDAY ANNI Administration Escitalopram Oxalate 10 mg 11/15/18 10:00 Lexapro PO DAILY [facility] Gabapentin 300 mg 11/15/18 10:00 Neurontin PO DAILY [facility] Heparin Sodium (Porcine) 5,000 unit 11/15/18 10:00 Heparin SUB-Q Q12HR [facility] Hydromorphone HCl 0.5 mg 11/14/18 20:38 Dilaudid IV Q3H PRN Pain , Severe (7-10) Labetalol HCl 300 mg 11/14/18 22:00 11/14/18 22:26 Normodyne PO 300 mg QDAY ANNI Administration Losartan Potassium 50 mg 11/14/18 21:00 11/14/18 22:29 Cozaar PO 50 mg QDAY ANNI Administration Ondansetron HCl 4 mg 11/14/18 20:38 Zofran IV Q8H PRN Nausea And Vomiting Pantoprazole Sodium 40 mg 11/14/18 22:00 11/14/18 22:27 Protonix PO 40 mg BID ANNI Administration Sevelamer Carbonate 1,600 mg 11/15/18 08:00 Renvela PO TIDWM ANNI Sodium Chloride 10 ml 11/14/18 22:00 11/14/18 22:37 Sodium Chloride Flush Syringe 10 Ml IV 10 ml BID ANNI Administration Sodium Chloride 10 ml 11/14/18 20:38 Sodium Chloride Flush Syringe 10 Ml IV PRN PRN LINE FLUSH
--- NOTE | 2018-11-15 11:57 | Consultation ---
History of Present Illness - Reason for Consult Consult date: 11/15/18 Requesting physician: MARTHA CULP - History of Present Illness 72-year-old -[place] female presented to the emergency department yesterday by EMS from her dialysis clinic after she had a syncopal episode after receiving about 1.5 hours of dialysis. She had some hypotension with EMS with a BP of 80/39 but it has improved. She has a past medical history of CVA with residual right-sided deficits, coronary artery disease, CHF, end-stage renal disease on hemodialysis on Saturday/Saturday/Saturday, diabetes and hypertension. She undergoes dialysis under our care on MWF schedule at [facility]. Patient currently denies any shortness of breath. No nausea or vomiting. Past History Past Medical History: CAD, dialysis, hypertension, stroke Past Surgical History: Other (history of creation of AV fistula) Social history: other (patient is currently a custodial resident) Medications and Allergies Allergies Allergy/AdvReac Type Severity Reaction Status Date / Time No Known Allergies Allergy Verified 06/14/13 10:48 Home Medications Medication Instructions Recorded Confirmed Last Taken Type Clopidogrel [Plavix] 75 mg PO QDAY 04/21/13 11/14/18 04/17/18 09:00 History Escitalopram [Lexapro] 10 mg PO DAILY 03/16/14 11/14/18 04/17/18 09:00 History Sevelamer Carbonate [Renvela] 1,600 mg PO TIDWM 09/05/14 11/14/18 04/17/18 09:00 History AtorvaSTATin [Lipitor] 20 mg PO DAILY 09/28/14 11/14/18 04/17/18 09:00 History Labetalol HCl [Labetalol 300mg TAB] 300 mg PO DAILY 04/18/18 11/14/18 04/17/18 09:00 History Pantoprazole [Protonix TAB] 40 mg PO BID 15 Days #30 tablet 04/19/18 11/14/18 Unknown Rx Losartan [Cozaar] 50 mg PO QDAY 07/03/18 11/14/18 Unknown History Amlodipine Besylate [Norvasc] 5 mg PO QDAY 11/14/18 11/14/18 Unknown History Flonase 50 mcg NS BID 11/14/18 11/14/18 Unknown History Gabapentin [Neurontin] 300 mg PO DAILY 11/14/18 11/14/18 Unknown History Active Meds: Active Medications Acetaminophen (Tylenol) 650 mg PO Q4H PRN PRN Reason: Pain MILD(1-3)/Fever >100.5/QUINONEZ Last Admin: 11/14/18 22:27 Dose: 650 mg Documented by: Amlodipine Besylate (Norvasc) 5 mg PO QDAY [facility] Atorvastatin Calcium (Lipitor) 20 mg PO HS [facility] Last Admin: 11/14/18 22:27 Dose: 20 mg Documented by: Clopidogrel Bisulfate (Plavix) 75 mg PO QDAY [facility] Last Admin: 11/14/18 22:26 Dose: 75 mg Documented by: Escitalopram Oxalate (Lexapro) 10 mg PO DAILY [facility] Gabapentin (Neurontin) 300 mg PO DAILY [facility] Heparin Sodium (Porcine) (Heparin) 5,000 unit SUB-Q Q12HR [facility] Hydromorphone HCl (Dilaudid) 0.5 mg IV Q3H PRN PRN Reason: Pain , Severe (7-10) Labetalol HCl (Normodyne) 300 mg PO QDAY [facility] Last Admin: 11/14/18 22:26 Dose: 300 mg Documented by: Losartan Potassium (Cozaar) 50 mg PO QDAY [facility] Last Admin: 11/14/18 22:29 Dose: 50 mg Documented by: Ondansetron HCl (Zofran) 4 mg IV Q8H PRN PRN Reason: Nausea And Vomiting Pantoprazole Sodium (Protonix) 40 mg PO BID [facility] Last Admin: 11/14/18 22:27 Dose: 40 mg Documented by: Sevelamer Carbonate (Renvela) 1,600 mg PO TIDWM [facility] Sodium Chloride (Sodium Chloride Flush Syringe 10 Ml) 10 ml IV BID [facility] Last Admin: 11/14/18 22:37 Dose: 10 ml Documented by: Sodium Chloride (Sodium Chloride Flush Syringe 10 Ml) 10 ml IV PRN PRN PRN Reason: LINE FLUSH Review of Systems ROS unobtainable: due to mental status (difficult to obtain because of patient's mental status) Exam - Vital Signs Vital signs: Vital Signs Pulse Resp 64 14 11/14/18 11:18 11/14/18 11:18 - General Appearance General appearance: well-developed, well-nourished, appears stated age EENT: PERRL, mucous membranes moist Neck: Present: neck supple, trachea midline, Other (left IJ PermCath in place). Absent: JVD/HJR, Masses Respiratory: Clear to Ascultation Heart: regular, normal heart rate, S1S2, no murmurs Gastrointestinal: Present: normal, normoactive bowel sounds Integumentary: other (right above-knee amputation. 1+ edema on the left. AV graft in her right upper arm. Good bruit and thrill.) Results - Lab Results 11/15/18 08:17 11/15/18 08:17 Most recent lab results Calcium 8.4 mg/dL (8.4-10.2) 11/15/18 08:17 Assessment and Plan Impression * End-stage renal disease on maintenance hemodialysis * Syncope * History of hypertension * CVA * Coronary artery disease * Peripheral vascular disease Recommendations * No urgent indication for dialysis for today. Patient had partial dialysis yesterday * Volume status and electrolytes are all acceptable * Plan to keep her on MWF schedule as outpatient * Adjust diet and meds were ESRD state * Syncope workup as per primary team * Procrit with dialysis * Binders with meals * Avoid nephrotoxins * Thank you very much for the consultation. Shall follow along with you
[2018-11-15] MEDS: CLOPIDOGREL 75 MG TAB PO SCH (12:34)
[2018-11-15] MEDS: PANTOPRAZOLE 40 MG TAB PO SCH ×2 (12:35→21:26)
[2018-11-15] MEDS: GABAPENTIN 300 MG CAP PO SCH (12:35)
[2018-11-15] MEDS: ESCITALOPRAM 10 MG TAB PO SCH (12:35)
[2018-11-15] MEDS: amLODIPine 5 MG TAB PO SCH (12:35)
[2018-11-15] MEDS: HEPARIN 5,000 UNIT/1 ML VIAL SUB-Q SCH ×2 (12:35→21:26)
[2018-11-15] MEDS: LOSARTAN 50 MG TAB PO SCH (12:35)
[2018-11-15] MEDS: SEVELAMER CARBONATE 800 MG TAB PO SCH ×3 (12:46→17:16)
[2018-11-16] MEDS: CLOPIDOGREL 75 MG TAB PO SCH (09:44)
[2018-11-16] MEDS: amLODIPine 5 MG TAB PO SCH (09:44)
[2018-11-16] MEDS: PANTOPRAZOLE 40 MG TAB PO SCH (09:44)
[2018-11-16] MEDS: SEVELAMER CARBONATE 800 MG TAB PO SCH (09:45)
[2018-11-16] MEDS: ESCITALOPRAM 10 MG TAB PO SCH (09:45)
[2018-11-16] MEDS: LOSARTAN 50 MG TAB PO SCH (09:45)
[2018-11-16] MEDS: GABAPENTIN 300 MG CAP PO SCH (09:45)
[2018-11-16] MEDS: HEPARIN 5,000 UNIT/1 ML VIAL SUB-Q SCH (09:46)
--- NOTE | 2018-11-16 11:59 | Progress Note ---
Assessment and Plan Impression * End-stage renal disease on maintenance hemodialysis * Syncope * History of hypertension * CVA * Coronary artery disease * Peripheral vascular disease Recommendations * No urgent indication for dialysis for today. * Volume status and electrolytes are all acceptable * Schedule patient for dialysis for tomorrow and keep her on MWF schedule as outpatient * Adjust diet and meds were ESRD state * Syncope workup as per primary team * Procrit with dialysis * Binders with meals * Avoid nephrotoxins * Patient does have AV graft in her right upper arm. States that it has just started to be used. Shall try to use it with 17-gauge needle tomorrow Subjective Date of service: 11/16/18 Interval history: Patient is comfortable today. Denies any shortness of breath. No nausea vomiting or diarrhea Objective - Vital Signs Vital signs: Vital Signs - 12hr 11/16/18 11/16/18 11/16/18 06:00 06:01 06:03 Temperature 97.7 F Pulse Rate 63 62 Respiratory 18 Rate Blood Pressure 123/47 O2 Sat by Pulse 93 Oximetry 11/16/18 11/16/18 11/16/18 07:36 09:44 09:45 Temperature 98.4 F Pulse Rate 62 62 62 Respiratory 18 Rate Blood Pressure 133/41 133/41 133/41 O2 Sat by Pulse 93 Oximetry - General Appearance General appearance: well-developed, well-nourished, appears stated age EENT: PERRL, mucous membranes moist Neck: no JVD, no thyromegaly, no carotid bruit, supple, other (IJ PermCath in place) Respiratory: Present: Clear to Ascultation Cardiology: regular, normal heart rate, S1S2, no murmurs Gastrointestinal: normal, normoactive bowel sounds Integumentary: other (right AKA. 1+ edema on the left side. Patient also does have an AV graft in her right upper arm. Good bruit and thrill.) - Lab 11/15/18 08:17 11/15/18 08:17 Most recent lab results Calcium 8.4 mg/dL (8.4-10.2) 11/15/18 08:17 Medications & Allergies - Medications Allergies/Adverse Reactions: Allergies No Known Allergies Allergy (Verified 06/14/13 10:48) Home Medications: Home Medications Medication Instructions Recorded Confirmed Last Taken Type Clopidogrel [Plavix] 75 mg PO QDAY 04/21/13 11/14/18 04/17/18 09:00 History Escitalopram [Lexapro] 10 mg PO DAILY 03/16/14 11/14/18 04/17/18 09:00 History Sevelamer Carbonate [Renvela] 1,600 mg PO TIDWM 09/05/14 11/14/18 04/17/18 09:00 History AtorvaSTATin [Lipitor] 20 mg PO DAILY 09/28/14 11/14/18 04/17/18 09:00 History Labetalol HCl [Labetalol 300mg TAB] 300 mg PO DAILY 04/18/18 11/14/18 04/17/18 09:00 History Pantoprazole [Protonix TAB] 40 mg PO BID 15 Days #30 tablet 04/19/18 11/14/18 Unknown Rx Losartan [Cozaar] 50 mg PO QDAY 07/03/18 11/14/18 Unknown History Amlodipine Besylate [Norvasc] 5 mg PO QDAY 11/14/18 11/14/18 Unknown History Flonase 50 mcg NS BID 11/14/18 11/14/18 Unknown History Gabapentin [Neurontin] 300 mg PO DAILY 11/14/18 11/14/18 Unknown History Active Medications: Generic Name Dose Route Start Last Admin Trade Name Freq PRN Reason Stop Dose Admin Acetaminophen 650 mg 11/14/18 20:38 11/14/18 22:27 Tylenol PO 650 mg Q4H PRN Administration Pain MILD(1-3)/Fever >100.5/QUINONEZ Amlodipine Besylate 5 mg 11/15/18 10:00 11/16/18 09:44 Norvasc PO 5 mg QDAY ANNI Administration Atorvastatin Calcium 20 mg 11/14/18 22:00 11/15/18 21:26 Lipitor PO 20 mg HS ANNI Administration Clopidogrel Bisulfate 75 mg 11/14/18 22:00 11/16/18 09:44 Plavix PO 75 mg QDAY ANNI Administration Escitalopram Oxalate 10 mg 11/15/18 10:00 11/16/18 09:45 Lexapro PO 10 mg DAILY ANNI Administration Gabapentin 300 mg 11/15/18 10:00 11/16/18 09:45 Neurontin PO 300 mg DAILY ANNI Administration Heparin Sodium (Porcine) 5,000 unit 11/15/18 10:00 11/16/18 09:46 Heparin SUB-Q 5,000 unit Q12HR ANNI Administration Hydromorphone HCl 0.5 mg 11/14/18 20:38 Dilaudid IV Q3H PRN Pain , Severe (7-10) Labetalol HCl 300 mg 11/14/18 22:00 11/16/18 09:45 Normodyne PO 300 mg QDAY ANNI Administration Losartan Potassium 50 mg 11/14/18 21:00 11/16/18 09:45 Cozaar PO 50 mg QDAY ANNI Administration Ondansetron HCl 4 mg 11/14/18 20:38 Zofran IV Q8H PRN Nausea And Vomiting Pantoprazole Sodium 40 mg 11/14/18 22:00 11/16/18 09:44 Protonix PO 40 mg BID ANNI Administration Sevelamer Carbonate 1,600 mg 11/15/18 08:00 11/16/18 09:45 Renvela PO 1,600 mg TIDWM ANNI Administration Sodium Chloride 10 ml 11/14/18 22:00 11/16/18 09:46 Sodium Chloride Flush Syringe 10 Ml IV 10 ml BID ANNI Administration Sodium Chloride 10 ml 11/14/18 20:38 11/15/18 21:29 Sodium Chloride Flush Syringe 10 Ml IV 10 ml PRN PRN Administration LINE FLUSH
[2018-11-16] MEDS ORDERED: SODIUM CHLORIDE 0.9% 100 ML IV PRN (12:00)
--- NOTE | 2018-11-16 12:51 | Discharge Summary ---
Providers - Providers Date of Admission: 11/14/18 13:21 Date of discharge: 11/16/18 Attending physician: MARK ANTHONY FAUSTIN 11/14/18 15:45 Speech Therapy Evaluation and Treat [CONS] Routine Reason For Exam: failed swallow 11/14/18 20:38 Consult to Physician [CONS] Routine Comment: Consulting Provider: MIRYAM ARIZA Physician Instructions: Reason For Exam: esrd Primary care physician: PAUL MORALES MD Hospitalization Condition: Good Hospital course: Patient 72 years old presented with altered mental status near syncope after hemodialysis. Patient found to be hypotensive. At that time was most likely secondary to volume changes. After 24 hours fluid resuscitation patient's back to baseline alert oriented 3. He shouldn't did not require any urgent hemodialysis. Volume status stable. Pressure now stable. Disposition: - TO HOME OR SELFCARE - Discharge Diagnoses (1) Altered mental status Status: Resolved Qualifiers: Altered mental status type: unspecified Qualified Code(s): R41.82 - Altered mental status, unspecified Comment: Considered to volume changes at dialysis. Hypotension. Resolved. (2) ESRD (end stage renal disease) on dialysis Status: Acute (3) HTN (hypertension) Status: Acute Qualifiers: Hypertension type: essential hypertension Qualified Code(s): I10 - Essential (primary) hypertension (4) Syncope Status: Acute Qualifiers: Syncope type: unspecified Qualified Code(s): R55 - Syncope and collapse (5) CAD (coronary artery disease) Status: Acute (6) Diabetes Status: Chronic Qualifiers: Diabetes mellitus type: type 2 Diabetes mellitus jail insulin use: without jail use Diabetes mellitus complication status: with kidney complications Diabetes mellitus complication detail: with chronic kidney disease Chronic kidney disease stage: on chronic dialysis Qualified Code(s): E11.22 - Type 2 diabetes mellitus with diabetic chronic kidney disease; N18.6 - End stage renal disease; Z99.2 - Dependence on renal dialysis Core Measure Documentation - Palliative Care Palliative Care/ Comfort Measures: Not Applicable - Core Measures Any of the following diagnoses?: none Exam - Constitutional Vitals: Temp Pulse Resp BP Pulse Ox 98.6 F 63 18 149/44 100 11/16/18 11:53 11/16/18 11:53 11/16/18 11:53 11/16/18 11:53 11/16/18 11:53 General appearance: Present: no acute distress, well-nourished - EENT Eyes: Present: PERRL ENT: hearing intact, clear oral mucosa - Neck Neck: Present: supple, normal ROM - Respiratory Respiratory effort: normal Respiratory: bilateral: CTA - Cardiovascular Heart Sounds: Present: S1 & S2. Absent: rub, click - Extremities Extremities: pulses symmetrical, No edema Peripheral Pulses: within normal limits - Abdominal General gastrointestinal: Present: soft, non-tender, non-distended, normal bowel sounds Female genitourinary: Present: normal - Integumentary Integumentary: Present: clear, warm, dry - Musculoskeletal Musculoskeletal: gait normal, strength equal bilaterally - Psychiatric Psychiatric: appropriate mood/affect, intact judgment & insight - Neurologic Neurologic: CNII-XII intact, moves all extremities Plan Activity: up only with assistance, fall precautions Weight Bearing Status: Partial Weight Bearing Diet: renal Special Instructions: restrict fluid intake to (2.0) Follow up with: PRIMARY CARE, [Referring] - 3-5 Days
[2018-11-16 16:43] VITALS: BP 157/58
== END 2018-11-16 17:14 | disposition home or self-care (01) ==
LOC: ED 11:11 → 4A 13:21
PROVIDERS: ADMIT Internal Medicine; ATTEND Internal Medicine
DX: R55 Syncope and collapse (principal); I12.0 Hypertensive chronic kidney disease with stage 5 chronic kidney disease or end stage renal disease; N18.6 End stage renal disease; E11.22 Type 2 diabetes mellitus with diabetic chronic kidney disease; I25.10 Atherosclerotic heart disease of native coronary artery without angina pectoris; R41.82 Altered mental status, unspecified; E78.5 Hyperlipidemia, unspecified; F32.9 Major depressive disorder, single episode, unspecified; G62.9 Polyneuropathy, unspecified; F17.210 Nicotine dependence, cigarettes, uncomplicated; Z79.01 Long term (current) use of anticoagulants; Z99.2 Dependence on renal dialysis; Z95.1 Presence of aortocoronary bypass graft; Z89.611 Acquired absence of right leg above knee; Z86.73 Personal history of transient ischemic attack (TIA), and cerebral infarction without residual deficits
CPT/HCPCS: 36415; 70450; 72170; 80048; 80053; 80076; 82140; 82962; 83036; 84443; 85007; 85025; 92610; 93005; 93010; 93306; 96372; 99284; A9270; G0378; J1644; 80320; G0480

== ENCOUNTER 2018-12-05 21:40 | Emergency (ER) | payer MEDICARE ==
[2018-12-06] MEDS ORDERED: MORPHINE IV STA (00:28)
[2018-12-06] MEDS ORDERED: ZOFRAN IV STA (00:28)
--- NOTE | 2018-12-06 01:02 | XRay Report ---
Left shoulder 3 views INDICATION: Left shoulder pain IMPRESSION: Moderately developed degenerative change involving the left AC joint. Signer Name: Anupam Robertson MD Signed: 12/06/2018 12:57 AM Workstation Name: [employer]
[2018-12-06] MEDS ORDERED: ZOFRAN ODT ONE (01:04)
[2018-12-06] MEDS ORDERED: ZOFRAN IM STA (01:18)
[2018-12-06] MEDS ORDERED: ZOFRAN ODT PO STA (01:47)
[2018-12-06] MEDS ORDERED: MORPHINE IM ONE (01:47)
--- NOTE | 2018-12-06 01:56 | Emergency Department Report ---
Upper Extremity - HPI Chief Complaint: Pain General Stated Complaint: LEFT SHOULDER PAIN Time Seen by Provider: 12/05/18 23:42 Upper Extremity: Left Shoulder Occurred When: 1 Day Mechanism: Other Severity: mild, moderate Symptoms: Yes Pain with Movement, Yes Limited Range of Movement, No Deformity, No Numbness, No Weakness, No Swelling, No Bruising/Ecchymosis, No Laceration or Abrasion ED Review of Systems ROS: Stated complaint: LEFT SHOULDER PAIN Other details as noted in HPI Comment: All other systems reviewed and negative ED Past Medical Hx - Past Medical History Previous Medical History?: Yes Hx Hypertension: Yes Hx CVA: Yes Hx Heart Attack/AMI: Yes Hx Congestive Heart Failure: No Hx Diabetes: Yes (NIDDM, not currently on medication) Hx Deep Vein Thrombosis: No Hx Pulmonary Embolism: No Hx GERD: No Hx Liver Disease: No Hx Renal Disease: Yes (ESRD) Hx Sickle Cell Disease: No Hx Arthritis: No Hx Headaches / Migraines: Yes Hx Seizures: No Hx Kidney Stones: No Hx Psychiatric Treatment: No Hx Asthma: No Hx COPD: No Hx Tuberculosis: No Hx Dementia: No Hx HIV: No Additional medical history: gastroparesis - Surgical History Past Surgical History?: Yes Hx Coronary Stent: Yes Hx Open Heart Surgery: No Hx Pacemaker: No Hx Internal Defibrillator: No Hx Cholecystectomy: No Hx Appendectomy: No Hx Breast Surgery: No Additional Surgical History: Right AKA - Social History Smoking Status: Never Smoker Substance Use Type: None - Medications Home Medications: Home Medications Medication Instructions Recorded Confirmed Last Taken Type Clopidogrel [Plavix] 75 mg PO QDAY 04/21/13 11/14/18 04/17/18 09:00 History Escitalopram [Lexapro] 10 mg PO DAILY 03/16/14 11/14/18 04/17/18 09:00 History Sevelamer Carbonate [Renvela] 1,600 mg PO TIDWM 09/05/14 11/14/18 04/17/18 09:00 History AtorvaSTATin [Lipitor] 20 mg PO DAILY 09/28/14 11/14/18 04/17/18 09:00 History Labetalol HCl [Labetalol 300mg TAB] 300 mg PO DAILY 04/18/18 11/14/18 04/17/18 09:00 History Pantoprazole [Protonix TAB] 40 mg PO BID 15 Days #30 tablet 04/19/18 11/14/18 Unknown Rx Losartan [Cozaar] 50 mg PO QDAY 07/03/18 11/14/18 Unknown History Amlodipine Besylate [Norvasc] 5 mg PO QDAY 11/14/18 11/14/18 Unknown History Flonase 50 mcg NS BID 11/14/18 11/14/18 Unknown History Gabapentin [Neurontin] 300 mg PO DAILY 11/14/18 11/14/18 Unknown History Upper Extremity Exam - Exam General: Vital signs noted. No distress. Alert and acting appropriately. Head and Torso: No HEENT Abnormality, No Neck Tenderness, No Chest/Lungs Abnormality, No Abdominal Tenderness, No Back Tenderness Shoulder Exam: Yes Shoulder Tenderness (tenderness to the anterior shoulder with palpation. Also to the acromioclavicular joint. No sulcus sign noted. Joint is stable.), Yes Normal Range of Motion in Shoulder, No Clavicle Tenderness, No Shoulder Deformity, No AC Joint Tenderness Arm Exam: No Arm/Humerus Tenderness, No Arm Deformity Elbow: No Elbow Tenderness, No Normal Range of Motion in Elbow, No Elbow Deformity Forearm: No Forearm Tenderness, No Forearm Deformity, No Pain with Pronation, No Pain with Supination Wrist: Yes Normal ROM in Wrist, No Wrist Tenderness, No Wrist Deformity, No Snuffbox Tenderness, No Pain with Axial Thumb Compression Hand: Yes Normal ROM in Digit(s), No Hand Tenderness, No Hand Deformity, No Digit Tenderness, No Digit(s) Deformity, No Tendon Dysfunction CMS Exam: No Broken Skin, No Normal Distal Pulses, No Normal Capillary Refill, No Normal Distal Sensation ED Course Vital Signs 12/05/18 22:50 Temperature 98.6 F Pulse Rate 67 Respiratory 23 Rate Blood Pressure 143/58 Blood Pressure 143/58 [Right] O2 Sat by Pulse 95 Oximetry ED Medical Decision Making - Radiology Data Radiology results: report reviewed X-ray shows moderate degenerative disease to the acromioclavicular joint on the left shoulder. - Medical Decision Making 72-year-old -[place] female with a known past medical history of hypertension, diabetes, end-stage renal disease requiring dialysis having a flareup of the shoulder pain. Pain is worse with range of motion related to the the arthropathy is in no recent injuries. There is no cutaneous emphysema or or bruising to the area nor is there any deformities pain is only worse with range of motion and the realm of a PE duction. The patient in the emergency department with morphine and Zofran. Due to her renal history and says his back recommend it and had to be careful with utilization of steroids due to her diabetes history. We'll recommend she follow-up with orthopedics for further evaluation and treatment options and we'll place him in a sling for comfort Critical care attestation.: If time is entered above; I have spent that time in minutes in the direct care of this critically ill patient, excluding procedure time. ED Disposition Clinical Impression: Shoulder arthritis Disposition: DC-01 TO HOME OR SELFCARE Is pt being admited?: No Does the pt Need Aspirin: No Condition: Stable Instructions: Osteoarthritis (ED), Arthralgia (ED) Referrals: PRIMARY CAREMD [Primary Care Provider] - 3-5 Days LANCE MONCADA MD [Staff Physician] - 3-5 Days
[2018-12-06] MEDS ORDERED: PERCOCET 5/325 PO STA (02:00)
[2018-12-06] MEDS ORDERED: DECADRON IM STA (02:00)
[2018-12-06] MEDS ORDERED: MORPHINE IM STA (04:00)
[2018-12-06 07:10] VITALS: BP 156/64
== END 2018-12-06 07:00 | disposition home or self-care (01) ==
LOC: ED 21:40
DX: M13.812 Other specified arthritis, left shoulder (principal); I25.2 Old myocardial infarction; E11.43 Type 2 diabetes mellitus with diabetic autonomic (poly)neuropathy; K31.84 Gastroparesis; E11.22 Type 2 diabetes mellitus with diabetic chronic kidney disease; N18.6 End stage renal disease; G43.909 Migraine, unspecified, not intractable, without status migrainosus; Z95.5 Presence of coronary angioplasty implant and graft; Z79.899 Other long term (current) drug therapy
CPT/HCPCS: 73030; 82962; 96372; 99284; J1100; J2270; J2405; Q0162

== ENCOUNTER 2018-12-06 14:02 | Inpatient (IN) | payer MEDICARE ==
--- NOTE | 2018-12-06 14:28 | Emergency Department Report ---
ED Altered Mental Status HPI - General Chief Complaint: Altered Mental Status Stated Complaint: DIFFICULTY BREATHING Time Seen by Provider: 12/06/18 14:20 Source: EMS Mode of arrival: Stretcher Limitations: Altered Mental Status - History of Present Illness Initial Comments: Patient is 72 years old female with history of CVA, end-stage renal disease on hemodialysis, diabetes hypertension and right above-knee amputation. Patient brought to the emergency room via EMS for evaluation of decreased responsiveness. Patient was seen here today for left shoulder pain. Patient received morphine for pain. Upon my examination patient is alert and oriented and answering questions appropriately. Patient denied any chest pain or shortness of breath. She also denied any headache, nausea or vomiting. No abdominal pain. MD Complaint: decreased responsiveness -: This morning Severity: moderate - Related Data Home Medications Medication Instructions Recorded Confirmed Last Taken Clopidogrel [Plavix] 75 mg PO QDAY 04/21/13 11/14/18 04/17/18 09:00 Escitalopram [Lexapro] 10 mg PO DAILY 03/16/14 11/14/18 04/17/18 09:00 Sevelamer Carbonate [Renvela] 1,600 mg PO TIDWM 09/05/14 11/14/18 04/17/18 09:00 AtorvaSTATin [Lipitor] 20 mg PO DAILY 09/28/14 11/14/18 04/17/18 09:00 Labetalol HCl [Labetalol 300mg TAB] 300 mg PO DAILY 04/18/18 11/14/18 04/17/18 09:00 Losartan [Cozaar] 50 mg PO QDAY 07/03/18 11/14/18 Unknown Amlodipine Besylate [Norvasc] 5 mg PO QDAY 11/14/18 11/14/18 Unknown Flonase 50 mcg NS BID 11/14/18 11/14/18 Unknown Gabapentin [Neurontin] 300 mg PO DAILY 11/14/18 11/14/18 Unknown Previous Rx's Medication Instructions Recorded Last Taken Type Pantoprazole [Protonix TAB] 40 mg PO BID 15 Days #30 tablet 04/19/18 Unknown Rx Acetaminophen/Codeine [Tylenol #3] 1 tab PO Q6H PRN #8 tab 12/06/18 Unknown Rx Allergies Allergy/AdvReac Type Severity Reaction Status Date / Time No Known Allergies Allergy Verified 06/14/13 10:48 ED Review of Systems ROS: Stated complaint: DIFFICULTY BREATHING Other details as noted in HPI Comment: All other systems reviewed and negative Constitutional: denies: chills, fever Respiratory: denies: cough, shortness of breath, SOB with exertion Cardiovascular: denies: chest pain Gastrointestinal: denies: abdominal pain, nausea, vomiting Musculoskeletal: denies: back pain ED Past Medical Hx - Past Medical History Hx Hypertension: Yes Hx CVA: Yes Hx Heart Attack/AMI: Yes Hx Congestive Heart Failure: No Hx Diabetes: Yes (NIDDM, not currently on medication) Hx Deep Vein Thrombosis: No Hx Pulmonary Embolism: No Hx GERD: No Hx Liver Disease: No Hx Renal Disease: Yes (ESRD) Hx Sickle Cell Disease: No Hx Arthritis: No Hx Headaches / Migraines: Yes Hx Seizures: No Hx Kidney Stones: No Hx Psychiatric Treatment: No Hx Asthma: No Hx COPD: No Hx Tuberculosis: No Hx Dementia: No Hx HIV: No Additional medical history: gastroparesis - Surgical History Hx Coronary Stent: Yes Hx Open Heart Surgery: No Hx Pacemaker: No Hx Internal Defibrillator: No Hx Cholecystectomy: No Hx Appendectomy: No Hx Breast Surgery: No Additional Surgical History: Right AKA - Social History Smoking Status: Never Smoker Substance Use Type: None - Medications Home Medications: Home Medications Medication Instructions Recorded Confirmed Last Taken Type Clopidogrel [Plavix] 75 mg PO QDAY 04/21/13 11/14/18 04/17/18 09:00 History Escitalopram [Lexapro] 10 mg PO DAILY 03/16/14 11/14/18 04/17/18 09:00 History Sevelamer Carbonate [Renvela] 1,600 mg PO TIDWM 09/05/14 11/14/18 04/17/18 09:00 History AtorvaSTATin [Lipitor] 20 mg PO DAILY 09/28/14 11/14/18 04/17/18 09:00 History Labetalol HCl [Labetalol 300mg TAB] 300 mg PO DAILY 04/18/18 11/14/18 04/17/18 09:00 History Pantoprazole [Protonix TAB] 40 mg PO BID 15 Days #30 tablet 04/19/18 11/14/18 Unknown Rx Losartan [Cozaar] 50 mg PO QDAY 07/03/18 11/14/18 Unknown History Amlodipine Besylate [Norvasc] 5 mg PO QDAY 11/14/18 11/14/18 Unknown History Flonase 50 mcg NS BID 11/14/18 11/14/18 Unknown History Gabapentin [Neurontin] 300 mg PO DAILY 11/14/18 11/14/18 Unknown History Acetaminophen/Codeine [Tylenol #3] 1 tab PO Q6H PRN #8 tab 12/06/18 Unknown Rx ED Physical Exam - General Limitations: Altered Mental Status General appearance: alert, in no apparent distress - Head Head exam: Present: atraumatic, normocephalic, normal inspection - Eye Eye exam: Present: normal appearance - ENT ENT exam: Present: normal exam, normal orophraynx, mucous membranes moist - Neck Neck exam: Present: normal inspection, full ROM. Absent: tenderness, meningismus, lymphadenopathy, thyromegaly - Respiratory Respiratory exam: Present: normal lung sounds bilaterally - Cardiovascular Cardiovascular Exam: Present: regular rate, normal rhythm, normal heart sounds - GI/Abdominal GI/Abdominal exam: Present: soft, normal bowel sounds. Absent: distended, tenderness, guarding, rebound, rigid - Extremities Exam Extremities exam: Present: normal capillary refill. Absent: pedal edema, calf tenderness - Neurological Exam Neurological exam: Present: alert, oriented X3 - Psychiatric Psychiatric exam: Present: normal mood - Skin Skin exam: Present: warm, intact, normal color - Assessment Assessment Interval: Baseline - Level of Consciousness 1a. Level of Consciousness: alert/keenly responsive - LOC Questions 1b. LOC Questions: answers both correctly - LOC Command 1c. LOC Commands: performs tasks correctly - Best Gaze 2. Best Gaze: normal - Visual 3. Visual: no visual loss - Facial Palsy 4. Facial Palsy: normal symmetrical movement - Motor Arm 5a. Motor Arm Left: no drift 5b. Motor Arm Right: no drift - Motor Leg 6a. Motor Leg Left: no drift 6b. Motor Leg Right: no drift - Limb Ataxia 7. Limb Ataxia: absent - Sensory 8. Sensory: normal - Best Language 9. Best Language: no aphasia - Dysarthria 10. Dysarthria: normal - Extinction and Inattention 11. Extinction/Inattention: no abnormality - Scoring Total Score: 0 Stroke Severity: No Stroke Symptoms ED Course Vital Signs 12/06/18 12/06/18 12/06/18 14:04 14:15 14:19 Temperature 98.5 F Pulse Rate 61 61 Respiratory 19 13 Rate Blood Pressure 145/47 Blood Pressure 145/47 [Left] O2 Sat by Pulse 94 100 96 Oximetry 12/06/18 12/06/18 12/06/18 14:27 14:31 14:45 Temperature Pulse Rate 61 60 64 Respiratory 16 14 Rate Blood Pressure 145/47 145/47 Blood Pressure [Left] O2 Sat by Pulse 100 100 Oximetry 12/06/18 12/06/18 12/06/18 15:01 15:15 15:31 Temperature Pulse Rate 64 63 65 Respiratory 15 17 17 Rate Blood Pressure 145/47 162/55 143/61 Blood Pressure [Left] O2 Sat by Pulse 100 100 100 Oximetry 12/06/18 12/06/18 12/06/18 15:52 16:01 16:15 Temperature Pulse Rate 69 68 68 Respiratory 16 14 Rate Blood Pressure 143/61 126/69 126/69 Blood Pressure [Left] O2 Sat by Pulse 100 100 100 Oximetry 12/06/18 12/06/18 12/06/18 16:31 16:45 17:00 Temperature Pulse Rate 68 68 70 Respiratory 16 14 14 Rate Blood Pressure 146/65 146/65 155/52 Blood Pressure [Left] O2 Sat by Pulse 100 100 86 Oximetry 12/06/18 12/06/18 12/06/18 17:15 17:31 17:45 Temperature Pulse Rate 68 68 68 Respiratory 19 13 14 Rate Blood Pressure 155/52 152/62 152/62 Blood Pressure [Left] O2 Sat by Pulse 100 100 100 Oximetry 12/06/18 12/06/18 12/06/18 18:01 18:15 19:20 Temperature 97.6 F Pulse Rate 67 68 69 Respiratory 14 14 14 Rate Blood Pressure 131/65 131/65 Blood Pressure 115/61 [Left] O2 Sat by Pulse 100 100 100 Oximetry 12/06/18 12/06/18 12/06/18 19:45 20:01 20:15 Temperature Pulse Rate 70 69 70 Respiratory 17 12 11 L Rate Blood Pressure 150/51 160/51 160/51 Blood Pressure [Left] O2 Sat by Pulse 98 99 98 Oximetry 12/06/18 20:30 Temperature Pulse Rate 67 Respiratory 14 Rate Blood Pressure 158/51 Blood Pressure [Left] O2 Sat by Pulse 100 Oximetry - Lab Data Result diagrams: 12/06/18 16:01 12/06/18 17:49 Lab Results 12/06/18 12/06/18 12/06/18 Range/Units 16:01 16:01 16:01 WBC 3.8 L (4.5-11.0) K/mm3 RBC 3.94 (3.65-5.03) M/mm3 Hgb 13.4 (10.1-14.3) gm/dl Hct 40.7 (30.3-42.9) % MCV 103 H (79-97) fl MCH 34 H (28-32) pg MCHC 33 (30-34) % RDW 18.9 H (13.2-15.2) % Plt Count 108 L (140-440) K/mm3 Lymph % (Auto) 19.0 (13.4-35.0) % [place] % (Auto) 8.4 H (0.0-7.3) % Eos % (Auto) 0.1 (0.0-4.3) % Baso % (Auto) 0.9 (0.0-1.8) % Lymph # 0.7 L (1.2-5.4) K/mm3 [place] # 0.3 (0.0-0.8) K/mm3 Eos # 0.0 (0.0-0.4) K/mm3 Baso # 0.0 (0.0-0.1) K/mm3 Seg Neutrophils % 71.6 H (40.0-70.0) % Seg Neutrophils # 2.7 (1.8-7.7) K/mm3 PT 14.5 (12.2-14.9) Sec. INR 1.16 H (0.87-1.13) APTT 33.0 (24.2-36.6) Sec. Sodium TNR Potassium TNR Chloride TNR Carbon Dioxide TNR Anion Gap TNR BUN TNR Creatinine TNR Estimated GFR TNR BUN/Creatinine Ratio TNR Glucose TNR Lactic Acid (0.7-2.0) mmol/L Calcium TNR Total Bilirubin TNR AST TNR ALT TNR Alkaline Phosphatase TNR Troponin T 0.245 H* (0.00-0.029) ng/mL Total Protein TNR Albumin TNR Albumin/Globulin Ratio TNR Triglycerides Cancelled Cholesterol Cancelled LDL Cholesterol Direct Cancelled HDL Cholesterol Cancelled Cholesterol/HDL Ratio Cancelled 12/06/18 12/06/18 12/06/18 Range/Units 16:01 17:49 17:49 WBC (4.5-11.0) K/mm3 RBC (3.65-5.03) M/mm3 Hgb (10.1-14.3) gm/dl Hct (30.3-42.9) % MCV (79-97) fl MCH (28-32) pg MCHC (30-34) % RDW (13.2-15.2) % Plt Count (140-440) K/mm3 Lymph % (Auto) (13.4-35.0) % [place] % (Auto) (0.0-7.3) % Eos % (Auto) (0.0-4.3) % Baso % (Auto) (0.0-1.8) % Lymph # (1.2-5.4) K/mm3 [place] # (0.0-0.8) K/mm3 Eos # (0.0-0.4) K/mm3 Baso # (0.0-0.1) K/mm3 Seg Neutrophils % (40.0-70.0) % Seg Neutrophils # (1.8-7.7) K/mm3 PT (12.2-14.9) Sec. INR (0.87-1.13) APTT (24.2-36.6) Sec. Sodium 136 L Potassium 5.7 H Chloride 95.9 L Carbon Dioxide 24 Anion Gap 22 BUN 24 H Creatinine 4.9 H Estimated GFR 11 BUN/Creatinine Ratio 5 Glucose 92 Lactic Acid 1.50 (0.7-2.0) mmol/L Calcium 8.9 Total Bilirubin 0.40 AST 43 H ALT 24 Alkaline Phosphatase 177 H Troponin T 0.274 H* (0.00-0.029) ng/mL Total Protein 7.5 Albumin 4.3 Albumin/Globulin Ratio 1.3 Triglycerides 82 Cholesterol 123 LDL Cholesterol Direct 41 L HDL Cholesterol 72 H Cholesterol/HDL Ratio 1.70 Critical Care Time: Yes Critical care time in (mins) excluding proc time.: 30 Critical care attestation.: If time is entered above; I have spent that time in minutes in the direct care of this critically ill patient, excluding procedure time. ED Disposition Clinical Impression: End stage renal disease on dialysis, H/O: CVA (cerebrovascular accident), Hypoxia Disposition: DC- OP ADMIT IP TO THIS HOSP Is pt being admited?: Yes Condition: Stable
--- NOTE | 2018-12-06 15:01 | XRay Report ---
CHEST 1 VIEW INDICATION / CLINICAL INFORMATION: Altered Mental Status. COMPARISON: 04/18/2018 FINDINGS: SUPPORT DEVICES: None. HEART / MEDIASTINUM: Moderately enlarged. LUNGS / PLEURA: There has been development of pulmonary venous congestion with interstitial edema. No focal alveolar consolidation. Small effusions may be present as well. No pneumothorax. ADDITIONAL FINDINGS: No significant additional findings. IMPRESSION: 1 Early heart failure Signer Name: Korey Ching MD Signed: 12/06/2018 2:56 PM Workstation Name: [id number]
[2018-12-06 16:15] LABS: Basophils % (Auto) 0.9 % (0.0-1.8); Eosinophils % (Auto) 0.1 % (0.0-4.3); Hematocrit 40.7 % (30.3-42.9); Hemoglobin 13.4 gm/dl (10.1-14.3); Lymphocytes # (Auto) 0.7 K/mm3 (1.2-5.4); Mean Corpuscular HGB Conc 33 % (30-34); Mean Corpuscular Volume 103 fl (79-97); Monocytes # (Auto) 0.3 K/mm3 (0.0-0.8); Monocytes % (Auto) 8.4 % (0.0-7.3); Platelet Count 108 K/mm3 (140-440); Red Blood Count 3.94 M/mm3 (3.65-5.03); Red Cell Distribution Width 18.9 % (13.2-15.2)
[2018-12-06 16:25] LABS: INR 1.16 (0.87-1.13)
--- NOTE | 2018-12-06 16:26 | Cat Scan Report ---
CT head/brain wo con INDICATION / CLINICAL INFORMATION: 72 years Female; Altered Mental Status. TECHNIQUE: Routine CT head without contrast. All CT scans at this location are performed using CT dos e reduction for ALARA by means of automated exposure control. COMPARISON: 11/14/2018 FINDINGS: BRAIN / INTRACRANIAL CONTENTS: Encephalomalacia seen predominantly in a watershed area of the left ce rebral hemisphere, extending into the CIRCULATING NURSE territory as well. Similar findings seen on prior. It would be difficult to evaluate for small areas of ischemia without diffusion imaging by MRI. Otherwise, no acute hemorrhage, mass effect, midline shift, hydrocephalus, or acute, large territoria l infarct. Mild cerebral atrophy. There are mild areas of decreased attenuation in the white matter of the cerebral hemispheres. These are nonspecific findings and may be related to microangiopathy (hypertension, diabetes, atheroscleros is), given the patient's age. It might be difficult to evaluate for small areas of ischemia without d iffusion imaging by MRI. CRANIOCERVICAL JUNCTION: No significant abnormality. ORBITS: No significant abnormality of visualized orbits. SINUSES / MASTOIDS: There is complete opacification of the mastoids and middle ear cavities. ADDITIONAL FINDINGS: Atherosclerotic disease is seen in the anterior and posterior circulation. IMPRESSION: 1. No focal mass, hemorrhage, hydrocephalus, or acute, large territorial infarct. Diffusion imaging b y MRI may be of benefit. Signer Name: Phill Guaman MD, III Signed: 12/06/2018 4:22 PM Workstation Name: [id number]
[2018-12-06 16:57] LABS: Alanine Aminotransferase TNR units/L (7-56)
[2018-12-06 16:58] LABS: Blood Urea Nitrogen TNR mg/dL (7-17)
[2018-12-06 16:59] LABS: BUN/Creatinine Ratio TNR
[2018-12-06 17:00] LABS: Calcium TNR mg/dL (8.4-10.2)
[2018-12-06 17:01] LABS: Albumin TNR g/dL (3.9-5)
[2018-12-06 17:02] LABS: Hemolysis Index TNR
[2018-12-06 18:29] LABS: Albumin 4.3 g/dL (3.9-5); Calcium 8.9 mg/dL (8.4-10.2)
[2018-12-06 18:55] LABS: Chol/HDL Ratio 1.7 %
--- NOTE | 2018-12-06 19:18 | Nuclear Medicine Report ---
Ventilation/perfusion scan lungs INDICATION: Chest pain and shortness of breath TECHNIQUE: The patient was administered 5.3 mCi of technetium 99 MAA for the perfusion phase of the s tudy and 12.3 mCi of xenon-133 for the ventilation phase FINDINGS: There is patchy air trapping at both lung bases on the ventilation portion of the study. Th e perfusion phase however shows no focal segmental or subsegmental perfusion defects and the probabil ity of embolus is considered low. Signer Name: Korey Ching MD Signed: 12/06/2018 7:14 PM Workstation Name: [id number]
--- NOTE | 2018-12-06 19:50 | History and Physical Report ---
History of Present Illness Chief complaint: I wasn't feeling good History of present illness: 72 YO Female SNF Resident currently undergoing inpatient Rehab with ESRD on HD(M,W,F), DM complicated by Gastroparesis, CAD S/P Stent Placement, HTN, HLD, CVA with RHP presents to ED for evaluation. Pt states that she has been "feeling sick" all day today. Further history provided by rehab facility staff. per staff, the patient was found to be confused and short of breath with pulse oximetry of 71%. EMS notified and upon arrival the patient was found to be in respiratory distress.Pt treated with supplemental oxygen and transferred to [facility] for further care and evaluation. Pt seen and evaluated in ED and found to have ESRD, Acute Respiratory Failure and Encephalopathy. Pt admitted to medical floor. Nephrology consulted in ED. No reports of fever, chills, CP, Palpitations, trauma, syncope, recent ill contacts, skin rash, or headache. Prior admission on 11/14/18 reviewed. All listed medication reconciled at time of admission. Past History Past Medical History: other (see hpi) Past Surgical History: Other (Cardiac stent, Right AKA) Social history: single. denies: smoking, alcohol abuse, prescription drug abuse Family history: diabetes, hypertension Medications and Allergies Allergies Allergy/AdvReac Type Severity Reaction Status Date / Time No Known Allergies Allergy Verified 06/14/13 10:48 Home Medications Medication Instructions Recorded Confirmed Last Taken Type Clopidogrel [Plavix] 75 mg PO QDAY 04/21/13 11/14/18 04/17/18 09:00 History Escitalopram [Lexapro] 10 mg PO DAILY 03/16/14 11/14/18 04/17/18 09:00 History Sevelamer Carbonate [Renvela] 1,600 mg PO TIDWM 09/05/14 11/14/18 04/17/18 09:00 History AtorvaSTATin [Lipitor] 20 mg PO DAILY 09/28/14 11/14/18 04/17/18 09:00 History Labetalol HCl [Labetalol 300mg TAB] 300 mg PO DAILY 04/18/18 11/14/18 04/17/18 09:00 History Pantoprazole [Protonix TAB] 40 mg PO BID 15 Days #30 tablet 04/19/18 11/14/18 Unknown Rx Losartan [Cozaar] 50 mg PO QDAY 05/16/19 09/27/19 Unknown History Amlodipine Besylate [Norvasc] 5 mg PO QDAY 11/14/18 11/14/18 Unknown History Flonase 50 mcg NS BID 11/14/18 11/14/18 Unknown History Gabapentin [Neurontin] 300 mg PO DAILY 11/14/18 11/14/18 Unknown History Acetaminophen/Codeine [Tylenol #3] 1 tab PO Q6H PRN #8 tab 12/06/18 Unknown Rx Review of Systems ROS unobtainable: due to mental status Exam - Constitutional Vitals: Temp Pulse Resp BP Pulse Ox 97.6 F 69 14 115/61 100 12/06/18 19:20 12/06/18 19:20 12/06/18 19:20 12/06/18 19:20 12/06/18 19:20 General appearance: Present: mild distress - EENT Eyes: Present: PERRL ENT: hearing intact, clear oral mucosa - Neck Neck: Present: supple, normal ROM - Respiratory Respiratory effort: normal Respiratory: bilateral: diminished, rhonchi - Cardiovascular Heart Sounds: Present: S1 & S2. Absent: rub, click - Extremities Extremities: pulses symmetrical, No edema Peripheral Pulses: within normal limits - Abdominal General gastrointestinal: Present: soft, non-tender, non-distended, normal bowel sounds Female genitourinary: Present: normal - Integumentary Integumentary: Present: clear, warm, dry - Musculoskeletal Musculoskeletal: gait normal, strength equal bilaterally - Psychiatric Psychiatric: no appropriate mood/affect, no intact judgment & insight, no memory intact - Neurologic Neurologic: CNII-XII intact, moves all extremities Results - Labs CBC & Chem 7: 12/06/18 16:01 12/06/18 17:49 Labs: Abnormal lab results 12/06/18 12/06/18 12/06/18 Range/Units 16:01 16:01 16:01 WBC 3.8 L (4.5-11.0) K/mm3 MCV 103 H (79-97) fl MCH 34 H (28-32) pg RDW 18.9 H (13.2-15.2) % Plt Count 108 L (140-440) K/mm3 [place] % (Auto) 8.4 H (0.0-7.3) % Lymph # 0.7 L (1.2-5.4) K/mm3 Seg Neutrophils % 71.6 H (40.0-70.0) % INR 1.16 H (0.87-1.13) Sodium (137-145) mmol/L Potassium (3.6-5.0) mmol/L Chloride (98-107) mmol/L BUN (7-17) mg/dL Creatinine (0.7-1.2) mg/dL AST (5-40) units/L Alkaline Phosphatase (35-129) units/L Troponin T 0.245 H* (0.00-0.029) ng/mL LDL Cholesterol Direct (50-130) mg/dL HDL Cholesterol (40-59) mg/dL 12/06/18 12/06/18 Range/Units 17:49 17:49 WBC (4.5-11.0) K/mm3 MCV (79-97) fl MCH (28-32) pg RDW (13.2-15.2) % Plt Count (140-440) K/mm3 [place] % (Auto) (0.0-7.3) % Lymph # (1.2-5.4) K/mm3 Seg Neutrophils % (40.0-70.0) % INR (0.87-1.13) Sodium 136 L (137-145) mmol/L Potassium 5.7 H (3.6-5.0) mmol/L Chloride 95.9 L (98-107) mmol/L BUN 24 H (7-17) mg/dL Creatinine 4.9 H (0.7-1.2) mg/dL AST 43 H (5-40) units/L Alkaline Phosphatase 177 H (35-129) units/L Troponin T 0.274 H* (0.00-0.029) ng/mL LDL Cholesterol Direct 41 L (50-130) mg/dL HDL Cholesterol 72 H (40-59) mg/dL Assessment and Plan - Patient Problems (1) Respiratory failure Current Visit: Yes Status: Acute Qualifiers: Chronicity: acute Respiratory failure complication: hypoxia Qualified Code(s): J96.01 - Acute respiratory failure with hypoxia Plan to address problem: Admit to JULI unit, supplemental oxygen, nebulizer therapy, VQ scan, Focused abdominal exam shows no aortic enlargement, chest x ray, NIPPV as clinically indicated. (2) ESRD (end stage renal disease) Current Visit: Yes Status: Acute Plan to address problem: Nephrology consulted in ED, dialysis as per renal team, strict I/O, monitor uop q shift, avoid nephrotoxic agents. (3) HTN (hypertension) Current Visit: Yes Status: Acute Qualifiers: Hypertension type: essential hypertension Qualified Code(s): I10 - Essential (primary) hypertension Plan to address problem: Monitor bp q shift, continue medical management. (4) Encephalopathy Current Visit: Yes Status: Acute Plan to address problem: Metabolic Encephalopathy: CT head, neuro check, aspiration precautions, seizure precautions, dialysis as per renal team (5) Debility Current Visit: Yes Status: Acute Plan to address problem: PT consulted, supportive care. (6) DVT prophylaxis Current Visit: Yes Status: Acute Plan to address problem: SCD to BLE while in bed, prophylactic heparin
[2018-12-06] MEDS ORDERED: TYLENOL #3 PO PRN (19:53)
[2018-12-06] MEDS ORDERED: ZOFRAN IV PRN (19:55)
[2018-12-06] MEDS ORDERED: SODIUM CHLORIDE FLUSH SYRINGE 10 ML IV PRN (19:55)
[2018-12-06] MEDS ORDERED: TYLENOL PO PRN (19:55)
[2018-12-06] MEDS ORDERED: PROVENTIL IH PRN (19:55)
[2018-12-06] MEDS ORDERED: D50W (25GM) Syringe IV PRN (20:18)
--- NOTE | 2018-12-06 20:26 | Event Note ---
Date: 12/06/18 Patient noted to continue to be hypoxic on room air. Patient to be admitted to the hospitalist service for continued management and treatment.
[2018-12-06] MEDS ORDERED: KIONEX ONE (20:30)
[2018-12-06] MEDS ORDERED: KIONEX PO ONE (20:30)
[2018-12-06] MEDS ORDERED: CALCIUM GLUCONATE 1,000 MG in NACL 0.9% 100 ML IV ONE (20:30)
[2018-12-06] MEDS ORDERED: FLONASE 50 MCG NS SCH (22:00)
[2018-12-06] MEDS: HumaLOG SUB-Q SCH (23:03)
[2018-12-06] MEDS: SODIUM CHLORIDE FLUSH SYRINGE 10 ML IV SCH (23:04)
[2018-12-06] MEDS: FLONASE NS SCH (23:04)
[2018-12-06] MEDS: PROTONIX PO SCH (23:04)
[2018-12-07] MEDS: HumaLOG SUB-Q SCH ×4 (07:25→22:01)
[2018-12-07] MEDS: RENVELA PO SCH ×3 (08:06→17:50)
[2018-12-07] MEDS: GABAPENTIN PO SCH (09:20)
[2018-12-07] MEDS: FLONASE NS SCH ×2 (09:20→21:59)
[2018-12-07] MEDS: PROTONIX PO SCH ×2 (09:20→22:00)
[2018-12-07] MEDS: LEXAPRO PO SCH (09:20)
[2018-12-07] MEDS: PLAVIX PO SCH (09:20)
[2018-12-07] MEDS: SODIUM CHLORIDE FLUSH SYRINGE 10 ML IV SCH ×2 (09:21→22:00)
[2018-12-07] MEDS: COZAAR PO SCH (09:22)
[2018-12-07] MEDS ORDERED: LABETALOL PO SCH (10:00)
[2018-12-07] MEDS ORDERED: NON-FORMULARY (Labetalol Hcl [Labetalol 300mg Tab] 300 MG) PO SCH (10:00)
[2018-12-07] MEDS ORDERED: NACL 0.9% 100 ML IV PRN (11:49)
--- NOTE | 2018-12-07 11:52 | Consultation ---
History of Present Illness - History of Present Illness My assessment and plan are as follows End-stage renal disease: Patient will continue with hemodialysis treatment on Saturday and Saturday She does have hyperkalemia hypoxemia and appears to have some evidence of fluid overload Will order for hemodialysis treatment today, Anemia and end-stage renal disease: To monitor and follow, erythropoietin as required goal hemoglobin dialysis patients usually occurring 10 and 12, we will follow This point hold off blood pressure medication, discontinue amlodipine, discontinue labetalol May need to discontinue losartan due to hyperkalemia and postdialysis setting Secondary hyperparathyroidism: Monitor phosphorus and PTH periodically and adjust binders as needed Diet and nutrition: Fluid restriction 1200 mL per day, high-protein diet may benefit from nutrition consultation , patient is protein intake should be 1.5 g per KG body weight Hypertension and volume continue to monitor, educated about fluid restriction sodium restriction Patient does exhibit good understanding of the renal related issues Patient has been adequately counseled and educated regarding all the renal related issues Renal care plan was discussed with patient Prognosis remains guarded at this time We'll continue to follow and make recommendation from renal standpoint She have any questions please feel free to contact me at [phone] Sachin Romero M.D. [facility], [address] [place] [address] History of presenting illness, Patient is 72-year-old female who has been admitted here, with altered mental status, she does have history of fall end-stage renal disease currently on hemodialysis, and is being evaluated for altered mental status patient 13.4 potassium was 5.7 yesterday sodium 136 BUN 24 creatinine is 4.9 Patient is currently in maintenance hemodialysis on Saturday and Saturday schedule She is still noted to have some hypoxemia and respiratory insufficiency Past medical history significant for ESRD on hemodialysis Diabetes mellitus type 2 Hypertension Above-knee amputation Hyperlipidemia Depression and anxiety per patient Current allergies: Reviewed Home medication present medication: Reviewed Social history family history: Reviewed Review of systems positive for: Altered mental status: Clinically doing better No evidence of any chest pain pressure or shortness of breath Blood pressure is 105/36 Physical examination: General: No acute distress HEENT: Oral mucosa moist no icterus, no facial swelling Neck: Supple no thyromegaly no lymphadenopathy no JVD Chest: Bilateral basilar crackles Heart: Regular rate and rhythm S1-S2 heard no S3-S4 Abdomen: Soft nontender no organomegaly no masses palpable no renal bruit no suprapubic masses no CVA tenderness Dermatology: No skin rashes noted Extremity: Less than 1+ peripheral edema, dry skin no petechial rashes Status post amputation Musculoskeletal: No joint effusion noted in knee and ankle area Psych: No evidence of agitation and aggression noted Neurological: Alert awake follows commands no tremors no myoclonus Back: No CVA tenderness Past History Past Medical History: other (see hpi) Past Surgical History: Other (Cardiac stent, Right AKA) Social history: single. denies: smoking, alcohol abuse, prescription drug abuse Family history: diabetes, hypertension Medications and Allergies Allergies Allergy/AdvReac Type Severity Reaction Status Date / Time No Known Allergies Allergy Verified 06/14/13 10:48 Home Medications Medication Instructions Recorded Confirmed Last Taken Type Clopidogrel [Plavix] 75 mg PO QDAY 04/21/13 11/14/18 04/17/18 09:00 History Escitalopram [Lexapro] 10 mg PO DAILY 03/16/14 11/14/18 04/17/18 09:00 History Sevelamer Carbonate [Renvela] 1,600 mg PO TIDWM 09/05/14 11/14/18 04/17/18 09:00 History AtorvaSTATin [Lipitor] 20 mg PO DAILY 09/28/14 11/14/18 04/17/18 09:00 History Labetalol HCl [Labetalol 300mg TAB] 300 mg PO DAILY 04/18/18 11/14/18 04/17/18 09:00 History Pantoprazole [Protonix TAB] 40 mg PO BID 15 Days #30 tablet 04/19/18 11/14/18 Unknown Rx Losartan [Cozaar] 50 mg PO QDAY 07/03/18 11/14/18 Unknown History Amlodipine Besylate [Norvasc] 5 mg PO QDAY 11/14/18 11/14/18 Unknown History Flonase 50 mcg NS BID 11/14/18 11/14/18 Unknown History Gabapentin [Neurontin] 300 mg PO DAILY 11/14/18 11/14/18 Unknown History Acetaminophen/Codeine [Tylenol #3] 1 tab PO Q6H PRN #8 tab 12/06/18 Unknown Rx Active Meds: Active Medications Acetaminophen (Tylenol) 650 mg PO Q4H PRN PRN Reason: Pain MILD(1-3)/Fever >100.5/QUINONEZ Acetaminophen/Codeine Phosphate (Tylenol #3) 1 tab PO Q6H PRN PRN Reason: PAIN Albuterol (Proventil) 2.5 mg IH Q4H PRN PRN Reason: Shortness Of Breath Amlodipine Besylate (Norvasc) 5 mg PO QDAY [facility] Last Admin: 12/07/18 09:22 Dose: Not Given Documented by: Atorvastatin Calcium (Lipitor) 20 mg PO QHS [facility] Last Admin: 12/06/18 23:04 Dose: Not Given Documented by: Clopidogrel Bisulfate (Plavix) 75 mg PO QDAY [facility] Last Admin: 12/07/18 09:20 Dose: 75 mg Documented by: Dextrose (D50w (25gm) Syringe) 50 ml IV Q30MIN PRN PRN Reason: Hypoglycemia Escitalopram Oxalate (Lexapro) 10 mg PO DAILY [facility] Last Admin: 12/07/18 09:20 Dose: 10 mg Documented by: Fluticasone Propionate (Flonase) 50 mcg NS BID [facility] Last Admin: 12/07/18 09:20 Dose: 50 mcg Documented by: Gabapentin (Neurontin) 300 mg PO DAILY [facility] Last Admin: 12/07/18 09:20 Dose: 300 mg Documented by: Sodium Chloride (Nacl 0.9%) 100 mls @ 999 mls/hr IV JUAN CARLOS PRN PRN Reason: Hypotension Insulin Human Lispro (Humalog) 0 unit SUB-Q ACHS [facility]; Protocol Last Admin: 12/07/18 11:46 Dose: Not Given Documented by: Labetalol HCl (Normodyne) 300 mg PO QDAY [facility] Last Admin: 12/07/18 09:21 Dose: Not Given Documented by: Losartan Potassium (Cozaar) 50 mg PO QDAY [facility] Last Admin: 12/07/18 09:22 Dose: Not Given Documented by: Ondansetron HCl (Zofran) 4 mg IV Q8H PRN PRN Reason: Nausea And Vomiting Pantoprazole Sodium (Protonix) 40 mg PO BID [facility] Last Admin: 12/07/18 09:20 Dose: 40 mg Documented by: Sevelamer Carbonate (Renvela) 1,600 mg PO TIDWM [facility] Last Admin: 12/07/18 11:46 Dose: 1,600 mg Documented by: Sodium Chloride (Sodium Chloride Flush Syringe 10 Ml) 10 ml IV BID ANNI Last Admin: 12/07/18 09:21 Dose: 10 ml Documented by: Sodium Chloride (Sodium Chloride Flush Syringe 10 Ml) 10 ml IV PRN PRN PRN Reason: LINE FLUSH Exam - Vital Signs Vital signs: Vital Signs Pulse Ox 94 12/06/18 14:04 Results - Lab Results 12/06/18 16:01 12/06/18 17:49 Most recent lab results Calcium 8.9 mg/dL (8.4-10.2) 12/06/18 17:49
--- NOTE | 2018-12-07 12:34 | Progress Note ---
Assessment and Plan (1) Respiratory failure Current Visit: Yes Status: Acute Qualifiers: Chronicity: acute Respiratory failure complication: hypoxia Qualified Code(s): J96.01 - Acute respiratory failure with hypoxia Plan to address problem: Admit to JULI unit, supplemental oxygen, nebulizer therapy, VQ scan, Focused abdominal exam shows no aortic enlargement, chest x ray, NIPPV as clinically indicated. (2) ESRD (end stage renal disease) Current Visit: Yes Status: Acute Plan to address problem: Dialysis as per renal team, strict I/O, monitor uop q shift, avoid nephrotoxic agents. (3) Hyperkalemia Treated (4) HTN (hypertension) Current Visit: Yes Status: Acute Qualifiers: Hypertension type: essential hypertension Qualified Code(s): I10 - Essential (primary) hypertension Plan to address problem: Monitor bp q shift, continue medical management. (5) Encephalopathy Current Visit: Yes Status: Acute Plan to address problem: Metabolic Encephalopathy: CT head, neuro check, aspiration precautions, seizure precautions, dialysis as per renal team (6) Debility Current Visit: Yes Status: Acute Plan to address problem: PT consulted, supportive care. (7) DVT prophylaxis Current Visit: Yes Status: Acute Plan to address problem: SCD to BLE while in bed, prophylactic heparin Subjective Date of service: 12/07/18 Principal diagnosis: Acute encephalopathy/ESRD Interval history: 72 YO Female SNF Resident currently undergoing inpatient Rehab with ESRD on HD(M,W,F), DM complicated by Gastroparesis, CAD S/P Stent Placement, HTN, HLD, CVA with RHP presents to ED for evaluation. Pt states that she has been "feeling sick" all day today. Further history provided by rehab facility staff. per staff, the patient was found to be confused and short of breath with pulse oximetry of 71%. EMS notified and upon arrival the patient was found to be in respiratory distress.Pt treated with supplemental oxygen and transferred to [facility] for further care and evaluation. Pt seen and evaluated in ED and found to have ESRD, Acute Respiratory Failure and Encephalopathy. Pt admitted to medical floor. Nephrology consulted in ED. No reports of fever, chills, CP, Palpitations, trauma, syncope, recent ill contacts, skin rash, or headache. Prior admission on 11/14/18 reviewed. All listed medication reconciled at time of admission. Interval improvement present. Objective - Constitutional Vitals: Vital Signs - 12hr 12/07/18 12/07/18 12/07/18 01:55 07:29 07:42 Temperature 97.8 F 97.7 F Pulse Rate 62 65 Pulse Rate [ 65 From Monitor] Respiratory 20 18 18 Rate Blood Pressure Blood Pressure 128/40 [Left] O2 Sat by Pulse 100 97 97 Oximetry 12/07/18 12/07/18 12/07/18 09:21 09:35 10:00 Temperature Pulse Rate 68 64 Pulse Rate [ From Monitor] Respiratory Rate Blood Pressure 105/36 Blood Pressure [Left] O2 Sat by Pulse 100 Oximetry General appearance: Present: no acute distress, well-nourished - EENT Eyes: PERRL, EOM intact ENT: hearing intact, clear oral mucosa Ears: bilateral: normal - Neck Neck: supple, normal ROM - Respiratory Respiratory effort: normal Respiratory: bilateral: CTA - Breasts Breasts: normal - Cardiovascular Heart rate: 78 Rhythm: regular Heart Sounds: Present: S1 & S2. Absent: gallop, rub Extremities: no ischemia, pulses intact, No edema, normal color, Full ROM - Gastrointestinal General gastrointestinal: Present: soft, non-tender, non-distended, normal bowel sounds - Genitourinary Female genitourinary: normal - Integumentary Integumentary: clear, warm, dry - Musculoskeletal Musculoskeletal: 1, strength equal bilaterally - Neurologic Neurologic: moves all extremities - Psychiatric Psychiatric: memory intact, appropriate mood/affect, intact judgment & insight - Labs CBC & Chem 7: 12/06/18 16:01 12/06/18 17:49 Labs: Abnormal lab results 12/06/18 12/06/18 12/06/18 Range/Units 16:01 16:01 16:01 WBC 3.8 L (4.5-11.0) K/mm3 MCV 103 H (79-97) fl MCH 34 H (28-32) pg RDW 18.9 H (13.2-15.2) % Plt Count 108 L (140-440) K/mm3 [place] % (Auto) 8.4 H (0.0-7.3) % Lymph # 0.7 L (1.2-5.4) K/mm3 Seg Neutrophils % 71.6 H (40.0-70.0) % INR 1.16 H (0.87-1.13) Sodium (137-145) mmol/L Potassium (3.6-5.0) mmol/L Chloride (98-107) mmol/L BUN (7-17) mg/dL Creatinine (0.7-1.2) mg/dL POC Glucose (70-105) AST (5-40) units/L Alkaline Phosphatase (35-129) units/L Troponin T 0.245 H* (0.00-0.029) ng/mL LDL Cholesterol Direct (50-130) mg/dL HDL Cholesterol (40-59) mg/dL 12/06/18 12/06/18 12/07/18 Range/Units 17:49 17:49 11:14 WBC (4.5-11.0) K/mm3 MCV (79-97) fl MCH (28-32) pg RDW (13.2-15.2) % Plt Count (140-440) K/mm3 [place] % (Auto) (0.0-7.3) % Lymph # (1.2-5.4) K/mm3 Seg Neutrophils % (40.0-70.0) % INR (0.87-1.13) Sodium 136 L (137-145) mmol/L Potassium 5.7 H (3.6-5.0) mmol/L Chloride 95.9 L (98-107) mmol/L BUN 24 H (7-17) mg/dL Creatinine 4.9 H (0.7-1.2) mg/dL POC Glucose 115 H (70-105) AST 43 H (5-40) units/L Alkaline Phosphatase 177 H (35-129) units/L Troponin T 0.274 H* (0.00-0.029) ng/mL LDL Cholesterol Direct 41 L (50-130) mg/dL HDL Cholesterol 72 H (40-59) mg/dL
[2018-12-07] MEDS ORDERED: KIONEX PO ONE (13:30)
[2018-12-07 14:49] LABS: Hepatitis B Surface Antigen Non-Reactive (Negative); Hepatitis C Virus Antibody Non-Reactive (NonReactive)
[2018-12-07] MEDS ORDERED: NACL 0.9 (PRIMING MACHINE ONLY DIALYSIS) MC ONE (18:14)
[2018-12-08 06:29] LABS: Hematocrit 38.9 % (30.3-42.9); Hemoglobin 12.5 gm/dl (10.1-14.3); Lymphocytes % (Auto) 24.4 % (13.4-35.0); Mean Corpuscular HGB Conc 32 % (30-34); Mean Corpuscular Volume 105 fl (79-97); Platelet Count 89 K/mm3 (140-440); Red Cell Distribution Width 18.4 % (13.2-15.2)
[2018-12-08 06:30] LABS: Basophils # (Auto) 0.1 K/mm3 (0.0-0.1); Basophils % (Auto) 2.5 % (0.0-1.8); Eosinophils # (Auto) 0.2 K/mm3 (0.0-0.4); Eosinophils % (Auto) 7.2 % (0.0-4.3); Lymphocytes # (Auto) 0.8 K/mm3 (1.2-5.4); Monocytes # (Auto) 0.3 K/mm3 (0.0-0.8); Monocytes % (Auto) 9.8 % (0.0-7.3)
[2018-12-08 06:45] LABS: Calcium 8.7 mg/dL (8.4-10.2)
[2018-12-08] MEDS: HumaLOG SUB-Q SCH ×4 (07:55→22:29)
[2018-12-08] MEDS: RENVELA PO SCH ×3 (08:36→17:41)
--- NOTE | 2018-12-08 08:47 | Event Note ---
was in ED earlier for sholder arthritis, got morphin, went back to snf and came back with AMS.
[2018-12-08] MEDS: GABAPENTIN PO SCH (09:47)
[2018-12-08] MEDS: FLONASE NS SCH ×2 (09:48→21:22)
[2018-12-08] MEDS: PROTONIX PO SCH ×2 (09:48→21:22)
[2018-12-08] MEDS: PLAVIX PO SCH (09:48)
[2018-12-08] MEDS: COZAAR PO SCH (09:48)
[2018-12-08] MEDS: LEXAPRO PO SCH (09:48)
[2018-12-08] MEDS: SODIUM CHLORIDE FLUSH SYRINGE 10 ML IV SCH ×2 (09:49→21:23)
--- NOTE | 2018-12-08 10:56 | Progress Note ---
Assessment and Plan - Patient Problems (1) ESRD (end stage renal disease) on dialysis Current Visit: Yes Status: Acute Plan to address problem: ESRD on hemodialysis -Will initiate HD - continue HD MWF access : right arm AVF (2) HTN (hypertension) Current Visit: Yes Status: Acute Qualifiers: Hypertension type: essential hypertension Qualified Code(s): I10 - Essential (primary) hypertension Plan to address problem: HTN: continue current medications. (3) Diastolic CHF Current Visit: No Status: Acute Qualifiers: Heart failure chronicity: acute on chronic Qualified Code(s): I50.33 - Acute on chronic diastolic (congestive) heart failure Plan to address problem: Acute on Chronic Diastolic CHF - I reviewed echocardiogram with EF : 65% with dilated atria . - continue ultrafiltration . (4) Metabolic acidosis Current Visit: Yes Status: Acute Plan to address problem: metabolic acidosis -continue dialysis Subjective Principal diagnosis: Acute encephalopathy/ESRD Interval history: 72 year old with medical history of ESRD on Hemodialysis on MWF , DM type II , Gastroparesis , CAD s/p stent , HLD, CVA presents with confusion and shortness of breath. patient received HD yesterday Will repeat HD again today. Objective - Vital Signs Vital signs: Vital Signs - 12hr 12/08/18 12/08/18 12/08/18 02:28 07:39 08:47 Temperature 97.8 F Pulse Rate 72 72 Respiratory 18 18 Rate Blood Pressure 137/46 131/43 O2 Sat by Pulse 99 100 85 Oximetry 12/08/18 12/08/18 09:48 10:00 Temperature Pulse Rate 69 69 Respiratory Rate Blood Pressure 143/40 O2 Sat by Pulse Oximetry - General Appearance General appearance: well-developed, well-nourished EENT: ATNC, PERRL Respiratory: Present: Clear to Ascultation Cardiology: regular Gastrointestinal: normal, normoactive bowel sounds Integumentary: no rash Neurologic: alert and oriented x3, CN 3-12 intact Psychiatric: mood/affect appropriate - Lab 12/08/18 05:54 12/08/18 05:54 Most recent lab results Calcium 8.7 mg/dL (8.4-10.2) 12/08/18 05:54 - Imaging Chest x-ray: image reviewed (i reviewed cxr with pulmonary edema. ) Medications & Allergies - Medications Allergies/Adverse Reactions: Allergies No Known Allergies Allergy (Verified 06/14/13 10:48) Home Medications: Home Medications Medication Instructions Recorded Confirmed Last Taken Type Clopidogrel [Plavix] 75 mg PO QDAY 04/21/13 12/08/18 04/17/18 09:00 History Escitalopram [Lexapro] 10 mg PO DAILY 03/16/14 12/08/18 04/17/18 09:00 History Sevelamer Carbonate [Renvela] 1,600 mg PO TIDWM 09/05/14 12/08/18 04/17/18 09:00 History AtorvaSTATin [Lipitor] 20 mg PO DAILY 09/28/14 12/08/18 04/17/18 09:00 History Labetalol HCl [Labetalol 300mg TAB] 300 mg PO DAILY 04/18/18 12/08/18 04/17/18 09:00 History Pantoprazole [Protonix TAB] 40 mg PO BID 15 Days #30 tablet 04/19/18 12/08/18 Unknown Rx Losartan [Cozaar] 50 mg PO QDAY 07/03/18 12/08/18 Unknown History Amlodipine Besylate [Norvasc] 5 mg PO QDAY 11/14/18 12/08/18 Unknown History Flonase 50 mcg NS BID 11/14/18 12/08/18 Unknown History Gabapentin [Neurontin] 300 mg PO DAILY 11/14/18 12/08/18 Unknown History Acetaminophen/Codeine [Tylenol 1 tab PO Q6H PRN #8 tab 12/06/18 12/08/18 Unknown Rx /Codeine # 3 tab] ALBUTEROL NEB's [Proventil 0.083% 2.5 mg IH Q4H PRN #30 nebu 12/08/18 Unknown Rx NEBS] Active Medications: Generic Name Dose Route Start Last Admin Trade Name Freq PRN Reason Stop Dose Admin Acetaminophen 650 mg 12/06/18 19:55 Tylenol PO Q4H PRN Pain MILD(1-3)/Fever >100.5/QUINONEZ Acetaminophen/Codeine Phosphate 1 tab 12/06/18 19:53 Tylenol #3 PO Q6H PRN PAIN Albuterol 2.5 mg 12/06/18 19:55 Proventil IH Q4H PRN Shortness Of Breath Atorvastatin Calcium 20 mg 12/06/18 22:00 12/07/18 22:00 Lipitor PO 20 mg QHS ANNI Administration Clopidogrel Bisulfate 75 mg 12/07/18 10:00 12/08/18 09:48 Plavix PO 75 mg QDAY ANNI Administration Dextrose 50 ml 12/06/18 20:18 D50w (25gm) Syringe IV Q30MIN PRN Hypoglycemia Escitalopram Oxalate 10 mg 12/07/18 10:00 12/08/18 09:48 Lexapro PO 10 mg DAILY ANNI Administration Fluticasone Propionate 50 mcg 12/06/18 22:00 12/08/18 09:48 Flonase NS 50 mcg BID ANNI Administration Gabapentin 300 mg 12/07/18 10:00 12/08/18 09:47 Neurontin PO 300 mg DAILY ANNI Administration Sodium Chloride 100 mls @ 999 mls/hr 12/07/18 11:49 Nacl 0.9% IV JUAN CARLOS PRN Hypotension Insulin Human Lispro 0 unit 12/06/18 22:00 12/08/18 07:55 Humalog SUB-Q Not Given ACHS [facility] Protocol Losartan Potassium 50 mg 12/07/18 10:00 12/08/18 09:48 Cozaar PO 50 mg QDAY ANNI Administration Ondansetron HCl 4 mg 12/06/18 19:55 Zofran IV Q8H PRN Nausea And Vomiting Pantoprazole Sodium 40 mg 12/06/18 22:00 12/08/18 09:48 Protonix PO 40 mg BID ANNI Administration Sevelamer Carbonate 1,600 mg 12/07/18 08:00 12/08/18 08:36 Renvela PO 1,600 mg TIDWM ANNI Administration Sodium Chloride 10 ml 12/06/18 22:00 12/08/18 09:49 Sodium Chloride Flush Syringe 10 Ml IV 10 ml BID ANNI Administration Sodium Chloride 10 ml 12/06/18 19:55 Sodium Chloride Flush Syringe 10 Ml IV PRN PRN LINE FLUSH
--- NOTE | 2018-12-08 11:23 | Discharge Summary ---
Providers - Providers Date of Admission: 12/06/18 19:55 Attending physician: ANGELITO ALFORD MD 12/06/18 19:52 Consult to Physician [CONS] Routine Comment: Consulting Provider: MIRYAM ARIZA Physician Instructions: Reason For Exam: ESRD 12/06/18 20:16 Physical Therapy Evaluation and Treat [CONS] Routine Comment: Reason For Exam: weakness Primary care physician: HEAD FILTER PRESS TENDER Hospitalization Reason for admission: AMS Condition: Stable Hospital course: 72 YO Female SNF Resident currently undergoing inpatient Rehab with ESRD on HD(M,W,F), DM complicated by Gastroparesis, CAD S/P Stent Placement, HTN, HLD, CVA with RHP presents to ED for evaluation. Pt states that she has been "feeling sick" all day today. Further history provided by rehab facility staff. per staff, the patient was found to be confused and short of breath with pulse oximetry of 71%. EMS notified and upon arrival the patient was found to be in respiratory distress.Pt treated with supplemental oxygen and transferred to [facility] for further care and evaluation. Pt seen and evaluated in ED and found to have ESRD, Acute Respiratory Failure and Encephalopathy. Pt admitted to medical floor. Nephrology consulted in ED. No reports of fever, chills, CP, Palpitations, trauma, syncope, recent ill contacts, skin rash, or headache. Prior admission on 11/14/18 reviewed. All listed medication reconciled at time of admission. * Following careful review it appears the patient was here in the ED earlier and for shoulder arthritis, got morphin, went back to snf and came back with AMS and hypoxic respiratory failure which is now improving * Patient is back to baseline and can be discharged. - Patient Problems (1) Respiratory failure with hypoxia likely secondary to medication interaction (2) ESRD (end stage renal disease) (3) HTN (hypertension) (4) Encephalopathy-Acute Metabolic Encephalopathy- CT head negative (5) Debility Disposition: DC/TX-03 SNF [facility] Time spent for discharge: 35 MINS Core Measure Documentation - Palliative Care Palliative Care/ Comfort Measures: Not Applicable - Core Measures Any of the following diagnoses?: none Exam - Constitutional Vitals: Temp Pulse Resp BP Pulse Ox 97.8 F 69 18 143/40 97 12/08/18 02:28 12/08/18 10:00 12/08/18 10:00 12/08/18 09:48 12/08/18 10:00 General appearance: Present: no acute distress, well-nourished - EENT Eyes: Present: PERRL, EOM intact ENT: hearing intact - Neck Neck: Present: supple, normal ROM - Respiratory Respiratory effort: normal Respiratory: bilateral: CTA - Cardiovascular Rhythm: regular Heart Sounds: Present: S1 & S2. Absent: systolic murmur - Extremities Extremities: no ischemia, pulses intact, pulses symmetrical, No edema, normal temperature, normal color, Full ROM Peripheral Pulses: within normal limits - Abdominal General gastrointestinal: Present: soft, non-tender, non-distended, normal bowel sounds - Integumentary Integumentary: Present: dry - Musculoskeletal Musculoskeletal: strength equal bilaterally - Psychiatric Psychiatric: appropriate mood/affect, cooperative - Neurologic Neurologic: CNII-XII intact - Allied Health Allied health notes reviewed: nursing Plan Activity: advance as tolerated, fall precautions Diet: renal Special Instructions: record daily BP diary Follow up with: PRIMARY MD KRYSTYNA [Primary Care Provider] - 7 Days MICHELA JONES MD [Staff Physician] - 7 Days Prescriptions: ALBUTEROL NEB's [Proventil 0.083% NEBS] 2.5 mg IH Q4H PRN #30 nebu PRN Reason: Shortness Of Breath
[2018-12-08] MEDS ORDERED: NACL 0.9 (PRIMING MACHINE ONLY DIALYSIS) MC ONE (12:47)
--- NOTE | 2018-12-08 17:14 | Progress Note ---
Assessment and Plan Assessment and plan: 72 YO Female SNF Resident currently undergoing inpatient Rehab with ESRD on HD(M,W,F), DM complicated by Gastroparesis, CAD S/P Stent Placement, HTN, HLD, CVA with RHP presents to ED for evaluation. Pt states that she has been "feeling sick" all day today. Further history provided by rehab facility staff. per staff, the patient was found to be confused and short of breath with pulse oximetry of 71%. EMS notified and upon arrival the patient was found to be in respiratory distress.Pt treated with supplemental oxygen and transferred to [facility] for further care and evaluation. Pt seen and evaluated in ED and found to have ESRD, Acute Respiratory Failure and Encephalopathy. Pt admitted to medical floor. Nephrology consulted in ED. No reports of fever, chills, CP, Palpitations, trauma, syncope, recent ill contacts, skin rash, or headache. Prior admission on 11/14/18 reviewed. All listed medication reconciled at time of admission. * Following careful review it appears the patient was here in the ED earlier and for shoulder arthritis, got morphin, went back to snf and came back with AMS and hypoxic respiratory failure which is now improving * patient was hypoxic on ABG, AND IS AWAITING HOME O2 APPROVAL * Continue dialysis today - Patient Problems (1) Respiratory failure with hypoxia likely secondary to medication interaction (2) ESRD (end stage renal disease) (3) HTN (hypertension) (4) Encephalopathy-Acute Metabolic Encephalopathy- CT head negative (5) Debility Plan Continue supportive care Continue oxygen Repeat ABG in am on room air Nebs PRN Nephrology following Aspiration precautions DVT/GI prophy History Interval history: Patient seen and examined, mental status, improving. Planned to discharge but home o2 not yet set up Due to insurance delay Hospitalist Physical - Physical exam Narrative exam: General appearance: Present: no acute distress, well-nourished - EENT Eyes: Present: PERRL, EOM intact ENT: hearing intact - Neck Neck: Present: supple, normal ROM - Respiratory Respiratory effort: normal Respiratory: bilateral: CTA - Cardiovascular Rhythm: regular Heart Sounds: Present: S1 & S2. Absent: systolic murmur - Extremities Extremities: no ischemia, pulses intact, pulses symmetrical, No edema, normal temperature, normal color, Full ROM Peripheral Pulses: within normal limits - Abdominal General gastrointestinal: Present: soft, non-tender, non-distended, normal bowel sounds - Integumentary Integumentary: Present: dry - Musculoskeletal Musculoskeletal: strength equal bilaterally - Psychiatric Psychiatric: appropriate mood/affect, cooperative - Neurologic Neurologic: CNII-XII intact - Allied Health Allied health notes reviewed: nursing - Constitutional Vitals: Temp Pulse Resp BP Pulse Ox 97.9 F 60 16 129/54 100 12/08/18 15:15 12/08/18 15:15 12/08/18 15:15 12/08/18 15:15 12/08/18 15:15 General appearance: Present: no acute distress, well-nourished Results - Labs CBC & Chem 7: 12/08/18 05:54 12/08/18 05:54 Labs: Laboratory Last Values WBC 3.4 K/mm3 (4.5-11.0) L 12/08/18 05:54 RBC 3.70 M/mm3 (3.65-5.03) 12/08/18 05:54 Hgb 12.5 gm/dl (10.1-14.3) 12/08/18 05:54 Hct 38.9 % (30.3-42.9) 12/08/18 05:54 MCV 105 fl (79-97) H 12/08/18 05:54 MCH 34 pg (28-32) H 12/08/18 05:54 MCHC 32 % (30-34) 12/08/18 05:54 RDW 18.4 % (13.2-15.2) H 12/08/18 05:54 Plt Count 89 K/mm3 (140-440) L 12/08/18 05:54 Lymph % (Auto) 24.4 % (13.4-35.0) 12/08/18 05:54 Collin % (Auto) 9.8 % (0.0-7.3) H 12/08/18 05:54 Eos % (Auto) 7.2 % (0.0-4.3) H 12/08/18 05:54 Baso % (Auto) 2.5 % (0.0-1.8) H 12/08/18 05:54 Lymph # 0.8 K/mm3 (1.2-5.4) L 12/08/18 05:54 Collin # 0.3 K/mm3 (0.0-0.8) 12/08/18 05:54 Eos # 0.2 K/mm3 (0.0-0.4) 12/08/18 05:54 Baso # 0.1 K/mm3 (0.0-0.1) 12/08/18 05:54 Add Manual Diff Complete 12/08/18 05:54 Seg Neutrophils % 56.1 % (40.0-70.0) 12/08/18 05:54 Seg Neutrophils # 1.9 K/mm3 (1.8-7.7) 12/08/18 05:54 PT 14.5 Sec. (12.2-14.9) 12/06/18 16:01 INR 1.16 (0.87-1.13) H 12/06/18 16:01 APTT 33.0 Sec. (24.2-36.6) 12/06/18 16:01 POC ABG pH 7.387 (7.35-7.45) 12/08/18 09:40 POC ABG pCO2 48.6 (35-45) H 12/08/18 09:40 POC ABG pO2 < 50 (80-105) L 12/08/18 09:40 POC ABG HCO3 29.3 (22-26 mml/L) 12/08/18 09:40 POC ABG Total CO2 31 (23-27mmol/L) 12/08/18 09:40 POC ABG O2 Sat 82 12/08/18 09:40 POC ABG Base Excess 4 ((-2) - (+3)mmol/L) 12/08/18 09:40 FiO2 21 % 12/08/18 09:40 Sodium 138 mmol/L (137-145) 12/08/18 05:54 Potassium 4.0 mmol/L (3.6-5.0) D 12/08/18 05:54 Chloride 98.8 mmol/L (98-107) 12/08/18 05:54 Carbon Dioxide 21 mmol/L (22-30) L 12/08/18 05:54 Anion Gap 22 mmol/L 12/08/18 05:54 BUN 21 mg/dL (7-17) H 12/08/18 05:54 Creatinine 4.4 mg/dL (0.7-1.2) H 12/08/18 05:54 Estimated GFR 12 ml/min 12/08/18 05:54 BUN/Creatinine Ratio 5 % 12/08/18 05:54 Glucose 95 mg/dL (65-100) 12/08/18 05:54 POC Glucose 96 (70-105) 12/08/18 16:36 Lactic Acid 1.50 mmol/L (0.7-2.0) 12/06/18 16:01 Calcium 8.7 mg/dL (8.4-10.2) 12/08/18 05:54 Total Bilirubin 0.40 mg/dL (0.1-1.2) 12/06/18 17:49 AST 43 units/L (5-40) H 12/06/18 17:49 ALT 24 units/L (7-56) 12/06/18 17:49 Alkaline Phosphatase 177 units/L (35-129) H 12/06/18 17:49 Troponin T 0.274 ng/mL (0.00-0.029) H* 12/06/18 17:49 Total Protein 7.5 g/dL (6.3-8.2) 12/06/18 17:49 Albumin 4.3 g/dL (3.9-5) 12/06/18 17:49 Albumin/Globulin Ratio 1.3 % 12/06/18 17:49 Triglycerides 82 mg/dL (2-149) 12/06/18 17:49 Cholesterol 123 mg/dL (50-199) 12/06/18 17:49 LDL Cholesterol Direct 41 mg/dL (50-130) L 12/06/18 17:49 HDL Cholesterol 72 mg/dL (40-59) H 12/06/18 17:49 Cholesterol/HDL Ratio 1.70 % 12/06/18 17:49 Hepatitis A IgM Ab Non-reactive (NonReactive) 12/07/18 13:48 Hep Bs Antigen Non-reactive (Negative) 12/07/18 13:48 Hep B Core IgM Ab Non-reactive (NonReactive) 12/07/18 13:48 Hepatitis C Antibody Non-reactive (NonReactive) 12/07/18 13:48 Active Medications - Current Medications Current Medications: Generic Name Dose Route Start Last Admin Trade Name Freq PRN Reason Stop Dose Admin Acetaminophen 650 mg 12/06/18 19:55 Tylenol PO Q4H PRN Pain MILD(1-3)/Fever >100.5/QUINONEZ Acetaminophen/Codeine Phosphate 1 tab 12/06/18 19:53 Tylenol #3 PO Q6H PRN PAIN Albuterol 2.5 mg 12/06/18 19:55 Proventil IH Q4H PRN Shortness Of Breath Atorvastatin Calcium 20 mg 12/06/18 22:00 12/07/18 22:00 Lipitor PO 20 mg QHS ANNI Administration Clopidogrel Bisulfate 75 mg 12/07/18 10:00 12/08/18 09:48 Plavix PO 75 mg QDAY ANNI Administration Dextrose 50 ml 12/06/18 20:18 D50w (25gm) Syringe IV Q30MIN PRN Hypoglycemia Escitalopram Oxalate 10 mg 12/07/18 10:00 12/08/18 09:48 Lexapro PO 10 mg DAILY ANNI Administration Fluticasone Propionate 50 mcg 12/06/18 22:00 12/08/18 09:48 Flonase NS 50 mcg BID ANNI Administration Gabapentin 300 mg 12/07/18 10:00 12/08/18 09:47 Neurontin PO 300 mg DAILY ANNI Administration Sodium Chloride 100 mls @ 999 mls/hr 12/07/18 11:49 Nacl 0.9% IV JUAN CARLOS PRN Hypotension Insulin Human Lispro 0 unit 12/06/18 22:00 12/08/18 16:48 Humalog SUB-Q Not Given ACHS [facility] Protocol Losartan Potassium 50 mg 12/07/18 10:00 12/08/18 09:48 Cozaar PO 50 mg QDAY ANNI Administration Ondansetron HCl 4 mg 12/06/18 19:55 Zofran IV Q8H PRN Nausea And Vomiting Pantoprazole Sodium 40 mg 12/06/18 22:00 12/08/18 09:48 Protonix PO 40 mg BID ANNI Administration Sevelamer Carbonate 1,600 mg 12/07/18 08:00 12/08/18 11:23 Renvela PO Not Given TIDWM ANNI Sodium Chloride 10 ml 12/06/18 22:00 12/08/18 09:49 Sodium Chloride Flush Syringe 10 Ml IV 10 ml BID ANNI Administration Sodium Chloride 10 ml 12/06/18 19:55 Sodium Chloride Flush Syringe 10 Ml IV PRN PRN LINE FLUSH
[2018-12-09] MEDS: HumaLOG SUB-Q SCH ×2 (07:34→12:01)
[2018-12-09] MEDS: FLONASE NS SCH (09:13)
[2018-12-09] MEDS: LEXAPRO PO SCH (09:13)
[2018-12-09] MEDS: RENVELA PO SCH ×2 (09:13→13:47)
[2018-12-09] MEDS: COZAAR PO SCH (09:13)
[2018-12-09] MEDS: PROTONIX PO SCH (09:13)
[2018-12-09] MEDS: GABAPENTIN PO SCH (09:13)
[2018-12-09] MEDS: SODIUM CHLORIDE FLUSH SYRINGE 10 ML IV SCH (09:13)
[2018-12-09] MEDS: PLAVIX PO SCH (09:13)
--- NOTE | 2018-12-09 10:02 | Discharge Summary ---
Providers - Providers Date of Admission: 12/06/18 19:55 Date of discharge: 12/11/18 Attending physician: LEIGHANN IVERSON MD 12/06/18 19:52 Consult to Physician [CONS] Routine Comment: Consulting Provider: MIRYAM ARIZA Physician Instructions: Reason For Exam: ESRD 12/06/18 20:16 Physical Therapy Evaluation and Treat [CONS] Routine Comment: Reason For Exam: weakness Primary care physician: DAM TENDER ASSISTANT Hospitalization Reason for admission: ESRD on HD, metabolic encepahlopathy, hypoxia Condition: Stable Hospital course: 72 YO Female SNF Resident currently undergoing inpatient Rehab with ESRD on HD(M,W,F), DM complicated by Gastroparesis, CAD S/P Stent Placement, HTN, HLD, CVA with RHP presents to ED for evaluation. Pt states that she has been "feeling sick" all day today. Further history provided by rehab facility staff. per staff, the patient was found to be confused and short of breath with pulse oximetry of 71%. EMS notified and upon arrival the patient was found to be in respiratory distress.Pt treated with supplemental oxygen and transferred to [facility] for further care and evaluation. Pt seen and evaluated in ED and found to have ESRD, Acute Respiratory Failure and Encephalopathy. Pt admitted to medical floor. Nephrology consulted in ED. No reports of fever, chills, CP, Pal pitations, trauma, syncope, recent ill contacts, skin rash, or headache. Prior admission on 11/14/18 reviewed. All listed medication reconciled at time of admission. * Following careful review it appears the patient was here in the ED earlier and for shoulder arthritis, got morphin, went back to snf and came back with AMS and hypoxic respiratory failure which is now improving * patient was hypoxic on ABG, HOME O2 arranged * Continue dialysis as acheduled - Patient Problems (1) Respiratory failure with hypoxia; patient need home o2 and arranged (2) ESRD (end stage renal disease); continue dialysis as scheduled (3) HTN (hypertension); continue home medication (4) Encephalopathy-Acute Metabolic Encephalopathy- CT head negative. At base line. (5) Debility; PT/OT consult appreciated Disposition: DC/TX-06 HOME UNDER HOME [facility] Time spent for discharge: 32 minutes - Discharge Diagnoses (1) Debility Status: Acute (2) ESRD (end stage renal disease) on dialysis Status: Acute (3) Encephalopathy Status: Acute (4) Hypoxia Status: Acute (5) Metabolic acidosis Status: Acute Core Measure Documentation - Palliative Care Palliative Care/ Comfort Measures: Not Applicable - Core Measures Any of the following diagnoses?: none Exam - Physical Exam Narrative exam: Not in cardiopulmonary distress. The patient is obese. Vital signs as documented. Head exam is unremarkable. No scleral icterus . Neck is without jugular venous distension, thyromegaly, or carotid bruits. Lungs are clear to auscultation. Cardiac exam reveals regular rate and Rhythm. First and second heart sounds normal. No murmurs, rubs or gallops. Abdominal exam reveals normal bowel sounds, no masses, no organomegaly and no aortic enlargement. Extremities are nonedematous and both femoral and pedal pulses are normal. MILK POWDER GRINDER: Patient is alert, hard of hearing and talks very slowly - Constitutional Vitals: Temp Pulse Resp BP Pulse Ox 98.3 F 62 20 149/43 100 12/09/18 07:36 12/09/18 07:36 12/09/18 07:36 12/09/18 07:36 12/09/18 07:36 Plan Activity: advance as tolerated Weight Bearing Status: Weight Bear as Tolerated Diet: renal Follow up with: PRIMARY MD KRYSTYNA [Primary Care Provider] - 7 Days MICHELA JONES MD [Staff Physician] - 7 Days Prescriptions: ALBUTEROL NEB's [Proventil 0.083% NEBS] 2.5 mg IH Q4H PRN #30 nebu PRN Reason: Shortness Of Breath
[2018-12-09 13:48] VITALS: BP 158/51
--- NOTE | 2018-12-09 14:24 | Progress Note ---
Assessment and Plan - Patient Problems (1) ESRD (end stage renal disease) on dialysis Current Visit: Yes Status: Acute Plan to address problem: ESRD on hemodialysis -Will initiate HD - continue HD MWF access : right arm AVF (2) HTN (hypertension) Current Visit: Yes Status: Acute Qualifiers: Hypertension type: essential hypertension Qualified Code(s): I10 - Essential (primary) hypertension Plan to address problem: HTN: continue current medications. (3) Diastolic CHF Current Visit: No Status: Acute Qualifiers: Heart failure chronicity: acute on chronic Qualified Code(s): I50.33 - Acute on chronic diastolic (congestive) heart failure Plan to address problem: Acute on Chronic Diastolic CHF - I reviewed echocardiogram with EF : 65% with dilated atria . -reviewed CXR with pulmonary edema on presentation - continue ultrafiltration . (4) Metabolic acidosis Current Visit: Yes Status: Acute Plan to address problem: metabolic acidosis -continue dialysis Subjective Principal diagnosis: Acute encephalopathy/ESRD Interval history: 72 year old with medical history of ESRD on Hemodialysis on MWF , DM type II , Gastroparesis , CAD s/p stent , HLD, CVA presents with confusion and shortness of breath. patient received HD on 12/08 and 12/09 she was seen today , physical therapy in the room. She is not on oxygen, no peripheral edema or dyspnea. Objective - Vital Signs Vital signs: Vital Signs - 12hr 12/09/18 12/09/18 12/09/18 07:36 10:00 13:05 Temperature 98.3 F 97.6 F Pulse Rate 62 62 68 Respiratory 20 20 Rate Blood Pressure 149/43 158/51 O2 Sat by Pulse 100 97 Oximetry 12/09/18 13:57 Temperature Pulse Rate Respiratory Rate Blood Pressure O2 Sat by Pulse 100 Oximetry - General Appearance General appearance: well-developed, well-nourished EENT: ATNC, PERRL Neck: no JVD Respiratory: Present: Rales (at bases), Decreased Breath Sounds Cardiology: regular, S1S2 Gastrointestinal: normal, normoactive bowel sounds Integumentary: no rash Neurologic: alert and oriented x3, CN 3-12 intact Psychiatric: mood/affect appropriate - Lab 12/08/18 05:54 12/08/18 05:54 Most recent lab results Calcium 8.7 mg/dL (8.4-10.2) 12/08/18 05:54 - Imaging Chest x-ray: image reviewed (i reviewed CXR with pulmonary edema. ) Medications & Allergies - Medications Allergies/Adverse Reactions: Allergies No Known Allergies Allergy (Verified 06/14/13 10:48) Home Medications: Home Medications Medication Instructions Recorded Confirmed Last Taken Type Clopidogrel [Plavix] 75 mg PO QDAY 04/21/13 12/08/18 04/17/18 09:00 History Escitalopram [Lexapro] 10 mg PO DAILY 03/16/14 12/08/18 04/17/18 09:00 History Sevelamer Carbonate [Renvela] 1,600 mg PO TIDWM 09/05/14 12/08/18 04/17/18 09:00 History AtorvaSTATin [Lipitor] 20 mg PO DAILY 09/28/14 12/08/18 04/17/18 09:00 History Labetalol HCl [Labetalol 300mg TAB] 300 mg PO DAILY 04/18/18 12/08/18 04/17/18 09:00 History Pantoprazole [Protonix TAB] 40 mg PO BID 15 Days #30 tablet 04/19/18 12/08/18 Unknown Rx Losartan [Cozaar] 50 mg PO QDAY 07/03/18 12/08/18 Unknown History Amlodipine Besylate [Norvasc] 5 mg PO QDAY 11/14/18 12/08/18 Unknown History Flonase 50 mcg NS BID 11/14/18 12/08/18 Unknown History Gabapentin [Neurontin] 300 mg PO DAILY 11/14/18 12/08/18 Unknown History Acetaminophen/Codeine [Tylenol 1 tab PO Q6H PRN #8 tab 12/06/18 12/08/18 Unknown Rx /Codeine # 3 tab] ALBUTEROL NEB's [Proventil 0.083% 2.5 mg IH Q4H PRN #30 nebu 12/08/18 Unknown Rx NEBS] Active Medications: Generic Name Dose Route Start Last Admin Trade Name Freq PRN Reason Stop Dose Admin Acetaminophen 650 mg 12/06/18 19:55 Tylenol PO Q4H PRN Pain MILD(1-3)/Fever >100.5/QUINONEZ Acetaminophen/Codeine Phosphate 1 tab 12/06/18 19:53 Tylenol #3 PO Q6H PRN Pain, Moderate (4-6) Albuterol 2.5 mg 12/06/18 19:55 Proventil IH Q4H PRN Shortness Of Breath Atorvastatin Calcium 20 mg 12/06/18 22:00 12/08/18 21:22 Lipitor PO 20 mg QHS ANNI Administration Clopidogrel Bisulfate 75 mg 12/07/18 10:00 12/09/18 09:13 Plavix PO 75 mg QDAY ANNI Administration Dextrose 50 ml 12/06/18 20:18 D50w (25gm) Syringe IV Q30MIN PRN Hypoglycemia Escitalopram Oxalate 10 mg 12/07/18 10:00 12/09/18 09:13 Lexapro PO 10 mg DAILY ANNI Administration Fluticasone Propionate 50 mcg 12/06/18 22:00 12/09/18 09:13 Flonase NS 50 mcg BID ANNI Administration Gabapentin 300 mg 12/07/18 10:00 12/09/18 09:13 Neurontin PO 300 mg DAILY ANNI Administration Sodium Chloride 100 mls @ 999 mls/hr 12/07/18 11:49 Nacl 0.9% IV JUAN CARLOS PRN Hypotension Insulin Human Lispro 0 unit 12/06/18 22:00 12/09/18 12:01 Humalog SUB-Q Not Given ACHS [facility] Protocol Losartan Potassium 50 mg 12/07/18 10:00 12/09/18 09:13 Cozaar PO 50 mg QDAY ANNI Administration Ondansetron HCl 4 mg 12/06/18 19:55 Zofran IV Q8H PRN Nausea And Vomiting Pantoprazole Sodium 40 mg 12/06/18 22:00 12/09/18 09:13 Protonix PO 40 mg BID ANNI Administration Sevelamer Carbonate 1,600 mg 12/07/18 08:00 12/09/18 13:47 Renvela PO 1,600 mg TIDWM ANNI Administration Sodium Chloride 10 ml 12/06/18 22:00 12/09/18 09:13 Sodium Chloride Flush Syringe 10 Ml IV 10 ml BID ANNI Administration Sodium Chloride 10 ml 12/06/18 19:55 Sodium Chloride Flush Syringe 10 Ml IV PRN PRN LINE FLUSH
== END 2018-12-09 17:00 | disposition home health service (06) | DRG 291 ==
LOC: ED 14:02 → 2B-ACE 19:55
PROVIDERS: ADMIT Internal Medicine; ATTEND Internal Medicine
PROC: 5A1D70Z Performance of Urinary Filtration, Intermittent, Less than 6 Hours Per Day (ICD-10-PCS; principal; 2018-12-07)
PROC: 5A1D70Z Performance of Urinary Filtration, Intermittent, Less than 6 Hours Per Day (ICD-10-PCS; 2018-12-08)
PROC: 4A033R1 Measurement of Arterial Saturation, Peripheral, Percutaneous Approach (ICD-10-PCS; 2018-12-08)
DX: I13.2 Hypertensive heart and chronic kidney disease with heart failure and with stage 5 chronic kidney disease, or end stage renal disease (principal); G93.41 Metabolic encephalopathy; J96.01 Acute respiratory failure with hypoxia; N18.6 End stage renal disease; I50.33 Acute on chronic diastolic (congestive) heart failure; E87.2 Acidosis; I69.351 Hemiplegia and hemiparesis following cerebral infarction affecting right dominant side; N25.81 Secondary hyperparathyroidism of renal origin; E87.70 Fluid overload, unspecified; E11.22 Type 2 diabetes mellitus with diabetic chronic kidney disease; E87.5 Hyperkalemia; D64.9 Anemia, unspecified; G43.909 Migraine, unspecified, not intractable, without status migrainosus; F41.8 Other specified anxiety disorders; I25.10 Atherosclerotic heart disease of native coronary artery without angina pectoris; Z95.5 Presence of coronary angioplasty implant and graft; Z99.2 Dependence on renal dialysis; Z79.899 Other long term (current) drug therapy; Z89.611 Acquired absence of right leg above knee; Z82.49 Family history of ischemic heart disease and other diseases of the circulatory system; Z83.3 Family history of diabetes mellitus; I25.2 Old myocardial infarction
CPT/HCPCS: 36415; 36600; 70450; 71045; 78582; 80048; 80053; 80061; 80074; 82140; 82803; 82962; 84484; 85025; 85610; 85730; 93005; 93010; 94640; 94760; G0378; A9270-GY; A9540; A9558; J0610; J7030